=== PATIENT | female | born 1980 | race Hispanic/Latino ===

== ENCOUNTER 2018-02-26 20:28 | Emergency (ER) | payer OTHER ==
[2018-02-26 21:47] LABS: Urine Blood TRACE (NEG); Urine Glucose NEGATIVE (NEG); Urine Protein NEGATIVE (NEG)
--- NOTE | 2018-02-26 21:58 | RAD REPORT ---
EXAM DESCRIPTION: Key Yu (2 Views)02/26/2018 9:33 pm CLINICAL HISTORY: Chest pain COMPARISON: May 2017 FINDINGS: The lungs appear clear of acute infiltrate. The heart is normal size IMPRESSION: No acute abnormalities displayed
--- NOTE | 2018-02-26 23:31 | EDPHYS ---
Physician Documentation [facility] Name: Faiza Brown Age: 37 yrs Sex: Female : 1980 Arrival Date: 02/26/2018 Time: 20:45 Bed 25 Private MD: ED Physician Galen Rodriguez HPI: 02/26 23:20 This 37 yrs old Female presents to ER via EMS with complaints of High Blood snw Pressure. 23:20 The patient has elevated blood pressure and discovered this hx of htn, pt states her snw pressures have been high but when she took her antihypertensive, "I bottomed out". Onset: The symptoms/episode began/occurred acutely, 3 day(s) ago, and became worse today, and became persistent. Associated signs and symptoms: Pertinent positives: headache, upper extremity paresthesias. Severity of symptoms: At its worst the blood pressure was 220 mm Hg. The patient has experienced similar episodes in the past. The patient has been recently seen by a physician: the patient's primary care provider, to treat htn. 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 - Social history:: Smoking status: Patient/guardian denies using tobacco, Patient/guardian denies using alcohol, street drugs. - Ebola Screening: : Patient negative for fever greater than or equal to 101.5 degrees Fahrenheit, and additional compatible Ebola Virus Disease symptoms Patient denies exposure to infectious person Patient denies travel to an Ebola-affected area in the 21 days before illness onset. ROS: 23:23 Constitutional: Negative for fever, chills, and weight loss, Eyes: Negative for injury, snw pain, redness, and discharge, ENT: Negative for injury, pain, and discharge, Neck: Negative for injury, pain, and swelling, Cardiovascular: Negative for chest pain, palpitations, and edema, Respiratory: Negative for shortness of breath, cough, wheezing, and pleuritic chest pain, Abdomen/GI: Negative for abdominal pain, nausea, vomiting, diarrhea, and constipation, Back: Negative for injury and pain, : Negative for injury, bleeding, discharge, and swelling. 23:23 Skin: Negative for injury, rash, and discoloration, Neuro: Negative for headache, weakness, numbness, tingling, and seizure, Psych: Negative for depression, anxiety, suicide ideation, homicidal ideation, and hallucinations. 23:23 MS/extremity: Positive for paresthesias, of the right arm. Exam: 23:30 Constitutional: This is a well developed, well nourished patient who is awake, alert, snw and in no acute distress. Head/Face: Normocephalic, atraumatic. Eyes: Pupils equal round and reactive to light, extra-ocular motions intact. Lids and lashes normal. Conjunctiva and sclera are non-icteric and not injected. Cornea within normal limits. Periorbital areas with no swelling, redness, or edema. ENT: Nares patent. No nasal discharge, no septal abnormalities noted. Tympanic membranes are normal and external auditory canals are clear. Oropharynx with no redness, swelling, or masses, exudates, or evidence of obstruction, uvula midline. Mucous membranes moist. Neck: Trachea midline, no thyromegaly or masses palpated, and no cervical lymphadenopathy. Supple, full range of motion without nuchal rigidity, or vertebral point tenderness. No Meningismus. Chest/axilla: Normal chest wall appearance and motion. Nontender with no deformity. No lesions are appreciated. Cardiovascular: Regular rate and rhythm with a normal S1 and S2. No gallops, murmurs, or rubs. Normal PMI, no JVD. No pulse deficits. Respiratory: Lungs have equal breath sounds bilaterally, clear to auscultation and percussion. No rales, rhonchi or wheezes noted. No increased work of breathing, no retractions or nasal flaring. Abdomen/GI: Soft, non-tender, with normal bowel sounds. No distension or tympany. No guarding or rebound. No evidence of tenderness throughout. Back: No spinal tenderness. No costovertebral tenderness. Full range of motion. Skin: Warm, dry with normal turgor. Normal color with no rashes, no lesions, and no evidence of cellulitis. MS/ Extremity: Pulses equal, no cyanosis. Neurovascular intact. Full, normal range of motion. Neuro: Awake and alert, GCS 15, oriented to person, place, time, and situation. Cranial nerves II-XII grossly intact. Motor strength 5/5 in all extremities. Sensory grossly intact. Cerebellar exam normal. Normal gait. Psych: Awake, alert, with orientation to person, place and time. Behavior, mood, and affect are within normal limits. Vital Signs: 20:35 BP 158 / 96; Pulse 84; Resp 18; Temp 99.1(O); Pulse Ox 100% on R/A; Weight 92.99 kg fc (R); Height 5 ft. 4 in. (162.56 cm) (R); Pain 2/10; 22:54 BP 118 / 79 Supine; Pulse 81; wh 22:54 BP 141 / 87 Sitting; Pulse 83; wh 22:54 BP 126 / 89 Standing; Pulse 93; wh 02/27 00:00 BP 124 / 83; Pulse 85; Resp 18; Pulse Ox 98% on R/A; wh 02/26 20:35 Body Mass Index 35.19 (92.99 kg, 162.56 cm) fc MDM: 02/26 21:50 Patient medically screened. snw 23:31 Data reviewed: vital signs, nurses notes. Data interpreted: Pulse oximetry: is 100 %. snw Interpretation: normal. Counseling: I had a detailed discussion with the patient and/or guardian regarding: the historical points, exam findings, and any diagnostic results supporting the discharge/admit diagnosis, the presence of at least one elevated blood pressure reading (>120/80) during this emergency department visit, lab results, radiology results, the need for outpatient follow up, to return to the emergency department if symptoms worsen or persist or if there are any questions or concerns that arise at home. Special discussion: Based on the patient's history, exam, and Dx evaluation, there is no indication for emergent intervention or inpatient Tx. It is understood by the patient/guardian that if the Sx's persist or worsen they need to return immediately for re-evaluation. I have referred the patient to see his PCP for further evaluation of high blood pressure. Based on the history and exam findings, there is no indication for further emergent testing or inpatient evaluation. I discussed with the patient/guardian the need to see the superintendent tests for further evaluation of the symptoms. I discussed with the patient/guardian the need to see the primary care provider for further evaluation of the symptoms. 02/26 21:01 Order name: Urine Dipstick--Ancillary (enter results); Complete Time: 21:50 02/26 21:17 Order name: Troponin (emerg Dept Use Only); Complete Time: 22:37 snw 02/26 21:02 Order name: EKG; Complete Time: 21:02 02/26 21:02 Order name: EKG - Nurse/Tech; Complete Time: 21:02 02/26 21:17 Order name: Chest Pa And Lat (2 Views) XRAY; Complete Time: 22:07 snw 02/26 22:17 Order name: Urine --Ancillary (enter results); Complete Time: 22:23 mt 02/26 21:17 Order name: Urine Test (obtain specimen); Complete Time: 22:18 snw 02/26 22:48 Order name: Orthostatics; Complete Time: 22:54 snw Administered Medications: No medications were administered Disposition: 02/26/18 23:30 Discharged to Home. Impression: Essential (primary) hypertension. - Condition is Stable. - Discharge Instructions: Hypertension, Rehydration, Adult, Managing Your Hypertension. - Work release form, Medication Reconciliation Form, Thank You Letter, Antibiotic Education, Prescription Opioid Use form. - Follow up: Private Physician; When: 1 - 2 days; Reason: Recheck today's complaints, Continuance of care, Re-evaluation by your physician. Follow up: Emergency Department; When: As needed; Reason: Worsening of condition. Addendum: 03/01/2018 17:28 Co-signature as Attending Physician, Galen Rodriguez MD. g s Signatures: Dispatcher [employer] EDMS Britney Pan, GAS FLOW REGULATOR-C GAS FLOW REGULATOR-CsnPolina Lazaro RN RN Darcy Ngo Gregory, MD MD Corrections: (The following items were deleted from the chart) 02/27 00:01 02/26 23:30 02/26/2018 23:30 Discharged to Home. Impression: Essential (primary) hypertension. Condition is Stable. Forms are Medication Reconciliation Form, Thank You Letter, Antibiotic Education, Prescription Opioid Use. Follow up: Private Physician; When: 1 - 2 days; Reason: Recheck today's complaints, Continuance of care, Re-evaluation by your physician. Follow up: Emergency Department; When: As needed; Reason: Worsening of condition. snw
--- NOTE | 2018-02-26 23:31 | ER ---
Nurse's Notes [facility] Name: Faiza Brown Age: 37 yrs Sex: Female : 1980 Arrival Date: 02/26/2018 Time: 20:45 Bed 25 Private MD: Diagnosis: Essential (primary) hypertension Presentation: 02/26 20:35 Presenting complaint: Patient states: that at 1400 today she started to have right arm fc pain. She checked her bp and it was 188/129 so she took her bp medication early. The pain in the arm went away and she is now having on and off arm numbness. Pt has also had headache x 3 days and ringing in her ears. After taking her regular bp medication pt is complaining of dry mouth and nausea. Transition of care: patient was not received from another setting of care. Onset of symptoms was February 23, 2018. Risk Assessment: Do you want to hurt yourself or someone else? Patient reports no desire to harm self or others. Initial Sepsis Screen: Does the patient meet any 2 criteria? No. Patient's initial sepsis screen is negative. Does the patient have a suspected source of infection? No. Patient's initial sepsis screen is negative. Care prior to arrival: None. 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 - Social history:: Smoking status: Patient/guardian denies using tobacco, Patient/guardian denies using alcohol, street drugs. - Ebola Screening: : Patient negative for fever greater than or equal to 101.5 degrees Fahrenheit, and additional compatible Ebola Virus Disease symptoms Patient denies exposure to infectious person Patient denies travel to an Ebola-affected area in the 21 days before illness onset. Screenin:35 Abuse screen: Denies threats or abuse. Nutritional screening: No deficits noted. fc Tuberculosis screening: No symptoms or risk factors identified. Fall Risk None identified. Assessment: 21:45 General: Appears in no apparent distress. Behavior is calm, cooperative, appropriate wh for age. Pain: Complains of pain in right arm Pain began this afternoon. Neuro: Level of Consciousness is awake, alert, obeys commands, Oriented to person, place, time, situation, Heel Seam Rubber are equal bilaterally. Cardiovascular: Heart tones S1 S2. Respiratory: Airway is patent Respiratory effort is even, unlabored, Respiratory pattern is regular, symmetrical, Breath sounds are clear bilaterally. GI: Abdomen is round non-distended. : No signs and/or symptoms were reported regarding the genitourinary system. EENT: No signs and/or symptoms were reported regarding the EENT system. Derm: Skin is intact, is healthy with good turgor, Skin is pink, warm \T\ dry. normal. Musculoskeletal: Range of motion: intact in all extremities. 22:57 Reassessment: Patient appears in no apparent distress at this time. Patient and/or wh family updated on plan of care and expected duration. Pain level reassessed. Patient is alert, oriented x 3, equal unlabored respirations, skin warm/dry/pink. 23:59 Reassessment: Patient appears in no apparent distress at this time. Patient and/or wh family updated on plan of care and expected duration. Pain level reassessed. Patient is alert, oriented x 3, equal unlabored respirations, skin warm/dry/pink. Patient denies pain at this time. Vital Signs: 20:35 BP 158 / 96; Pulse 84; Resp 18; Temp 99.1(O); Pulse Ox 100% on R/A; Weight 92.99 kg fc (R); Height 5 ft. 4 in. (162.56 cm) (R); Pain 2/10; 22:54 BP 118 / 79 Supine; Pulse 81; wh 22:54 BP 141 / 87 Sitting; Pulse 83; wh 22:54 BP 126 / 89 Standing; Pulse 93; 02/27 00:00 BP 124 / 83; Pulse 85; Resp 18; Pulse Ox 98% on R/A; 02/26 20:35 Body Mass Index 35.19 (92.99 kg, 162.56 cm) ED Course: 02/26 20:35 Arm band placed on Patient placed in an exam room, on a stretcher. 20:35 Patient has correct armband on for positive identification. Placed in gown. Bed in low fc position. Call light in reach. Side rails up X 1. machinist mechanic on. Pulse ox on. NIBP on. 20:35 No provider procedures requiring assistance completed. fc 20:45 Patient arrived in ED. 20:53 Triage completed. 20:59 Galen Rodriguez MD is Attending Physician. 20:59 EKG done, by ED staff, reviewed by Britney LEBLANC. jp3 21:16 Britney Pan FNP-C is PHCP. snw 21:16 Galen Rodriguez MD is Attending Physician. snw 21:33 Chest Pa And Lat (2 Views) XRAY In Process Unspecified. EDMS 21:46 Darcy Foy is Primary Nurse. 22:05 Inserted saline lock: 22 gauge in left antecubital area, using aseptic technique. Blood wh collected. 22:43 Warm blanket given. Pillow given. jp3 02/27 00:01 IV discontinued, intact, bleeding controlled, No redness/swelling at site. wh Administered Medications: No medications were administered Outcome: 02/26 23:30 Discharge ordered by . snw 02/27 00:00 Discharged to home ambulatory, with family. Condition: good Discharge instructions given to patient, Instructed on discharge instructions, follow up and referral plans. POC Hypertension Demonstrated understanding of instructions, follow-up care, POC 00:01 Patient left the ED. Signatures: Dispatcher [employer] EDNM Britney Pan FNP-C LIDAR ANALYST-Csnw Polina Garvey, RN RN Darcy Foy Galen Rodriguez MD MD Earnest Steven jp3
--- NOTE | 2018-02-27 07:56 | EKG ---
Test Date: 2018-02-26 Test Time: 20:59:00 Computer Specialist: AMAN MEASUREMENT RESULTS: Intervals: Rate: 82 [place]: 150 QRSD: 100 QT: 392 QTc: 457 [place]: P: 39 [place]: 150 QRS: 39 T: 23 INTERPRETIVE STATEMENTS: Normal sinus rhythm Normal ECG Compared to ECG 05/15/2017 23:46:02 Myocardial infarct finding no longer present Electronically Signed On 02-27-18 07:56:13 CDT by Woodrow Logan
== END 2018-02-27 00:01 | disposition home or self-care (01) ==
LOC: ER 20:28
DX: I10 Essential (primary) hypertension (principal); I25.2 Old myocardial infarction
CPT/HCPCS: 36415; 71046; 81003; 81025; 84484; 93005; 99284

== ENCOUNTER 2019-03-07 08:03 | Emergency (ER) | payer OTHER ==
--- NOTE | 2019-03-07 08:53 | RAD REPORT ---
EXAM DESCRIPTION: CT - Head Brain Wo Cont - 03/07/2019 8:40 am CLINICAL HISTORY: Numbness COMPARISON: 2017 TECHNIQUE: Computed axial tomography of the head was obtained. IV contrast was not requested. All CT scans are performed using dose optimization technique as appropriate and may include automated exposure control or mA/KV adjustment according to patient size. FINDINGS: An intracranial bleed is not seen . The ventricles are normal in caliber. No extra-axial fluid collection is noted. Cerebellar tonsillar ectopia is present Fluid within the sinuses/ mastoids is not seen. IMPRESSION: No acute intracranial abnormality is seen. If patient's symptoms persist MRI of the bra in would be recommended. Cerebellar tonsillar ectopia
[2019-03-07 09:16] LABS: Absolute Lymphocytes (CBC) 2.3 K/uL (0.7-4.9); Basophils % 1.4 % (0-1.3); Hematocrit 33.6 % (36.0-45.0); MPV 7.7 fL (7.6-11.3); RBC Red Blood Cell Count 4.92 M/uL (3.86-4.86)
[2019-03-07 09:27] LABS: BUN Blood Urea Nitrogen 11 mg/dL (7-18); Bicarbonate 25 mmol/L (21-32); Glucose Level 107 mg/dL (74-106); Magnesium 2.3 mg/dL (1.8-2.4); NT PRO-BNP 6 pg/mL (<125); Potassium 3.3 mmol/L (3.5-5.1); Sodium Level 139 mmol/L (136-145); Troponin (Emerg Dept Use Only) < 0.02 ng/mL (0.0-0.045)
[2019-03-07] MEDS ORDERED: POTASSIUM CL SA 10 MEQ TAB PO ONE (09:32)
--- NOTE | 2019-03-07 10:00 | ER ---
Nurse's Notes [facility] Name: Faiza Brown Age: 38 yrs Sex: Female : 1980 Arrival Date: 03/07/2019 Time: 08:07 Bed 20 Private MD: Unknown, Unknown Diagnosis: Hypertension;Chest pain, unspecified Presentation: 03/07 08:15 Presenting complaint: Patient states: checked BP last night around 10 PM (169/112), em took olmesartan-hctz last night, also c/o of left arm and leg feeling "heavy" fell asleep last night, woke up this morning still feels left arm and leg is heavy, denies numbness or tingling, denies pain. 08:15 Transition of care: patient was not received from another setting of care. Onset of em symptoms was March 06, 2019 at 22:00. Risk Assessment: Do you want to hurt yourself or someone else? Patient reports no desire to harm self or others. Initial Sepsis Screen: Does the patient meet any 2 criteria? No. Patient's initial sepsis screen is negative. Does the patient have a suspected source of infection? No. Patient's initial sepsis screen is negative. Care prior to arrival: None. 08:15 Method Of Arrival: Ambulatory em 08:27 Acuity: SIL [address] SUPERVISOR: 08:15 LMP 02/28/2019 em Historical: - Allergies: 08:15 No Known Allergies; em - Home Meds: 08:15 olmesartan-hydrochlorothiazide oral 20-12.5 mg oral [Active]; em - PMHx: 08:15 Hypertension; Myocardial infarction; em - PSHx: 08:15 ; Tubal ligation; em - Immunization history:: Last tetanus immunization: up to date Flu vaccine is not up to date. - Social history:: Smoking status: Patient/guardian denies using tobacco. - Ebola Screening: : Patient negative for fever greater than or equal to 101.5 degrees Fahrenheit, and additional compatible Ebola Virus Disease symptoms Patient denies exposure to infectious person Patient denies travel to an Ebola-affected area in the 21 days before illness onset No symptoms or risks identified at this time. - Family history:: not pertinent. - Hospitalizations: : No recent hospitalization is reported. Screenin:15 Abuse screen: Denies threats or abuse. Nutritional screening: No deficits noted. em Tuberculosis screening: No symptoms or risk factors identified. Fall Risk None identified. Assessment: 08:15 General: Appears in no apparent distress. comfortable, Behavior is calm, cooperative. em Pain: Denies pain. Neuro: Level of Consciousness is awake, alert, obeys commands, Oriented to person, place, time, situation, Appropriate for age Apparatus Lineman are equal bilaterally Moves all extremities. Gait is steady, Speech is normal, Facial symmetry appears normal, Reports "heavy left arm and left leg". Denies blurred vision dizziness, numbness headache. Cardiovascular: Denies chest pain, Capillary refill < 3 seconds Patient's skin is warm and dry. Respiratory: Airway is patent Respiratory effort is even, unlabored, Respiratory pattern is regular, symmetrical. Derm: Skin is intact, is healthy with good turgor, Skin is pink, warm \\T\\ dry. Musculoskeletal: Capillary refill < 3 seconds, Range of motion: intact in all extremities. 08:15 Reassessment: I agree with assessment completed by Geraldo Bolden LVN . aa5 09:15 Reassessment: Patient appears in no apparent distress at this time. Patient and/or em family updated on plan of care and expected duration. Pain level reassessed. Patient is alert, oriented x 3, equal unlabored respirations, skin warm/dry/pink. Patient states symptoms have not improved. Vital Signs: 08:15 BP 140 / 86; Pulse 86; Resp 18; Pulse Ox 100% on R/A; Weight 99.79 kg; Height 5 ft. 4 em in. (162.56 cm); Pain 0/10; 09:07 BP 127 / 78; Pulse 78; Resp 16; Pulse Ox 99% on R/A; Pain 0/10; em 09:15 Temp 98.0(O); em 08:15 Body Mass Index 37.76 (99.79 kg, 162.56 cm) em ED Course: 08:07 Patient arrived in ED. ag5 08:08 Unknown, Unknown is Private Physician. ag5 08:13 Geraldo Bolden LVN is Primary Nurse. em 08:13 Cabrera Doty MD is Attending Physician. rn 08:15 Arm band placed on. em 08:15 Patient has correct armband on for positive identification. Bed in low position. Call em light in reach. Pulse ox on. NIBP on. 08:27 Triage completed. aa5 08:40 CT completed. Patient tolerated procedure well. Patient moved to radiology. mw3 08:40 CT Head Brain wo Cont In Process Unspecified. EDMS 08:46 XRAY Chest (1 view) In Process Unspecified. EDMS 09:00 Initial lab(s) drawn, by me, sent to lab. EKG done, by ED staff, reviewed by Cabrera Doty MD. Inserted saline lock: 20 gauge in right antecubital area, using aseptic technique. Blood collected. 10:08 No provider procedures requiring assistance completed. IV discontinued, intact, em bleeding controlled, No redness/swelling at site. Pressure dressing applied. Administered Medications: 09:36 Drug: Potassium Chloride 40 mEq Route: PO; em 10:07 Follow up: Response: No adverse reaction em Outcome: 09:59 Discharge ordered by MD. rn 10:08 Discharged to home ambulatory. em 10:08 Condition: good 10:08 Discharge instructions given to patient, Instructed on discharge instructions, follow up and referral plans. Demonstrated understanding of instructions, follow-up care. 10:08 Patient left the ED. em Signatures: Dispatcher [employer] EDMT Geraldo Bolden, PRINTED CIRCUIT BOARDS ROUTER PRINTED CIRCUIT BOARDS ROUTER Cabrera Shaikh MD MD rn Calderon, Audri, RN RN aa5 Vandana Maldonado mw3 Syeda Nuno ag5 Corrections: (The following items were deleted from the chart) 18:34 08:15 Neuro: Level of Consciousness is awake, alert, obeys commands, Oriented to aa5 person, place, time, situation, Appropriate for age Apparatus Lineman are equal bilaterally Moves all extremities. Gait is steady, Speech is normal, Facial symmetry appears normal, heavy in left arm and left leg. Reports "heavy left arm and left leg". Denies blurred vision dizziness, numbness headache em
--- NOTE | 2019-03-07 10:00 | EDPHYS ---
Physician Documentation [facility] Name: Faiza Brown Age: 38 yrs Sex: Female : 1980 Arrival Date: 03/07/2019 Time: 08:07 Bed 20 Private MD: Unknown, Unknown ED Physician Cabrera Doty HPI: 03/07 08:29 This 38 yrs old Female presents to ER via Ambulatory with complaints of Blood rn Pressure Problem, Arm Problem. 08:29 Reports BP was elevated last night, had some chest pain, states happens when BP goes rn up, took her meds and went to sleep. Woke up and BP improved but still having "heaviness" of left arm. States constant since last night. No focal weakness. No headache. No fever/cough/trauma. . Onset: The symptoms/episode began/occurred last night. Severity of symptoms: At their worst the symptoms were moderate in the emergency department the symptoms are unchanged. The patient has experienced similar episodes in the past. The patient has not recently seen a physician. 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 - Social history:: Smoking status: Patient/guardian denies using tobacco. - Ebola Screening: : Patient negative for fever greater than or equal to 101.5 degrees Fahrenheit, and additional compatible Ebola Virus Disease symptoms Patient denies exposure to infectious person Patient denies travel to an Ebola-affected area in the 21 days before illness onset No symptoms or risks identified at this time. - Family history:: not pertinent. - Hospitalizations: : No recent hospitalization is reported. ROS: 08:29 Constitutional: Negative for fever, chills, and weight loss, Eyes: Negative for injury, rn pain, redness, and discharge, Neck: Negative for injury, pain, and swelling, Cardiovascular: Negative for palpitations, and edema, Respiratory: Negative for shortness of breath, cough, wheezing, and pleuritic chest pain, Abdomen/GI: Negative for abdominal pain, nausea, vomiting, diarrhea, and constipation, Back: Negative for injury and pain, MS/Extremity: Negative for injury and deformity, Skin: Negative for injury, rash, and discoloration, Neuro: Negative for headache, weakness, and seizure. Exam: 08:29 Constitutional: This is a well developed, well nourished patient who is awake, alert, rn and in no acute distress. Head/Face: Normocephalic, atraumatic. Eyes: Pupils equal round and reactive to light, extra-ocular motions intact. Lids and lashes normal. Conjunctiva and sclera are non-icteric and not injected. Cornea within normal limits. Periorbital areas with no swelling, redness, or edema. Cardiovascular: Regular rate and rhythm. No pulse deficits. Respiratory: Lungs have equal breath sounds bilaterally, clear to auscultation. No increased work of breathing, no retractions or nasal flaring. Abdomen/GI: soft, non-tender MS/ Extremity: Pulses equal, no cyanosis. Neurovascular intact. Full, normal range of motion. Equal circumference. Neuro: Awake and alert, GCS 15, oriented to person, place, time, and situation. Cranial nerves II-XII grossly intact. Motor strength 5/5 in all extremities. Sensory grossly intact. Cerebellar exam normal. 09:32 ECG was reviewed by the Attending Physician. rn Vital Signs: 08:15 BP 140 / 86; Pulse 86; Resp 18; Pulse Ox 100% on R/A; Weight 99.79 kg; Height 5 ft. 4 em in. (162.56 cm); Pain 0/10; 09:07 BP 127 / 78; Pulse 78; Resp 16; Pulse Ox 99% on R/A; Pain 0/10; em 09:15 Temp 98.0(O); em 08:15 Body Mass Index 37.76 (99.79 kg, 162.56 cm) em MDM: 08:13 Patient medically screened. rn 09:57 Differential Diagnosis metabolic disorder, hypertensive changes, pericarditis, CVA, rn AMI. Data reviewed: vital signs, nurses notes. 09:57 Test interpretation: by ED physician or midlevel provider: ECG, plain radiologic rn studies, CXR negative for pneumothorax or acute infiltrate. Counseling: I had a detailed discussion with the patient and/or guardian regarding: the historical points, exam findings, and any diagnostic results supporting the discharge/admit diagnosis, lab results, radiology results, the need for outpatient follow up, to return to the emergency department if symptoms worsen or persist or if there are any questions or concerns that arise at home. Counseling: I had a detailed discussion with the patient and/or guardian regarding: the presence of at least one elevated blood pressure reading (>120/80) during this emergency department visit. Special discussion: Based on the patient's history, exam, and Dx evaluation, there is no indication for emergent intervention or inpatient Tx. It is understood by the patient/guardian that if the Sx's persist or worsen they need to return immediately for re-evaluation. I have referred the patient to see his PCP for further evaluation of high blood pressure. I discussed with the patient/guardian in detail that at this point there is no indication for admission to the hospital. It is understood, however, that if the symptoms persist or worsen the patient needs to return immediately for re-evaluation. ED course: Pt with negative workup in setting of constant symptoms since last night, will dc home. BP improved. Recommended BP journal and pcp and cardiology f/u. . 03/07 08:29 Order name: Basic Metabolic Panel; Complete Time: : rn 03/07 08:29 Order name: CBC with Diff rn 03/07 08:29 Order name: CT Head Brain wo Cont; Complete Time: rn 03/07 08:29 Order name: Magnesium; Complete Time: : rn 03/07 08:29 Order name: NT PRO-BNP; Complete Time: : rn 03/07 08:29 Order name: Troponin (emerg Dept Use Only); Complete Time: : rn 03/07 08:29 Order name: IV Start; Complete Time: : rn 03/07 08:29 Order name: XRAY Chest (1 view) rn 03/07 08:29 Order name: EKG; Complete Time: rn 03/07 08:29 Order name: Cardiac monitoring; Complete Time: : rn 03/07 08:29 Order name: EKG - Nurse/Tech; Complete Time: : rn 03/07 08:29 Order name: Labs collected and sent; Complete Time: rn 03/07 08:29 Order name: O2 Per Protocol; Complete Time: 08:30 rn 03/07 08:29 Order name: O2 Sat Monitoring; Complete Time: 08:30 rn EC:32 Rate is 72 beats/min. Rhythm is regular. QRS [place] is Normal. AR interval is normal. QRS rn interval is normal. QT interval is normal. No Q waves. T waves are Inverted in leads aVR, V2. No ST changes noted. Clinical impression: NSR w/ Non-specific ST/T Changes. Interpreted by me. Reviewed by me. Administered Medications: 09:36 Drug: Potassium Chloride 40 mEq Route: PO; em 10:07 Follow up: Response: No adverse reaction em Disposition: 03/07/19 09:59 Discharged to Home. Impression: Hypertension, Chest pain, unspecified. - Condition is Stable. - Discharge Instructions: Nonspecific Chest Pain, Hypertension. - Medication Reconciliation Form, Thank You Letter, Antibiotic Education, Prescription Opioid Use form. - Follow up: Private Physician; When: As needed; Reason: Recheck today's complaints, Re-evaluation by your physician. - Problem is new. - Symptoms have improved. Signatures: Dispatcher [employer] EDGeraldo Cameron, PATIENT SAFETY OFFICER PATIENT SAFETY OFFICER Cabrera Shaikh MD MD financial intern: (The following items were deleted from the chart) 10: 09:59 03/07/2019 09:59 Discharged to Home. Impression: Hypertension; Chest pain, em unspecified. Condition is Stable. Forms are Medication Reconciliation Form, Thank You Letter, Antibiotic Education, Prescription Opioid Use. Follow up: Private Physician; When: As needed; Reason: Recheck today's complaints, Re-evaluation by your physician. Problem is new. Symptoms have improved. rn
[2019-03-07 10:13] VITALS: BP 127/78; O2SAT 99
[2019-03-07 10:15] VITALS: TEMP 98
[2019-03-07 11:54] LABS: Anisocytosis 2+; Blood Morphology Comment NOTED (NOT SEEN); Platelet Estimate ADEQ; Polychromasia 1+; Urine White Blood Cell Casts OK
--- NOTE | 2019-03-07 12:10 | RAD REPORT ---
EXAM DESCRIPTION: Key Single View03/07/2019 8:47 am CLINICAL HISTORY: Chest pain COMPARISON: 2018 FINDINGS: The lungs appear clear of acute infiltrate. The heart is normal size IMPRESSION: No acute abnormalities displayed
--- NOTE | 2019-03-08 06:18 | EKG ---
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
== END 2019-03-07 10:08 | disposition home or self-care (01) ==
LOC: ER 08:03
DX: I10 Essential (primary) hypertension (principal); R07.9 Chest pain, unspecified; I25.2 Old myocardial infarction
CPT/HCPCS: 36415; 70450; 71045; 80048; 83735; 83880; 84484; 85025; 93005; 99284

== ENCOUNTER 2021-09-19 16:54 | Emergency (ER) | payer OTHER ==
--- OUTSIDE RECORDS SUMMARY | 2021-09-19 16:56 | XMS REPORT | Continuity of Care Document ---
:1980 Author Organization [facility] t Address Formerly [facility] [place] [address] Care Team Providers Name Role Phone Mishel MOORE, A Primary Care Physician Unavailable Tritaylor BROOM MAKER Attending Clinician TRITAYLOR Attending Clinician Unavailable Payers Payer Name Policy Type Policy Number Effective Date Expiration Date S ource Problems Condition Condition Condition Status Onset Resolution Last Treating Co mments Source Name Details Category Date Date Treatment Clinician Date Vulval Vulval Disease Active 2021- Univers cellulitis cellulitis 4-19 it y of 00:00: [address] BMI BMI Disease Active 2021- Univers 40.0-44.9, 40.0-44.9, 4-19 it y of adult adult 00:00: [address] Hypertensi Hypertensi Disease Active 2020-0 U nivers ve urgency ve urgency 4-22 it y of 00:00: [address] SOB SOB Disease Active 2020-0 Univers (shortness (shortness 4-22 it y of of breath[place] [address] [place] [address] Cough Cough Disease Active 2020-0 Univers 4-22 ity of 00:00: [address] Congestion Congestion Disease Active 2020-0 U nivers of nasal of nasal 4-22 ity of sinus sinus 00:00: [address] Diarrhea, Diarrhea, Disease Active 2020-0 Uni vers unspecifie unspecifie 4-22 it y of d type d type 00:00: [address] Herpes Herpes Disease Active 2020-0 Univers simplex simplex 2-07 ity of infection infection 00:00: [facility] 00 Medical Branch Hepatomega Hepatomega Disease Active 2018-06 U nivers ly ly 2-13 ity of 00:00: [place] [facility] Need for Need for Disease Active 2018-06 Unive rs hepatitis hepatitis 2-05 ity of B B 00:00: [place] vaccinatio vaccinatio 00 Me dical n n Branch Menorrhagi Menorrhagi Disease Active 2018-06 U nivers a with a with 1-25 ity of regular regular 00:00: [place] cycle cycle 00 Medical Branch Iron Iron Disease Active 2018-06 Univers deficiency deficiency 1-25 it y of anemia due anemia due 00:[place] chronic to chronic 00 Me dical blood loss blood loss Br anch Thrombocyt Thrombocyt Disease Active 2018-06 U nivers osis osis 1-25 ity of 00:00: [place] 00 Medical Branch Arthralgia Arthralgia Disease Active 2018-06 U nivalethea of of 1-25 ity of multiple multiple 00:00: [place] joints joints 00 Medical Branch Elevated Elevated Disease Active 2018-06 Unive rs ALT ALT 1-25 ity of measuremen measuremen 00:[place] 00 [facility] Mixed Mixed Disease Active 2018-06 Univers dyslipidem dyslipidem 1-25 it y of ia ia 00:00: [place] [facility] Prediabete Prediabete Disease Active 2018-06 U nivers s s 1-25 ity of 00:00: [place] [facility] Metabolic Metabolic Disease Active 2018-06 Uni vers syndrome syndrome 1-25 ity of 00:00: [place] [facility] Obesity Obesity Disease Active 2018-06 Univers (BMI (BMI 1-11 ity of 30-39.9) 30-39.9) 00:00: [place] [facility] Chronic Chronic Disease Active 2018-06 Univers depression depression 1-10 it y of 00:00: [place] [facility] Hair loss Hair loss Disease Active 2018-06 Uni vers 1-10 ity of 00:00: [place] [facility] Essential Essential Disease Active Uni vers hypertensi hypertensi 6-11 it y of on on 00:00: [place] [address] Medical Branch Fatty Fatty Disease Active Univers liver liver ity of [facility] [place] [facility] Branch Allergies, Adverse Reactions, Alerts Allergy Allergy Status Severity Reaction(s) Onset Inactive Treating Comm ents Source Name Type Date Date Clinician FISH OIL DRUG Active Hives 2019-0 Univers INGREDI 06-04 ity of 00:00: [place] 00 Medical Branch Fish Oil Propensi Active Hives 2020-0 Univer s ty to 06-04 ity of adverse 00:00: [place] reaction 00 Medical s Branch LOSARTAN DRUG Active Swelling 2018- Univer s INGREDI 06-27 ity of 00:00: [place] 00 Medical Branch Losartan Propensi Active Swelling 2018- Univ ers ty to 06-27 ity of adverse 00:00: [place] reaction 00 Medical s Branch LATEX DRUG Active Hives 2019- Univers INGREDI 06-13 ity of 00:00: [place] 00 Medical Branch Latex Propensi Active Hives 2018- Univers ty to 06-13 ity of adverse 00:00: [place] reaction 00 Medical s Branch FLUOXETI DRUG Active Rash 2018- Univers NE HCL INGREDI 816 ity of 00:00: [place] 00 Medical Branch Fluoxeti Propensi Active Rash 2017- Univer s ne Hcl ty to 8-16 ity of adverse 00:00: [place] reaction 00 [facility] s Branch Social History Social Habit Start Date Stop Date Quantity Comments Source History SDID University o f Alcohol Frequency [facility] edical Branch History [facility] University o f Alcohol Std [place] [facility] Drinks Branch History [facility] University o f Alcohol Binge [facility] [place] Alcohol intake 2021-09-19 2021-09-19 Ex-drinker University of 00:00:00 00:00:00 (finding) [facility] Alcohol Comment 2013-11-11 2013-11-11 occasionally Univers ity of 00:00:00 00:00:00 [facility] Tobacco use and 2013-11-11 2013-11-11 Never used Universit y of exposure 00:00:00 00:00:00 [facility] Sex [birth year] At [birth year] Universit y of 00:00:00 00:00:00 [facility] Smoking Status Start Date Stop Date Source Never smoker [facility] Medications Ordered Filled Start Stop Current Ordering Indication Dosage Frequency Signature Comments Components Source Medication Medication Date Date Medication? Clinician (SIG) Name Name clindamycin 202- Yes [id number] 300mg Take 1 Univers 300 mg 09-19 capsule by ity of capsule 00:00: 04:59 mouth 4 [place] 00 :00 (four) Medical times Branch daily for 10 days. clindamycin 2021- Yes [id number] 300mg Take 1 Univers 300 mg 09-19 capsule by ity of capsule 00:00: 04:59 mouth 4 [place] 00 :00 (four) Medical times Branch daily for 10 days. benzocaine- 2021- Yes [id number] Apply to Univers menthol, 09-19-25 area(s) as ity of DERMOPLAST, 00:00: 04:59 needed for [place] 20-0.5 % 00 :00 Pain for Medical topical up to 5 Branch spray days. ibuprofen-a 2021- Yes [id number] 2{tbl} Take 2 Univers cetaminophe 09-19-25 tablets by i ty of n 125-250 00:00: 04:59 mouth as [place] as mg Tab 00 :00 needed for Medical Pain Branch (scale 4-6) (every 8 hours as needed) for up to 5 days. benzocaine- 2021- Yes [id number] Apply to Univers menthol, 09-19- area(s) as ity of DERMOPLAST, 00:00: 04:59 needed for [place] 20-0.5 % 00 :00 Pain for Medical topical up to 5 Branch spray days. ibuprofen-a 2021- Yes [id number] 2{tbl} Take 2 Univers cetaminophe 09-19-25 tablets by i ty of n 125-250 00:00: 04:59 mouth as [place] as mg Tab 00 :00 needed for Medical Pain Branch (scale 4-6) (every 8 hours as needed) for up to 5 days. FLUTICASONE Yes [id number] SPRAY 2 Univers PROPIONATE 2-11 SPRAYS ity of 50 00:00: INTO EACH [place] mcg/actuati 00 NOSTRIL Medic al on nasal EVERY DAY Branch spray FLUTICASONE Yes [id number] SPRAY 2 Univers PROPIONATE 2-11 SPRAYS ity of 50 00:00: INTO EACH [place] mcg/actuati 00 NOSTRIL Medic al on nasal EVERY DAY Branch spray lisinopriL- Yes [id number] 1{tbl} Take 1 Univers hydrochloro 1-22 tablet by ity of thiazide 00:00: mouth [place] 10-12.5 mg 00 daily. Medical per tablet Branch felodipine Yes [id number] 10mg Take 1 U nivers 10 mg 24 hr 1-22 tablet by ity of tablet 00:00: mouth [place] 00 daily. Medical Branch lisinopriL- Yes [id number] 1{tbl} Take 1 Univers hydrochloro 1-22 tablet by ity of thiazide 00:00: mouth [place] 10-12.5 mg 00 daily. Medical per tablet Branch felodipine Yes [id number] 10mg Take 1 U nivers 10 mg 24 hr 1-22 tablet by ity of tablet 00:00: mouth [place] 00 daily. Medical Branch benzonatate 2021- No [id number] 100mg Take 1 Univers 100 mg 1-20 -19 capsule by ity of capsule 00:00: 00:00 mouth 3 [place] 00 :00 (three) Medical times Branch daily as needed for Cough. benzonatate 2021- No [id number] 100mg Take 1 Univers 100 mg -20 -19 capsule by ity of capsule 00:00: 00:00 mouth 3 [place] 00 :00 (three) Medical times Branch daily as needed for Cough. nystatin 2020-06 Yes [id number] Apply to Univers 100,000 1-11 area(s) 2 ity of unit/gram 00:00: (two) [place] powder 00 times Medical daily. Branch nystatin 2020-06 Yes [id number] Apply to Univers 100,000 1-11 area(s) 2 ity of unit/gram 00:00: (two) [place] powder 00 times Medical daily. Branch Butalbital- Yes [id number] 1{capsu Take 1 Univers Acetaminoph 5-12 le} capsule by it y of en-Caff 00:00: mouth [place] (FIORICET) 00 every 6 Medica l 50-300-40 (six) Branch mg per hours as capsule needed for Pain (scale 4-6). Butalbital- Yes [id number] 1{capsu Take 1 Univers Acetaminoph 5-12 le} capsule by it y of en-Caff 00:00: mouth [place] (FIORICET) 00 every 6 Medica l 50-300-40 (six) Branch mg per hours as capsule needed for Pain (scale 4-6). butalbital- Yes [id number] 1{tbl} Take 1 Univers acetaminoph 1-02 tablet by ity of en-caff 00:00: mouth [place] 50-325-40 00 every 4 Medical mg tablet (four) Branch hours as needed for Pain (scale 4-6). butalbital- Yes [id number] 1{tbl} Take 1 Univers acetaminoph 1-02 tablet by ity of en-caff 00:00: mouth [place] 50-325-40 00 every 4 Medical mg tablet (four) Branch hours as needed for Pain (scale 4-6). Immunizations Ordered Filled Immunization Date Status Comments [facility] e Immunization Name Name Influenza Virus 2021-04-13 Completed Universit y of Vaccine Quad IM, 00:00:00 [facility] dical Preserv and ABX Branch Free 6 MO-64 YRS Influenza Virus 2021-04-13 Completed Universit y of Vaccine Quad IM, 00:00:00 [facility] dical Preserv and ABX Branch Free 6 MO-64 YRS SARS-COV-2 COVID-19 2020-09-14 Completed Unive rsity of MODERNA VACCINE 00:00:00 [facility] SARS-COV-2 COVID-19 2020-09-14 Completed Unive rsity of MODERNA VACCINE 00:00:00 [facility] SARS-COV-2 COVID-19 2020-08-17 Completed Unive rsity of MODERNA VACCINE 00:00:00 [facility] SARS-COV-2 COVID-19 2020-08-17 Completed Unive rsity of MODERNA VACCINE 00:00:00 [facility] Influenza Virus 2020-04-13 Completed Universit y of Vaccine Quad .5 mL 00:00:00 [place] [facility] IM 6+ MO Branch Influenza Virus 2020-04-13 Completed Universit y of Vaccine Quad .5 mL 00:00:00 [place] [facility] IM 6+ [place] Branch HEP B, Adult Dosage 2019-12-07 Completed Unive rsity of 00:00:00 [facility] HEP B, Adult Dosage 2019-12-07 Completed Unive rsity of 00:00:00 [facility] HEP B, Adult Dosage 2019-07-06 Completed Unive rsity of 00:00:00 [facility] HEP B, Adult Dosage 2019-07-06 Completed Unive rsity of 00:00:00 [facility] HEP B, Adult Dosage 2019-06-04 Completed Unive rsity of 00:00:00 [facility] HEP B, Adult Dosage 2019-06-04 Completed Unive rsity of 00:00:00 [facility] Influenza Virus 2019-03-17 Completed Universit y of Vaccine Quad .5 mL 00:00:00 [place] [facility] IM 6+ MO Branch Influenza Virus 2019-03-17 Completed Universit y of Vaccine Quad .5 mL 00:00:00 [facility] [place] [facility] IM 6+ MO Branch TDAP 2013-11-11 Completed University of 00:00:00 [facility] TDAP 2013-11-11 Completed University of 00:00:00 [facility] Td 1993-06-03 Completed University of 00:00:00 [facility] Td 1993-06-03 Completed University of 00:00:00 [facility] Vital Signs Vital Name Observation Time Observation Value Comments Source Systolic blood 2021-09-19 16:01:00 135 mm[Hg] Univer sity of pressure [facility] Diastolic blood 2021-09-19 16:01:00 92 mm[Hg] Unive rsity of pressure [facility] Heart rate 2021-09-19 16:01:00 87 /min [facility] Body temperature 2021-09-19 16:01:00 36.78 [facility] Respiratory rate 2021-09-19 16:01:00 18 /[facility] Body weight 2021-09-19 16:01:00 99.292 kg [facility] BMI 2021-09-19 16:01:00 41.36 kg/m2 [facility] Procedures This patient has no known procedures. Plan of Care Planned Activity Planned Date Details Comments Source Encounters Start End Encounter Admission Attending Care Care Encounter Source Date/Time Date/Time Type Type Clinicians Facility Department ID 2021-09-19 2021-09-19 Office REENA Berg [id number] [facility] 11:00:00 11:50:07 Visit Mehran MAK [id number] it y of WOMEN'S [id number] [facility] [id number] [place] [id number] Branch 2021-09-19 2021-09-19 Outpatient R MEHRAN BERG [facility] B [id number] [facility] 11:00:00 11:50:07 MEHRAN BERG dheeraj [facility] Results This patient has no known results.
[2021-09-19] MEDS ORDERED: ONDANSETRON 4 MG/2 ML VIAL ONE (17:25)
[2021-09-19] MEDS ORDERED: CLINDAMYCIN 900MG/D5W 900 MG/50 ML IVPB IV ONE (17:25)
[2021-09-19] MEDS ORDERED: NA CHLORIDE 0.9% 1,000 ML ONE (17:25)
[2021-09-19] MEDS ORDERED: MORPHINE 4 MG/ML SYR ONE (17:25)
--- NOTE | 2021-09-19 18:50 | ER ---
Nurse's Notes [facility] Name: Faiza Brown Age: 41 yrs Sex: Female : 1980 Arrival Date: 09/19/2021 Time: 17:02 Bed 19 Private MD: Diagnosis: Vomiting-side effect to clindamycin;Cutaneous abscess of groin Presentation: 09/19 16:45 Chief complaint: EMS states: Pt was seen at [facility] office at 1100 and had a cyst vg1 removed from outter labia; at about 1300 pt began to 'feel bad' and c/o NV; Pt states had cyst lanced and removed and was left open with gauze. 16:45 Coronavirus screen: Vaccine status: Patient reports receiving the 2nd dose of the covid vg1 vaccine. Client denies travel out of the [place] in the last 14 days. Ebola Screen: Patient negative for fever greater than or equal to 101.5 degrees Fahrenheit, and additional compatible Ebola Virus Disease symptoms. Initial Sepsis Screen: Does the patient meet any 2 criteria? HR > 90 bpm. Does the patient have a suspected source of infection? No. Patient's initial sepsis screen is negative. Risk Assessment: Do you want to hurt yourself or someone else? Patient reports no desire to harm self or others. Onset of symptoms was September 19, 2021. 16:45 Method Of Arrival: EMS: [place] [id number] 16:45 Acuity: SIL 3 vg1 Triage Assessment: 16:50 General: Appears in no apparent distress. uncomfortable, Behavior is cooperative, vg1 anxious. Pain: Complains of pain in groin Pain currently is 7 out of 10 on a pain scale. Pain began 4 hours ago. EENT: No signs and/or symptoms were reported regarding the EENT system. Neuro: Level of Consciousness is awake, alert, obeys commands, Oriented to person, place, time, situation. Cardiovascular: Patient's skin is warm and dry. Respiratory: Airway is patent Respiratory effort is even, unlabored. GI: Reports nausea, vomiting. : No signs and/or symptoms were reported regarding the genitourinary system. Derm: Skin is intact, is healthy with good turgor. Musculoskeletal: Circulation, motion, and sensation intact. TILE GRINDER: 16:50 LMP 09/18/2021 vg1 Historical: - Allergies: 17:09 Latex, Natural Rubber; vg1 - Home Meds: 17:09 Lisinopril Oral [Active]; vg1 - PMHx: 17:09 Hypertension; Myocardial infarction; vg1 - Immunization history:: Client reports receiving the 2nd dose of the Covid vaccine. - Social history:: Smoking status: Patient denies any tobacco usage or history of. Screenin:13 Abuse screen: Denies threats or abuse. Nutritional screening: No deficits noted. vg1 Tuberculosis screening: No symptoms or risk factors identified. Fall Risk No fall in past 12 months (0 pts). No secondary diagnosis (0 pts). IV access (20 points). Ambulatory Aid- None/Bed Rest/Nurse Assist (0 pts). Gait- Normal/Bed Rest/Wheelchair (0 pts) Mental Status- Oriented to own ability (0 pts). Total Dunaway Fall Scale indicates No Risk (0-24 pts). Assessment: 17:13 Reassessment: SEE TRIAGE. vg1 18:15 Reassessment: Patient appears in no apparent distress at this time. Patient and/or vg1 family updated on plan of care and expected duration. Pain level reassessed. Patient is alert, oriented x 3, equal unlabored respirations, skin warm/dry/pink. rates vaginal pain 3/10 Patient states feeling better. Vital Signs: 16:45 BP 131 / 80; Pulse 130; Resp 16; Temp 100.8; Pulse Ox 99% on R/A; Weight 98.88 kg; vg1 Height 5 ft. 4 in. (162.56 cm); Pain 7/10; 17:30 BP 120 / 72; Pulse 120; Resp 20; Pulse Ox 97% on R/A; vg1 18:00 BP 112 / 68; Pulse 119; Resp 16; Pulse Ox 97% on R/A; vg1 18:30 BP 122 / 68; Pulse 105; Resp 15; Temp 99.5(O); Pulse Ox 99% on R/A; vg1 16:45 Body Mass Index 37.42 (98.88 kg, 162.56 cm) vg1 ED Course: 16:50 Arm band placed on. vg1 17:02 Patient arrived in ED. vg1 17:03 José Miguel Yanes NP is PHCP. pm1 17:03 Darrian Henson MD is Attending Physician. pm1 17:09 Triage completed. vg1 17:13 Patient has correct armband on for positive identification. Placed in gown. Bed in low vg1 position. Call light in reach. Side rails up X2. 17:15 Mary Hernandez, RN is Primary Nurse. vg1 19:13 No provider procedures requiring assistance completed. IV discontinued, intact, vg1 bleeding controlled, No redness/swelling at site. Pressure dressing applied. Administered Medications: 17:30 Drug: NS 0.9% 1000 ml Route: IV; Rate: 1000 ml; Site: right antecubital; vg1 19:14 Follow up: IV Status: Completed infusion; IV Intake: 1000ml vg1 17:35 Drug: Zofran (Ondansetron) 4 mg Route: IVP; Site: right antecubital; vg1 18:25 Follow up: Response: No adverse reaction; Marked relief of symptoms vg1 17:37 Drug: morphine 4 mg Route: IVP; Site: right antecubital; vg1 18:25 Follow up: Response: No adverse reaction; Marked relief of symptoms vg1 17:38 Drug: Clindamycin 900 mg Route: IVPB; Infused Over: 30 mins; Site: right antecubital; vg1 18:10 Follow up: IV Status: Completed infusion; IV Intake: 50ml vg1 Intake: 18:10 IV: 50ml; Total: 50ml. vg1 19:14 IV: 1000ml; Total: 1050ml. vg1 Outcome: 18:49 Discharge ordered by MD. pm1 19:14 Discharged to home ambulatory. vg1 19:14 Condition: good 19:14 Discharge instructions given to patient, Instructed on discharge instructions, follow up and referral plans. medication usage, Demonstrated understanding of instructions, follow-up care, medications, Prescriptions given X 2. 19:14 Patient left the ED. vg1 Signatures: José Miguel Yanes NP PRODUCTION ADMINISTRATOR pm1 Mary Hernandez, RN RN vg1 Corrections: (The following items were deleted from the chart) 18:46 18:00 BP 112 / 68; Pulse 119bpm; Resp 16bpm; Pulse Ox 97% RA; vg1 vg1 18:47 18:00 BP 112 / 68; Pulse 119bpm; Resp 16bpm; Pulse Ox 97% RA; Temp 99.5F Oral; vg1 vg1
--- NOTE | 2021-09-19 18:50 | EDPHYS ---
Physician Documentation [facility] Name: Faiza Brown Age: 41 yrs Sex: Female : 1980 Arrival Date: 09/19/2021 Time: 17:02 Bed 19 Private MD: ED Physician Darrian Henson HPI: 09/19 17:13 This 41 yrs old Female presents to ER via EMS with complaints of Vaginal Pain. pm1 17:13 The patient presents with Groin pain post incision and drainage of cutaneous abscess. pm1 Onset: The symptoms/episode began/occurred today. Modifying factors: The symptoms are alleviated by nothing, the symptoms are aggravated by Taking antibiotic by mouth without food in her stomach. Associated signs and symptoms: Pertinent positives: nausea, vomiting. Severity of symptoms: in the emergency department the symptoms are actually worse. The patient has not experienced similar symptoms in the past. The patient has been recently seen by a physician: Patient seen by wax bleacher prior to arrival for incision and drainage of a cutaneous abscess in the groin. Patient reports that she felt nauseous and had some vomiting with dizziness due to taking clindamycin by mouth. Patient also is complaining of pain to the area and does not have any pain medications at home. Pharmacy has been on backorder and will have them available tomorrow. TUBE MOUNTER: 16:50 LMP 09/18/2021 vg1 Historical: - Allergies: 17:09 Latex, Natural Rubber; vg1 - Home Meds: 17:09 Lisinopril Oral [Active]; vg1 - PMHx: 17:09 Hypertension; Myocardial infarction; vg1 - Immunization history:: Client reports receiving the 2nd dose of the Covid vaccine. - Social history:: Smoking status: Patient denies any tobacco usage or history of. ROS: 17:13 Positive for Pain to groin post incision drainage. pm1 17:13 Constitutional: Negative for fever, chills, and weight loss, Cardiovascular: Negative for chest pain, palpitations, and edema, Respiratory: Negative for shortness of breath, cough, wheezing, and pleuritic chest pain, Back: Negative for injury and pain. 17:13 MS/Extremity: Negative for injury and deformity, Skin: Negative for injury, rash, and discoloration, Neuro: Negative for headache, weakness, numbness, tingling, and seizure. 17:13 Abdomen/GI: Positive for nausea and vomiting, Negative for abdominal pain, diarrhea. 17:13 : Negative for urinary symptoms, pelvic pain, flank pain. 17:13 All other systems are negative. Exam: 17:13 Constitutional: This is a well developed, well nourished patient who is awake, alert, pm1 and in no acute distress. Head/Face: Normocephalic, atraumatic. 17:13 Back: No spinal tenderness. No costovertebral tenderness. Full range of motion. Skin: Warm, dry with normal turgor. Normal color with no rashes, no lesions, and no evidence of cellulitis. MS/ Extremity: Pulses equal, no cyanosis. Neurovascular intact. Full, normal range of motion. 17:13 Eyes: Exam is negative for acute changes, Periorbital structures: no acute changes, Extraocular movements: no acute changes. 17:13 ENT: Exam is negative for acute changes, Mouth: no acute changes, Lips: normal, moist, Oral mucosa: normal, pink and intact, moist. 17:13 Cardiovascular: Rate: tachycardic, Rhythm: regular, Pulses: no pulse deficits are appreciated, Heart sounds: normal, normal S1and S2. 17:13 Respiratory: Exam negative for acute changes, respiratory distress, shortness of breath, Breath sounds: are clear throughout. 17:13 Abdomen/GI: Inspection: abdomen appears normal, Palpation: abdomen is soft and non-tender, in all quadrants. 17:13 : Pelvic Exam: External exam: no appreciated Bartholin's cyst, no erythema, Incision and drainage to cutaneous abscess to the left lower groin present. No fluctuance, drainage, or surrounding cellulitis present.. 17:13 Neuro: Exam negative for acute changes, Orientation: is normal, Motor: is normal, moves all fours. Vital Signs: 16:45 BP 131 / 80; Pulse 130; Resp 16; Temp 100.8; Pulse Ox 99% on R/A; Weight 98.88 kg; vg1 Height 5 ft. 4 in. (162.56 cm); Pain 7/10; 17:30 BP 120 / 72; Pulse 120; Resp 20; Pulse Ox 97% on R/A; vg1 18:00 BP 112 / 68; Pulse 119; Resp 16; Pulse Ox 97% on R/A; vg1 18:30 BP 122 / 68; Pulse 105; Resp 15; Temp 99.5(O); Pulse Ox 99% on R/A; vg1 16:45 Body Mass Index 37.42 (98.88 kg, 162.56 cm) vg1 MDM: 17:03 Patient medically screened. pm1 18:45 Data reviewed: vital signs. Data interpreted: Pulse oximetry: on room air is 97 %. pm1 Interpretation: normal. Counseling: I had a detailed discussion with the patient and/or guardian regarding: the historical points, exam findings, and any diagnostic results supporting the discharge/admit diagnosis, the need for outpatient follow up, an OB/Gyne specialist, to return to the emergency department if symptoms worsen or persist or if there are any questions or concerns that arise at home. 09/19 17:13 Order name: IV Saline Lock; Complete Time: 17:39 pm1 Administered Medications: 17:30 Drug: NS 0.9% 1000 ml Route: IV; Rate: 1000 ml; Site: right antecubital; vg1 19:14 Follow up: IV Status: Completed infusion; IV Intake: 1000ml vg1 17:35 Drug: Zofran (Ondansetron) 4 mg Route: IVP; Site: right antecubital; vg1 18:25 Follow up: Response: No adverse reaction; Marked relief of symptoms vg1 17:37 Drug: morphine 4 mg Route: IVP; Site: right antecubital; vg1 18:25 Follow up: Response: No adverse reaction; Marked relief of symptoms vg1 17:38 Drug: Clindamycin 900 mg Route: IVPB; Infused Over: 30 mins; Site: right antecubital; vg1 18:10 Follow up: IV Status: Completed infusion; IV Intake: 50ml vg1 Disposition Summary: 09/19/21 18:49 Discharge Ordered Location: Home pm1 Problem: new pm1 Symptoms: have improved pm1 Condition: Stable pm1 Diagnosis - Vomiting - side effect to clindamycin pm1 - Cutaneous abscess of groin pm1 Followup: pm1 - With: Emergency Department - When: As needed - Reason: Worsening of condition Followup: pm1 - With: Private Physician - When: 2 - 3 days - Reason: Recheck today's complaints, Continuance of care, Re-evaluation by your physician Discharge Instructions: - Discharge Summary Sheet pm1 - Nausea and Vomiting, Adult pm1 - Incision and Drainage, Care After pm1 Forms: - Medication Reconciliation Form pm1 - Thank You Letter pm1 - Antibiotic Education pm1 - Prescription Opioid Use pm1 Prescriptions: - ondansetron 4 mg Oral tablet,disintegrating - place 1 tablet by TRANSLINGUAL route every 8 hours As needed; 12 tablet; pm1 Refills: 0, Product Selection Permitted - Tylenol-Codeine #3 300 mg-30 mg Oral - take 2 tablet by ORAL route every 6 hours As needed; 20 tablet; Refills: 0, pm1 Product Selection Permitted Addendum: 09/21/2021 18:39 Co-signature as Attending Physician, Darrian Henson MD I agree with the assessment m a2 and plan of care. Signatures: José Miguel Yanes, BED PLACEMENT COORDINATOR BED PLACEMENT COORDINATOR pm1 Darrian Henson MD MD ma2 Mary Hernandez, RN RN vg1
[2021-09-19 22:17] VITALS: BP 122/68; TEMP 99.5; O2SAT 99
== END 2021-09-19 19:14 | disposition home or self-care (01) ==
LOC: ER 16:54
DX: R11.10 Vomiting, unspecified (principal); T36.8X5A Adverse effect of other systemic antibiotics, initial encounter; L02.214 Cutaneous abscess of groin; I10 Essential (primary) hypertension; I25.2 Old myocardial infarction; Z91.040 Latex allergy status; Z91.048 Other nonmedicinal substance allergy status
CPT/HCPCS: 96365; 96361; 96375; 99283; J7030; J2405

== ENCOUNTER 2024-10-21 05:20 | Observation (INO) | payer OTHER ==
--- OUTSIDE RECORDS SUMMARY | 2024-10-21 05:31 | XMS REPORT | Continuity of Care Document ---
Author Name Unknown Address [address] [facility] [address] [place] [address] Organization [facility] [place] Address [address] [facility] [address] [place] [address] Care Team Providers Care Skip Hoist Operator Name Role Phone BUCK DUBOSE Primary Care Physician Unavailab Buck López Attending Clinician [phone] Lab, Ang - Db Attending Clinician Unavailable BUCK DUBOSE Attending Clinician Unavailable Doctor Unassigned, [place] Attending Clinician U keithailYaquelin Heath Attending Clinician Unavailable Yaquelin ELIAS Attending Clinician Unavailable Yaquelin Mathis Attending Clinician [phone] MANFRED NAVAS Attending Clinician Unavailable MANFRED NAVAS Attending Clinician Unavailable NATALY LAGUNA Attending Clinician Unavailable ZHANNA WALTERS Attending Clinician Unavailable ZHANNA WALTERS Attending Clinician Unavailable Doctor Unassigned, [place] Attending Clinician U navailPARK Quinones Attending Clinician Unavailable Park Clark PA-C Attending Clinician [phone] Sourav Ortiz MD Attending Clinician [phone] SOURAV ORTIZ Attending Clinician Unavail able SOURAV ORTIZ Attending Clinician Unavail able Buck Mortensen Attending Clinician [phone] AMIE BAUTISTA Attending Clinician Unavailable Amie Bautista MD Attending Clinician [phone] KHUSHBU ARAUZ Attending Clinician Unavailable Khushbu Pérez Attending Clinician [phone] Lab, Ang - Db Attending Clinician Unavailable MAMADOU JOAQUIN Attending Clinician Unavailable Ben MOORE, Kat Attending Clinician [phone] Alberto JEFFERSON, Vani Attending Clinician UnavailDAJA Dodge Attending Clinician Perla abhishek Shah MD, Daja Macedo Attending Clinician Rolly Perez MD Attending Clinician [phone] Vincstefani SUPERVISOR FRONT, Shinta Attending Clinician [phone] JORI, REAL Attending Clinician Unavailable Unknown, Attending Attending Clinician Unavailab MAUDE Schreiber Attending Clinician Unavailable Maude Staton Attending Clinician [phone] MEHRAN BERG Attending Clinician UnavailMEHRAN Flores Attending Clinician Unavailkim Masterson MD, Bandar Alvarez Attending Clinician + [phone] TOMÁS ISABEL Attending Clinician Unavailable Chalo SUPERVISOR FRONT, Tomás Attending Clinician [phone] LISSETTE NARAYANAN Attending Clinician Unavailable BANDAR MASTERSON Attending Clinician Unavaila Nick Toney MD Attending Clinician [phone] Ramin Terrazas DO Attending Clinician [phone] Alisa Ridley DO Attending Clinician [phone] EBPARISH PALACIOS Attending Clinician Unavailable Nurse, [facility] Attending Clinician Unava ilable Ebrahim Parish RUSSO Attending Clinician [phone] Camille Saucedo NP Attending Clinician [phone] Provider, [facility] Attending Clinician Un available Len Portillo Attending Clinician [phone] LEN UGARTE Attending Clinician Unavailable Kenzie MOORE, Zana Attending Clinician [phone] Nurse, Beverly Vigil Attending Clinician Unavailable DUNG BARBOSA Attending Clinician Unavailable [facility] Attending Clinician Unav ailable Kelly Gastelum Attending Clinician [phone] Nurse, Adc Fam Pob I Attending Clinician Unavail able Yaquelin ELIAS Admitting Clinician Unavailable PARK CLARK Admitting Clinician Unavailable BUCK DUBOSE Admitting Clinician Unavailable MANFRED NAVAS Admitting Clinician Unavailable Yaquelin ELIAS Admitting Clinician Unavailable TOMÁS ISABEL Admitting Clinician Unavailable BANDAR MSATERSON Admitting Clinician Unavaila ble Payers Payer Name Policy Type Policy Number Effective Date Expirati on Date Source [facility] [id number] 2016 00:00:00 [employer] [facility] [id number] 2024 00:00:00 Problems Condition Name Condition Details Condition Category Status Onset Date Resolution Date Last Treatment Date Treating Clinician Comments Source Acute viral conjunctiv itis of both eyes Acute viral conjunctiv itis of both eyes Disease Active 11-14 00:00: 00 [facility] Upper respirator y tract infection, unspecifie d type Upper respirator y tract infection, unspecifie d type Disease Active 11-14 00:00: 00 [facility] Vulval cellulitis Vulval cellulitis Disease Active 09-19 00:00: 00 [facility] BMI 40.0-44.9, adult BMI 40.0-44.9, adult Disease Active 09-19 00:00: 00 [facility] Hypertensi ve urgency Hypertensi ve urgency Disease Active 09-22 00:00: 00 [facility] SOB (shortness of breath) SOB (shortness of breath) Disease Active 09-22 00:00: 00 [facility] Cough Cough Disease Active 09-22 00:00: 00 [facility] Congestion of nasal sinus Congestion of nasal sinus Disease Active 22 00:00: 00 [facility] Diarrhea, unspecifie d type Diarrhea, unspecifie d type Disease Active 22 00:00: 00 [facility] Herpes simplex infection Herpes simplex infection Disease Active 0 2-07 00:00: 00 [facility] Hepatomega ly Hepatomega ly Disease Active 2018-06 2-13 00:00: 00 [facility] Need for hepatitis B vaccinatio n Need for hepatitis B vaccinatio n Disease Active 2018-06 00:00: 00 [facility] Menorrhagi a with regular cycle Menorrhagi a with regular cycle Disease Active 2018-06 00:00: 00 [facility] Iron deficiency anemia due to chronic blood loss Iron deficiency anemia due to chronic blood loss Disease Active 2018-06 00:00: 00 [facility] Thrombocyt osis Thrombocyt osis Disease Active 2018-06 00:00: 00 [facility] Arthralgia of multiple joints Arthralgia of multiple joints Disease Active 2018-06 00:00: 00 [facility] Elevated ALT measuremen t Elevated ALT measuremen t Disease Active 2018-06 00:00: 00 [facility] Mixed dyslipidem ia Mixed dyslipidem ia Disease Active 2018-06 00:00: 00 [facility] Prediabete s Prediabete s Disease Active 2018-06 00:00: 00 [facility] Metabolic syndrome Metabolic syndrome Disease Active 2018-06 00:00: 00 [facility] Obesity (BMI 30-39.9) Obesity (BMI 30-39.9) Disease Active 2018-06 00:00: 00 [facility] Chronic depression Chronic depression Disease Active 2018-06 00:00: 00 [facility] Hair loss Hair loss Disease Active 2018-06 00:00: 00 [facility] Essential hypertensi on Essential hypertensi on Disease Active 11-11 00:00: 00 [facility] Fatty liver Fatty liver Disease Active [facility] Irregular menstrual cycle Irregular menstrual cycle Disease Resolve d 11-11 00:00: 00 2019-04-27 00:00:00 2019-04-27 15:02:04 [facility] Situationa l depression Situationa l depression Disease Resolve d 09-24 00:00: 00 2019-04-12 00:00:00 2019-04-12 19:19:50 [facility] Allergies, Adverse Reactions, Alerts Allergy Name Allergy Type Status Severity Reaction(s) Onset Date Inactive Date Treating Clinician Comments Source Fish Oil Propensi ty to adverse reaction s Active Hives 06-04 00:00: 00 [facility] FISH OIL DRUG INGREDI Active Hives 06-04 00:00: 00 [facility] LOSARTAN DRUG INGREDI Active Swelling 2018-06 00:00: 00 [facility] Losartan Propensi ty to adverse reaction s Active Swelling 2018-06 00:00: 00 [facility] Latex Propensi ty to adverse reaction s Active Hives 2018-06 00:00: 00 [facility] LATEX DRUG INGREDI Active Hives 2018-06 00:00: 00 [facility] FLUOXETI NE HCL DRUG INGREDI Active Rash 01-16 00:00: 00 [facility] Fluoxeti ne Hcl Propensi ty to adverse reaction s Active Rash 01-16 00:00: 00 [facility] Social History Social Habit Start Date Stop Date Quantity Comments Source Gender identity [facility] History SDOH Alcohol Frequency [facility] [place] [place] History SDOH Alcohol Std Drinks [facility] History SDOH Alcohol Binge [facility] [place] [place] Alcoholic beverage intake 2024-09-17 00:00:00 2024-09-17 00:00:00 Ex-drinker (finding) [facility] [place] [place] History of Social function 2024-01-30 00:00:00 2024-01-30 00:00:[address] [facility] [place] [place] Alcohol intake 2023-03-11 00:00:00 2023-03-11 00:00:00 Ex-drinker (finding) [facility] [place] [place] Exposure to SARS-CoV-2 (event) 2022-08-11 00:00:00 2022-08-21 10:36:[address] [facility] [place] [place] Tobacco use and exposure 2022-05-03 00:00:00 2022-05-03 00:00:00 Smokeless tobacco non-user [facility] [place] [place] Alcohol Comment 2013-11-11 00:00:00 2013-11-11 00:00:[address] [facility] [place] [place] Sex assigned at 1980 00:00:00 1980 00:00:[address] [facility] [place] [place] Smoking Status Start Date Stop Date Source Never smoked tobacco [facility] Medications Ordered Medication Name Filled Medication Name Start Date Stop Date Current Medication? Ordering Clinician Indication Dosage Frequency Signature (SIG) Comments Components Source promethazin e-dextromet horphan 6.25-15 mg/5 mL syrup 09-17 00:00: 00 Yes [id number] 5mL Take 5 mL by mouth 4 (four) times daily as needed for Cough. [facility] amoxicillin -pot clavulanate 500-125 mg tablet 09-17 00:00: 00 09-25 04:59 :00 Yes [id number] 500mg Take 1 tablet by mouth in the morning and 1 tablet at noon and 1 tablet in the evening. Do all this for [address] [facility] ketorolac (TORADOL) injection 15 mg 02-21 04:45: 00 02-21 04:05 :00 No 15mg 15 mg, Slow IV Push, ONCE, 1 dose, On Sat02/21/24 at 2345, ROBI [facility] NaCl 0.9% (NS) bolus infusion 1,000 mL 02-21 04:45: 00 02-21 04:11 :01 No 1000mL at 999 mL/hr, 1,000 mL, IV Infusion, ONCE, 1 dose, On Sat02/21/24 at 2345, STAT [facility] diphenhydrA MINE (BENADRYL) injection 25 mg 02-21 04:45: 00 02-21 04:04 :00 No 25mg 25 mg, Slow IV Push, ONCE, 1 dose, On Sat02/21/24 at 2345, STAT [facility] metoclopram beth HCl (REGLAN) injection 10 mg 02-21 04:45: 00 02-21 04:04 :00 No 10mg 10 mg, Slow IV Push, ONCE, 1 dose, On Sat02/21/24 at 2345, ROBI [facility] hydralAZINE (APRESOLINE ) injection 10 mg 02-21 03:15: 00 02-21 03:15 :00 No 10mg 10 mg, Slow IV Push, ONCE, 1 dose, On Sat02/21/24 at 2215, ROBI [facility] aspirin chewable tablet 324 mg 02-21 02:45: 00 02-21 02:23 :00 No 324mg 324 mg, Oral, ONCE, 1 dose, On Sat02/21/24 at 2145, Routine [facility] lisinopriL- hydrochloro thiazide 10-12.5 mg per tablet 01-29 00:00: 00 Yes [id number] 1{tbl} Take 1 tablet by mouth in the morning. [facility] promethazin e-dextromet horphan 6.25-15 mg/5 mL syrup 01-29 00:00: 00 09-17 00:00 :00 No [id number] 5mL Take 5 mL by mouth 4 (four) times daily as needed for Cough. [facility] azithromyci n 250 mg tablet 01-29 00:00: 00 02-05 04:59 :00 No [id number] 250mg Take 1 tablet by mouth in the morning for 6 days. Take 500 mg day 1, then 250 mg days [address] [facility] iopamidol (ISOVUE 370-500 mL) injection 80 mL 01-31 13:58: 00 01-31 14:03 :00 No [id number] 80mL 80 mL, Intravenou s, ONCE, 1 dose, On [place] 01/31/23 at 0915, Routine [facility] lidocaine 1% (PF) (XYLOCAINE) injection 01-18 14:47: 00 Yes PRN, Starting on Sat01/18/23 at 0947, Until Discontinu ed, Routine, Intra-op [facility] ezetimibe (ZETIA) 10 mg tablet 12-21 00:00: 00 Yes 10mg Take 1 tablet by mouth in the morning. [facility] semaglutide , weight loss, (WEGOVY) 0.25 mg/0.5 mL PnIj SC injection 12-13 00:00: 00 Yes [id number] .25mg inject 0.25 mg under the skin weekly. Prediabete s and obesity [facility] neomycin-po lymyxin-dex amethasone 3.5mg/mL-10 ,000 unit/mL-0.1 % ophthalmic suspension drops 11-14 00:00: 00 01-29 00:00 :00 No [id number] 1[drp] Place 1 Drop in both eyes 4 (four) times daily. [facility] felodipine 10 mg 24 hr tablet 11-05 00:00: 00 Yes [id number] 10mg Take 1 tablet by mouth in the morning. [facility] buPROPion SR (WELLBUTRIN SR) 150 mg SR tablet 11-05 00:00: 00 Yes [id number] 150mg Take 1 tablet by mouth in the morning and 1 tablet in the evening. [facility] propranoloL 20 mg tablet 11-05 00:00: 00 Yes [id number] 20mg Take 1 tablet by mouth every morning and evening. [facility] topiramate (TOPAMAX) 50 mg tablet 11-05 00:00: 00 Yes [id number] 50mg Take 1 tablet by mouth in the morning. [facility] lisinopriL- hydrochloro thiazide 10-12.5 mg per tablet 11-05 00:00: 00 01-29 00:00 :00 No [id number] 1{tbl} Take 1 tablet by mouth in the morning. [facility] aluminum chloride (DRYSOL) 20 % external solution 11-05 00:00: 00 01-29 00:00 :00 No [id number] Apply to area(s) at bedtime. [facility] semaglutide , weight loss, (WEGOVY) 0.25 mg/0.5 mL PnIj SC injection 11-05 00:00: 00 12-13 00:00 :00 No [id number] .25mg inject 0.25 mg under the skin weekly. Prediabete s and obesity [facility] felodipine 10 mg 24 hr tablet 10-26 00:00: 00 11-05 00:00 :00 No [id number] 10mg Take 1 tablet by mouth in the morning. [facility] buPROPion SR (WELLBUTRIN SR) 150 mg SR tablet 10-26 00:00: 00 11-05 00:00 :00 No [id number] 150mg Take 1 tablet by mouth in the morning and 1 tablet in the evening. [facility] lisinopriL- hydrochloro thiazide 10-12.5 mg per tablet 10-26 00:00: 00 11-05 00:00 :00 No [id number] 1{tbl} Take 1 tablet by mouth in the morning. [facility] ergocalcife rol, vitamin d2, 1,250 mcg (50,000 unit) capsule 10-21 00:00: 00 Yes [id number] 17258N Take 1 capsule by mouth weekly. [facility] propranoloL 20 mg tablet 10-15 00:00: 00 11-05 00:00 :00 No [id number] 20mg Take 1 tablet by mouth every morning and evening. [facility] PROPRANOLOL 20 mg tablet 09-13 00:00: 00 Yes [id number] 20mg TAKE 1 TABLET BY MOUTH EVERY MORNING AND EVENING. [facility] fluticasone propionate 50 mcg/actuati on nasal spray 08-21 00:00: 00 Yes [id number] 2{spray } Use 2 Sprays in each nostril in the morning. [facility] acetaminoph en-caff-but albital per capsule 08-21 00:00: 00 01-29 00:00 :00 No [id number] 1{capsu le} Take 1 capsule by mouth every 4 (four) hours as needed for Pain. [facility] amoxicillin -clavulanat e (AUGMENTIN) 875-125 mg per tablet 08-21 00:00: 00 09-01 04:59 :00 No [id number] 1{tbl} Take 1 tablet by mouth in the morning and 1 tablet in the evening. Do all this for [address] [facility] propranoloL 20 mg tablet 08-14 00:00: 00 09-13 00:00 :00 No [id number] 20mg Take 1 tablet by mouth every morning and evening. [facility] PROPRANOLOL 20 mg tablet 07-20 00:00: 00 08-14 00:00 :00 No [id number] TAKE 1 TABLET BY MOUTH IN THE MORNING AND IN THE EVENING [facility] propranoloL 20 mg tablet 06-25 00:00: 00 Yes [id number] 20mg Take 1 tablet by mouth in the morning and 1 tablet in the evening. [facility] ZETIA 10 mg tablet 06-20 00:00: 00 12-21 00:00 :00 No 10mg Take 1 tablet by mouth in the morning. [facility] propranoloL 20 mg tablet 2021-06 00:00: 00 06-25 00:00 :00 No [id number] 20mg Take 1 tablet by mouth in the morning and 1 tablet in the evening. [facility] ergocalcife rol, vitamin d2, 1,250 mcg (50,000 unit) capsule 2021-06 00:00: 00 10-20 00:00 :00 No [id number] Take 1 capsule by mouth weekly. [facility] ezetimibe 10 mg tablet 2021-06 00:00: 00 06-20 00:00 :00 No [id number] 10mg Take 1 tablet by mouth in the morning. [facility] benazepril- hydrochlort hiazide 10-12.5 mg per tablet 2021-06 13:38: 13 05-03 00:00 :00 No 1{tbl} Take 1 tablet by mouth in the morning. [facility] benzonatate 200 mg capsule 2021-06 00:00: 00 01-29 00:00 :00 No [id number] 200mg Take 1 capsule by mouth 3 (three) times daily as needed for Cough. [facility] lisinopriL- hydrochloro thiazide 10-12.5 mg per tablet 2021-06 00:00: 00 10-26 00:00 :00 No [id number] 1{tbl} Take 1 tablet by mouth in the morning. [facility] buPROPion SR (WELLBUTRIN SR) 150 mg SR tablet 2021-06 00:00: 00 10-26 00:00 :00 No [id number] 150mg Take 1 tablet by mouth in the morning and 1 tablet in the evening. [facility] felodipine 10 mg 24 hr tablet 2021-06 00:00: 00 10-26 00:00 :00 No [id number] 10mg Take 1 tablet by mouth in the morning. [facility] bacitracin- polymyxin B 500-10,000 unit/gram topical ointment 2021-06 00:00: 00 08-21 00:00 :00 No [id number] Apply to area(s) 2 (two) times daily. [facility] albuterol 90 mcg/actuati on inhaler 2021-06 00:00: 00 06-01 00:00 :00 No [id number] 2{puff} Inhale 2 Puffs every 4 (four) hours as needed for Wheezing or Shortness of Breath. [facility] amoxicillin -clavulanat e (AUGMENTIN) 875-125 mg per tablet 2021-06 00:00: 00 05-12 05:59 :00 No 1{tbl} Take 1 tablet by mouth in the morning and 1 tablet in the evening. Do all this for [address] [facility] predniSONE 10 mg tablet 2021-06 00:00: 05-07 05:59 :00 No [id number] 30mg Take 3 tablets by mouth in the morning for [address] [facility] azithromyci n (ZITHROMAX Z-AMANDA) 250 mg tablet 2021-06 00:00: 00 05-07 05:59 :00 No [id number] 250mg Take 1 tablet by mouth in the morning for [address] [facility] dextrometho rphan-guaif enesin (ROBITUSSIN DM) 10-100 mg/5 mL solution 10 mL 2021-06 09:30: 00 04-29 08:20 :00 No 10mL 10 mL, Oral, ONCE, 1 dose, On 04/29/22 at 0330, Routine [facility] acetaminoph en-caff-but albital per capsule 2021-06 00:00: 00 08-21 00:00 :00 No [id number] 1{capsu le} Take 1 capsule by mouth every 4 (four) hours as needed for Pain. [facility] sulfamethox azole-trime thoprim (BACTRIM DS) 800-160 mg per tablet 02-01 00:00: 00 05-03 00:00 :00 No [id number] 1{tbl} Take 1 tablet by mouth in the morning and 1 tablet in the evening. [facility] mupirocin 2 % ointment 02-01 00:00: 00 05-03 00:00 :00 No [id number] Apply to area(s) 3 (three) times daily. [facility] ibuprofen 600 mg tablet 8-07 00:00: 00 01-29 00:00 :00 No [id number] 600mg Take 1 tablet by mouth every 6 (six) hours as needed for Pain (scale 4-6). [facility] ondansetron 4 mg disintegrat ing tablet 4-19 00:00: 00 08-21 00:00 :[address] [facility] acetaminoph en-codeine 300-30 mg tablet 4-19 00:00: 00 04-29 00:00 :00 No [facility] FLUTICASONE PROPIONATE 50 mcg/actuati on nasal spray 07-14 00:00: 00 08-21 00:00 :00 No [id number] SPRAY 2 SPRAYS INTO EACH NOSTRIL EVERY DAY [facility] lisinopriL- hydrochloro thiazide 10-12.5 mg per tablet 06-24 00:00: 00 05-03 00:00 :00 No [id number] 1{tbl} Take 1 tablet by mouth daily. [facility] felodipine 10 mg 24 hr tablet 06-24 00:00: 00 05-03 00:00 :00 No [id number] 10mg Take 1 tablet by mouth daily. [facility] nystatin 100,000 unit/gram powder 2020-06 00:00: 00 08-21 00:00 :00 No [id number] Apply to area(s) 2 (two) times daily. [facility] Butalbital- Acetaminoph en-Caff (FIORICET) 50-300-40 mg per capsule 10-12 00:00: 00 04-29 00:00 :00 No [id number] 1{capsu le} Take 1 capsule by mouth every 6 (six) hours as needed for Pain (scale 4-6). [facility] butalbital- acetaminoph en-caff 50-325-40 mg tablet 06-04 00:00: 00 04-29 00:00 :00 No [id number] 1{tbl} Take 1 tablet by mouth every 4 (four) hours as needed for Pain (scale 4-6). [facility] cyanocobala min 1,000 mcg/mL injection 2019-06 00:00: 00 04-13 00:00 :[address] [facility] BENAZEPRIL- HYDROCHLORT HIAZIDE 10-12.5 mg per tablet 2019-06 0-16 00:00: 06-22 00:00 :00 No [id number] TAKE 1 TABLET BY MOUTH EVERY DAY [facility] AMLODIPINE 10 mg tablet 9-29 00:00: 00 06-22 00:00 :00 No [id number] TAKE 1 TABLET BY MOUTH EVERY DAY [facility] LABETALOL 100 mg tablet 8-28 00:00: 04-13 00:00 :00 No [id number] TAKE 1 TABLET BY MOUTH TWICE A DAY [facility] penicillin v potassium 500 mg tablet 6-01 00:00: 04-13 00:00 :00 No [id number] 1000mg Take 2 tablets by mouth 2 (two) times daily. [facility] VENLAFAXINE XR 37.5 mg 24 hr capsule 5-26 00:00: 04-13 00:00 :00 No [id number] 37.5mg TAKE 1 CAPSULE BY MOUTH DAILY WITH BREAKFAST. [facility] fluticasone propionate 50 mcg/actuati on nasal spray 4-22 00:00: 04-13 00:00 :00 No [id number] 1{spray } Use 1 Loda in each nostril daily. [facility] mupirocin 2 % ointment 2-03 00:00: 00 04-13 00:00 :00 No [id number] Apply to area(s) 3 (three) times daily. [facility] ferrous fumarate-ir on polysacchar beth complex 162-115.2 (106) mg capsule 1-08 00:00: 00 04-13 00:00 :00 No [id number] 1{capsu le} Take 1 capsule by mouth daily with breakfast. [facility] Immunizations Ordered Immunization Name Filled Immunization Name Date Status Comments Source Influenza Virus Vaccine Quad IM, Preserv and ABX Free 6 MO-64 YRS 2021-04-13 00:00:[address] [facility] [place] [place] Influenza Virus Vaccine Quad IM, Preserv and ABX Free 6 MO-64 YRS 2021-04-13 00:00:[address] [facility] [place] [place] Influenza Virus Vaccine Quad IM, Preserv and ABX Free 6 MO-64 YRS 2021-04-13 00:00:[address] [facility] [place] [place] Influenza Virus Vaccine Quad IM, Preserv and ABX Free 6 MO-64 YRS 2021-04-13 00:00:[address] [facility] [place] [place] Influenza Virus Vaccine Quad IM, Preserv and ABX Free 6 MO-64 YRS 2021-04-13 00:00:[address] [facility] [place] [place] Influenza Virus Vaccine Quad IM, Preserv and ABX Free 6 MO-64 YRS 2021-04-13 00:00:[address] [facility] [place] [place] Influenza Virus Vaccine Quad IM, Preserv and ABX Free 6 MO-64 YRS 2021-04-13 00:00:[address] [facility] [place] [place] Influenza Virus Vaccine Quad IM, Preserv and ABX Free 6 MO-64 YRS 2021-04-13 00:00:[address] [facility] [place] [place] Influenza Virus Vaccine Quad IM, Preserv and ABX Free 6 MO-64 YRS 2021-04-13 00:00:[address] [facility] [place] Influenza Virus Vaccine Quad IM, Preserv and ABX Free 6 MO-64 YRS 2021-04-13 00:00:00 Completed [facility] [place], [place] Influenza Virus Vaccine Quad IM, Preserv and ABX Free 6 MO-64 YRS 2021-04-13 00:00:[address] [facility] [place] Influenza Virus Vaccine Quad IM, Preserv and ABX Free 6 MO-64 YRS (FLUCELVAX) 2021-04-13 00:00:[address] [facility] [place] Influenza Virus Vaccine Quad IM, Preserv and ABX Free 6 MO-64 YRS (FLUCELVAX) 2021-04-13 00:00:[address] [facility] [place] Influenza Virus Vaccine Quad IM, Preserv and ABX Free 6 MO-64 YRS (FLUCELVAX) 2021-04-13 00:00:[address] [facility] [place] Influenza Virus Vaccine Quad IM, Preserv and ABX Free 6 MO-64 YRS (FLUCELVAX) 2021-04-13 00:00:00 Completed Influenza Virus Vaccine Quad IM, Preserv and ABX Free 6 MO-64 YRS 2021-04-13 00:00:[address] [facility] [place] Influenza Virus Vaccine Quad IM, Preserv and ABX Free 6 MO-64 YRS 2021-04-13 00:00:[address] [facility] [place] Influenza Virus Vaccine Quad IM, Preserv and ABX Free 6 MO-64 YRS 2021-04-13 00:00:[address] [facility] [place] Influenza Virus Vaccine Quad IM, Preserv and ABX Free 6 MO-64 YRS 2021-04-13 00:00:[address] [facility] [place] Influenza Virus Vaccine Quad IM, Preserv and ABX Free 6 MO-64 YRS 2021-04-13 00:00:[address] [facility] [place] Influenza Virus Vaccine Quad IM, Preserv and ABX Free 6 MO-64 YRS 2021-04-13 00:00:[address] [facility] [place] Influenza Virus Vaccine Quad IM, Preserv and ABX Free 6 MO-64 YRS 2021-04-13 00:00:[address] [facility] [place] Influenza Virus Vaccine Quad IM, Preserv and ABX Free 6 MO-64 YRS 2021-04-13 00:00:[address] [facility] [place] Influenza Virus Vaccine Quad IM, Preserv and ABX Free 6 MO-64 YRS 2021-04-13 00:00:[address] [facility] [place] Influenza Virus Vaccine Quad IM, Preserv and ABX Free 6 MO-64 YRS 2021-04-13 00:00:[address] [facility] [place] Influenza Virus Vaccine Quad IM, Preserv and ABX Free 6 MO-64 YRS 2021-04-13 00:00:[address] [facility] [place] Influenza Virus Vaccine Quad IM, Preserv and ABX Free 6 MO-64 YRS 2021-04-13 00:00:[address] [facility] [place] Influenza Virus Vaccine Quad IM, Preserv and ABX Free 6 MO-64 YRS 2021-04-13 00:00:[address] [facility] [place] Influenza Virus Vaccine Quad IM, Preserv and ABX Free 6 MO-64 YRS 2021-04-13 00:00:[address] [facility] [place] Influenza Virus Vaccine Quad IM, Preserv and ABX Free 6 MO-64 YRS 2021-04-13 00:00:[address] [facility] [place] Influenza Virus Vaccine Quad IM, Preserv and ABX Free 6 MO-64 YRS 2021-04-13 00:00:[address] [facility] [place] Influenza Virus Vaccine Quad IM, Preserv and ABX Free 6 MO-64 YRS 2021-04-13 00:00:[address] [facility] [place] Influenza Virus Vaccine Quad IM, Preserv and ABX Free 6 MO-64 YRS 2021-04-13 00:00:[address] [facility] [place] Influenza Virus Vaccine Quad IM, Preserv and ABX Free 6 MO-64 YRS 2021-04-13 00:00:[address] [facility] [place] Influenza Virus Vaccine Quad IM, Preserv and ABX Free 6 MO-64 YRS 2021-04-13 00:00:[address] [facility] [place] Influenza Virus Vaccine Quad IM, Preserv and ABX Free 6 MO-64 YRS 2021-04-13 00:00:[address] [facility] [place] Influenza Virus Vaccine Quad IM, Preserv and ABX Free 6 MO-64 YRS 2021-04-13 00:00:[address] [facility] [place] Influenza Virus Vaccine Quad IM, Preserv and ABX Free 6 MO-64 YRS 2021-04-13 00:00:[address] [facility] [place] Influenza Virus Vaccine Quad IM, Preserv and ABX Free 6 MO-64 YRS 2021-04-13 00:00:[address] [facility] [place] Influenza Virus Vaccine Quad IM, Preserv and ABX Free 6 MO-64 YRS 2021-04-13 00:00:[address] [facility] [place] Influenza Virus Vaccine Quad IM, Preserv and ABX Free 6 MO-64 YRS 2021-04-13 00:00:[address] [facility] [place] Influenza Virus Vaccine Quad IM, Preserv and ABX Free 6 MO-64 YRS 2021-04-13 00:00:[address] [facility] [place] Influenza Virus Vaccine Quad IM, Preserv and ABX Free 6 MO-64 YRS 2021-04-13 00:00:[address] [facility] [place] Influenza Virus Vaccine Quad IM, Preserv and ABX Free 6 MO-64 YRS 2021-04-13 00:00:[address] [facility] [place] Influenza Virus Vaccine Quad IM, Preserv and ABX Free 6 MO-64 YRS 2021-04-13 00:00:[address] [facility] [place] Influenza Virus Vaccine Quad IM, Preserv and ABX Free 6 MO-64 YRS 2021-04-13 00:00:[address] [facility] [place] Influenza Virus Vaccine Quad IM, Preserv and ABX Free 6 MO-64 YRS 2021-04-13 00:00:[address] [facility] [place] Influenza Virus Vaccine Quad IM, Preserv and ABX Free 6 MO-64 YRS 2021-04-13 00:00:[address] [facility] [place] Influenza Virus Vaccine Quad IM, Preserv and ABX Free 6 MO-64 YRS 2021-04-13 00:00:[address] [facility] [place] Influenza Virus Vaccine Quad IM, Preserv and ABX Free 6 MO-64 YRS 2021-04-13 00:00:[address] [facility] [place] Influenza Virus Vaccine Quad IM, Preserv and ABX Free 6 MO-64 YRS 2021-04-13 00:00:[address] [facility] [place] Influenza Virus Vaccine Quad IM, Preserv and ABX Free 6 MO-64 YRS 2021-04-13 00:00:[address] [facility] [place] Influenza Virus Vaccine Quad IM, Preserv and ABX Free 6 MO-64 YRS 2021-04-13 00:00:[address] [facility] [place] Influenza Virus Vaccine Quad IM, Preserv and ABX Free 6 MO-64 YRS 2021-04-13 00:00:[address] [facility] [place] Influenza Virus Vaccine Quad IM, Preserv and ABX Free 6 MO-64 YRS 2021-04-13 00:00:[address] [facility] [place] Influenza Virus Vaccine Quad IM, Preserv and ABX Free 6 MO-64 YRS 2021-04-13 00:00:[address] [facility] [place] Influenza Virus Vaccine Quad IM, Preserv and ABX Free 6 MO-64 YRS 2021-04-13 00:00:[address] [facility] [place] Influenza Virus Vaccine Quad IM, Preserv and ABX Free 6 MO-64 YRS 2021-04-13 00:00:[address] [facility] [place] Influenza Virus Vaccine Quad IM, Preserv and ABX Free 6 MO-64 YRS 2021-04-13 00:00:[address] [facility] [place] Influenza Virus Vaccine Quad IM, Preserv and ABX Free 6 MO-64 YRS 2021-04-13 00:00:[address] [facility] [place] Influenza Virus Vaccine Quad IM, Preserv and ABX Free 6 MO-64 YRS 2021-04-13 00:00:[address] [facility] [place] SARS-COV-2 COVID-19 MODERNA VACCINE 2020-09-14 00:00:[address] [facility] [place] SARS-COV-2 COVID-19 MODERNA 12+ YRS VACCINE 2020-09-14 00:00:[address] [facility] [place] SARS-COV-2 COVID-19 MODERNA 12+ YRS VACCINE 2020-09-14 00:00:[address] [facility] [place] SARS-COV-2 COVID-19 MODERNA 12+ YRS VACCINE 2020-09-14 00:00:[address] [facility] [place] SARS-COV-2 COVID-19 MODERNA 12+ YRS VACCINE 2020-09-14 00:00:[address] [facility] [place] SARS-COV-2 COVID-19 MODERNA 12+ YRS VACCINE 2020-09-14 00:00:[address] [facility] [place] SARS-COV-2 COVID-19 MODERNA 12+ YRS VACCINE 2020-09-14 00:00:[address] [facility] [place] SARS-COV-2 COVID-19 MODERNA 12+ YRS VACCINE 2020-09-14 00:00:[address] [facility] [place] SARS-COV-2 COVID-19 MODERNA 12+ YRS VACCINE 2020-09-14 00:00:[address] [facility] [place] SARS-COV-2 COVID-19 MODERNA 12+ YRS VACCINE 2020-09-14 00:00:[address] [facility] [place] SARS-COV-2 COVID-19 MODERNA 12+ YRS VACCINE 2020-09-14 00:00:[address] [facility] [place] SARS-COV-2 COVID-19 MODERNA 12+ YRS VACCINE 2020-09-14 00:00:[address] [facility] [place] SARS-COV-2 COVID-19 MODERNA 12+ YRS VACCINE 2020-09-14 00:00:[address] [facility] [place] SARS-COV-2 COVID-19 MODERNA 12+ YRS VACCINE 2020-09-14 00:00:[address] [facility] [place] SARS-COV-2 COVID-19 MODERNA 12+ YRS VACCINE 2020-09-14 00:00:[address] [facility] [place] SARS-COV-2 COVID-19 MODERNA 12+ YRS VACCINE 2020-09-14 00:00:[address] [facility] [place] SARS-COV-2 COVID-19 MODERNA 12+ YRS VACCINE 2020-09-14 00:00:[address] [facility] [place] SARS-COV-2 COVID-19 MODERNA 12+ YRS VACCINE 2020-09-14 00:00:[address] [facility] [place] SARS-COV-2 COVID-19 MODERNA 12+ YRS VACCINE 2020-09-14 00:00:[address] [facility] [place] SARS-COV-2 COVID-19 MODERNA 12+ YRS VACCINE 2020-09-14 00:00:[address] [facility] [place] SARS-COV-2 COVID-19 MODERNA 12+ YRS VACCINE 2020-09-14 00:00:[address] [facility] [place] SARS-COV-2 COVID-19 MODERNA 12+ YRS VACCINE 2020-09-14 00:00:[address] [facility] [place] SARS-COV-2 COVID-19 MODERNA 12+ YRS VACCINE 2020-09-14 00:00:[address] [facility] [place] SARS-COV-2 COVID-19 MODERNA 12+ YRS VACCINE 2020-09-14 00:00:[address] [facility] [place] SARS-COV-2 COVID-19 MODERNA 12+ YRS VACCINE 2020-09-14 00:00:[address] [facility] [place] SARS-COV-2 COVID-19 MODERNA 12+ YRS VACCINE 2020-09-14 00:00:[address] [facility] [place] SARS-COV-2 COVID-19 MODERNA 12+ YRS VACCINE 2020-09-14 00:00:[address] [facility] [place] SARS-COV-2 COVID-19 MODERNA 12+ YRS VACCINE 2020-09-14 00:00:[address] [facility] [place] SARS-COV-2 COVID-19 MODERNA 12+ YRS VACCINE 2020-09-14 00:00:[address] [facility] [place] SARS-COV-2 COVID-19 MODERNA 12+ YRS VACCINE 2020-09-14 00:00:[address] [facility] [place] SARS-COV-2 COVID-19 MODERNA 12+ YRS VACCINE 2020-09-14 00:00:[address] [facility] [place] SARS-COV-2 COVID-19 MODERNA 12+ YRS VACCINE 2020-09-14 00:00:[address] [facility] [place] SARS-COV-2 COVID-19 MODERNA 12+ YRS VACCINE 2020-09-14 00:00:[address] [facility] [place] SARS-COV-2 COVID-19 MODERNA 12+ YRS VACCINE 2020-09-14 00:00:[address] [facility] [place] SARS-COV-2 COVID-19 MODERNA 12+ YRS VACCINE 2020-09-14 00:00:[address] [facility] [place] SARS-COV-2 COVID-19 MODERNA 12+ YRS VACCINE 2020-09-14 00:00:[address] [facility] [place] SARS-COV-2 COVID-19 MODERNA 12+ YRS VACCINE 2020-09-14 00:00:[address] [facility] [place] SARS-COV-2 COVID-19 MODERNA 12+ YRS VACCINE 2020-09-14 00:00:[address] [facility] [place] SARS-COV-2 COVID-19 MODERNA 12+ YRS VACCINE 2020-09-14 00:00:[address] [facility] [place] SARS-COV-2 COVID-19 MODERNA 12+ YRS VACCINE 2020-09-14 00:00:[address] [facility] [place] SARS-COV-2 COVID-19 MODERNA 12+ YRS VACCINE 2020-09-14 00:00:[address] [facility] [place] SARS-COV-2 COVID-19 MODERNA 12+ YRS VACCINE 2020-09-14 00:00:[address] [facility] [place] SARS-COV-2 COVID-19 MODERNA 12+ YRS VACCINE 2020-09-14 00:00:[address] [facility] [place] SARS-COV-2 COVID-19 MODERNA 12+ YRS VACCINE 2020-09-14 00:00:[address] [facility] [place] SARS-COV-2 COVID-19 MODERNA 12+ YRS VACCINE 2020-09-14 00:00:[address] [facility] [place] SARS-COV-2 COVID-19 MODERNA 12+ YRS VACCINE 2020-09-14 00:00:[address] [facility] [place] SARS-COV-2 COVID-19 MODERNA 12+ YRS VACCINE 2020-09-14 00:00:[address] [facility] [place] SARS-COV-2 COVID-19 MODERNA 12+ YRS VACCINE 2020-09-14 00:00:[address] [facility] [place] SARS-COV-2 COVID-19 MODERNA 12+ YRS VACCINE 2020-09-14 00:00:[address] [facility] [place] SARS-COV-2 COVID-19 MODERNA 12+ YRS VACCINE 2020-09-14 00:00:[address] [facility] [place] SARS-COV-2 COVID-19 MODERNA 12+ YRS VACCINE 2020-09-14 00:00:[address] [facility] [place] SARS-COV-2 COVID-19 MODERNA 12+ YRS VACCINE 2020-09-14 00:00:[address] [facility] [place] SARS-COV-2 COVID-19 MODERNA 12+ YRS VACCINE 2020-09-14 00:00:[address] [facility] [place] SARS-COV-2 COVID-19 MODERNA 12+ YRS VACCINE 2020-09-14 00:00:[address] [facility] [place] SARS-COV-2 COVID-19 MODERNA 12+ YRS VACCINE 2020-09-14 00:00:[address] [facility] [place] SARS-COV-2 COVID-19 MODERNA 12+ YRS VACCINE 2020-09-14 00:00:[address] [facility] [place] SARS-COV-2 COVID-19 MODERNA 12+ YRS VACCINE 2020-09-14 00:00:[address] [facility] [place] SARS-COV-2 COVID-19 MODERNA 12+ YRS VACCINE 2020-09-14 00:00:[address] [facility] [place] SARS-COV-2 COVID-19 MODERNA 12+ YRS VACCINE 2020-09-14 00:00:[address] [facility] [place] SARS-COV-2 COVID-19 MODERNA 12+ YRS VACCINE 2020-09-14 00:00:[address] [facility] [place] SARS-COV-2 COVID-19 MODERNA 12+ YRS VACCINE 2020-09-14 00:00:00 Completed SARS-COV-2 COVID-19 VACCINE - (MODERNA) 2020-09-09 00:00:[address] [facility] [place] SARS-COV-2 COVID-19 VACCINE - (MODERNA) 2020-09-09 00:00:[address] [facility] [place] SARS-COV-2 COVID-19 VACCINE - (MODERNA) 2020-09-09 00:00:[address] [facility] [place] SARS-COV-2 COVID-19 VACCINE - (MODERNA) 2020-09-09 00:00:[address] [facility] [place] SARS-COV-2 COVID-19 VACCINE - (MODERNA) 2020-09-09 00:00:[address] [facility] [place] SARS-COV-2 COVID-19 VACCINE - (MODERNA) 2020-09-09 00:00:[address] [facility] [place] SARS-COV-2 COVID-19 VACCINE - (MODERNA) 2020-09-09 00:00:[address] [facility] [place] SARS-COV-2 COVID-19 VACCINE - (MODERNA) 2020-09-09 00:00:[address] [facility] [place] SARS-COV-2 COVID-19 VACCINE - (MODERNA) 2020-09-09 00:00:[address] [facility] [place] SARS-COV-2 COVID-19 VACCINE - (MODERNA) 2020-09-09 00:00:[address] [facility] [place] SARS-COV-2 COVID-19 VACCINE - (MODERNA) 2020-09-09 00:00:[address] [facility] [place] SARS-COV-2 COVID-19 VACCINE - (MODERNA) 2020-09-09 00:00:[address] [facility] [place] SARS-COV-2 COVID-19 VACCINE - (MODERNA) 2020-09-09 00:00:[address] [facility] [place] SARS-COV-2 COVID-19 VACCINE - (MODERNA) 2020-09-09 00:00:[address] [facility] [place] SARS-COV-2 COVID-19 VACCINE - (MODERNA) 2020-09-09 00:00:[address] [facility] [place] SARS-COV-2 COVID-19 VACCINE - (MODERNA) 2020-09-09 00:00:[address] [facility] [place] SARS-COV-2 COVID-19 VACCINE - (MODERNA) 2020-09-09 00:00:[address] [facility] [place] SARS-COV-2 COVID-19 VACCINE - (MODERNA) 2020-09-09 00:00:[address] [facility] [place] SARS-COV-2 COVID-19 VACCINE - (MODERNA) 2020-09-09 00:00:[address] [facility] [place] SARS-COV-2 COVID-19 VACCINE - (MODERNA) 2020-09-09 00:00:[address] [facility] [place] SARS-COV-2 COVID-19 VACCINE - (MODERNA) 2020-09-09 00:00:[address] [facility] [place] SARS-COV-2 COVID-19 VACCINE - (MODERNA) 2020-09-09 00:00:[address] [facility] [place] SARS-COV-2 COVID-19 VACCINE - (MODERNA) 2020-09-09 00:00:[address] [facility] [place] SARS-COV-2 COVID-19 VACCINE - (MODERNA) 2020-09-09 00:00:[address] [facility] [place] SARS-COV-2 COVID-19 VACCINE - (MODERNA) 2020-09-09 00:00:[address] [facility] [place] SARS-COV-2 COVID-19 VACCINE - (MODERNA) 2020-09-09 00:00:[address] [facility] [place] SARS-COV-2 COVID-19 VACCINE - (MODERNA) 2020-09-09 00:00:[address] [facility] [place] SARS-COV-2 COVID-19 VACCINE - (MODERNA) 2020-09-09 00:00:[address] [facility] [place] SARS-COV-2 COVID-19 VACCINE - (MODERNA) 2020-09-09 00:00:[address] [facility] [place] SARS-COV-2 COVID-19 VACCINE - (MODERNA) 2020-09-09 00:00:[address] [facility] [place] SARS-COV-2 COVID-19 VACCINE - (MODERNA) 2020-09-09 00:00:[address] [facility] [place] SARS-COV-2 COVID-19 VACCINE - (MODERNA) 2020-09-09 00:00:[address] [facility] [place] SARS-COV-2 COVID-19 VACCINE - (MODERNA) 2020-09-09 00:00:[address] [facility] [place] SARS-COV-2 COVID-19 VACCINE - (MODERNA) 2020-09-09 00:00:[address] [facility] [place] SARS-COV-2 COVID-19 VACCINE - (MODERNA) 2020-09-09 00:00:[address] [facility] [place] SARS-COV-2 COVID-19 VACCINE - (MODERNA) 2020-09-09 00:00:[address] [facility] [place] SARS-COV-2 COVID-19 VACCINE - (MODERNA) 2020-09-09 00:00:[address] [facility] [place] SARS-COV-2 COVID-19 VACCINE - (MODERNA) 2020-09-09 00:00:[address] [facility] [place] SARS-COV-2 COVID-19 VACCINE - (MODERNA) 2020-09-09 00:00:[address] [facility] [place] SARS-COV-2 COVID-19 VACCINE - (MODERNA) 2020-09-09 00:00:[address] [facility] [place] SARS-COV-2 COVID-19 VACCINE - (MODERNA) 2020-09-09 00:00:[address] [facility] [place] SARS-COV-2 COVID-19 VACCINE - (MODERNA) 2020-09-09 00:00:[address] [facility] [place] SARS-COV-2 COVID-19 VACCINE - (MODERNA) 2020-09-09 00:00:[address] [facility] [place] SARS-COV-2 COVID-19 VACCINE - (MODERNA) 2020-09-09 00:00:[address] [facility] [place] SARS-COV-2 COVID-19 VACCINE - (MODERNA) 2020-09-09 00:00:[address] [facility] [place] SARS-COV-2 COVID-19 VACCINE - (MODERNA) 2020-09-09 00:00:[address] [facility] [place] SARS-COV-2 COVID-19 VACCINE - (MODERNA) 2020-09-09 00:00:[address] [facility] [place] SARS-COV-2 COVID-19 VACCINE - (MODERNA) 2020-09-09 00:00:[address] [facility] [place] SARS-COV-2 COVID-19 VACCINE - (MODERNA) 2020-09-09 00:00:[address] [facility] [place] SARS-COV-2 COVID-19 VACCINE - (MODERNA) 2020-09-09 00:00:[address] [facility] [place] SARS-COV-2 COVID-19 VACCINE - (MODERNA) 2020-09-09 00:00:[address] [facility] [place] SARS-COV-2 COVID-19 VACCINE - (MODERNA) 2020-09-09 00:00:[address] [facility] [place] SARS-COV-2 COVID-19 VACCINE - (MODERNA) 2020-09-09 00:00:[address] [facility] [place] SARS-COV-2 COVID-19 VACCINE - (MODERNA) 2020-09-09 00:00:[address] [facility] [place] SARS-COV-2 COVID-19 VACCINE - (MODERNA) 2020-09-09 00:00:[address] [facility] [place] SARS-COV-2 COVID-19 VACCINE - (MODERNA) 2020-09-09 00:00:00 Completed SARS-COV-2 COVID-19 MODERNA VACCINE 2020-08-17 00:00:[address] [facility] [place] SARS-COV-2 COVID-19 MODERNA 12+ YRS VACCINE 2020-08-17 00:00:[address] [facility] [place] SARS-COV-2 COVID-19 MODERNA 12+ YRS VACCINE 2020-08-17 00:00:[address] [facility] [place] SARS-COV-2 COVID-19 MODERNA 12+ YRS VACCINE 2020-08-17 00:00:[address] [facility] [place] SARS-COV-2 COVID-19 MODERNA 12+ YRS VACCINE 2020-08-17 00:00:[address] [facility] [place] SARS-COV-2 COVID-19 MODERNA 12+ YRS VACCINE 2020-08-17 00:00:[address] [facility] [place] SARS-COV-2 COVID-19 MODERNA 12+ YRS VACCINE 2020-08-17 00:00:[address] [facility] [place] SARS-COV-2 COVID-19 MODERNA 12+ YRS VACCINE 2020-08-17 00:00:[address] [facility] [place] SARS-COV-2 COVID-19 MODERNA 12+ YRS VACCINE 2020-08-17 00:00:[address] [facility] [place] SARS-COV-2 COVID-19 MODERNA 12+ YRS VACCINE 2020-08-17 00:00:[address] [facility] [place] SARS-COV-2 COVID-19 MODERNA 12+ YRS VACCINE 2020-08-17 00:00:[address] [facility] [place] SARS-COV-2 COVID-19 MODERNA 12+ YRS VACCINE 2020-08-17 00:00:[address] [facility] [place] SARS-COV-2 COVID-19 MODERNA 12+ YRS VACCINE 2020-08-17 00:00:[address] [facility] [place] SARS-COV-2 COVID-19 MODERNA 12+ YRS VACCINE 2020-08-17 00:00:[address] [facility] [place] SARS-COV-2 COVID-19 MODERNA 12+ YRS VACCINE 2020-08-17 00:00:[address] [facility] [place] SARS-COV-2 COVID-19 MODERNA 12+ YRS VACCINE 2020-08-17 00:00:[address] [facility] [facility] [place] [place] SARS-COV-2 COVID-19 MODERNA 12+ YRS VACCINE 2020-08-17 00:00:[address] [facility] [place] SARS-COV-2 COVID-19 MODERNA 12+ YRS VACCINE 2020-08-17 00:00:[address] [facility] [place] SARS-COV-2 COVID-19 MODERNA 12+ YRS VACCINE 2020-08-17 00:00:[address] [facility] [place] SARS-COV-2 COVID-19 MODERNA 12+ YRS VACCINE 2020-08-17 00:00:[address] [facility] [place] SARS-COV-2 COVID-19 MODERNA 12+ YRS VACCINE 2020-08-17 00:00:[address] [facility] [place] SARS-COV-2 COVID-19 MODERNA 12+ YRS VACCINE 2020-08-17 00:00:[address] [facility] [place] SARS-COV-2 COVID-19 MODERNA 12+ YRS VACCINE 2020-08-17 00:00:[address] [facility] [place] SARS-COV-2 COVID-19 MODERNA 12+ YRS VACCINE 2020-08-17 00:00:[address] [facility] [place] SARS-COV-2 COVID-19 MODERNA 12+ YRS VACCINE 2020-08-17 00:00:[address] [facility] [place] SARS-COV-2 COVID-19 MODERNA 12+ YRS VACCINE 2020-08-17 00:00:[address] [facility] [place] SARS-COV-2 COVID-19 MODERNA 12+ YRS VACCINE 2020-08-17 00:00:[address] [facility] [place] SARS-COV-2 COVID-19 MODERNA 12+ YRS VACCINE 2020-08-17 00:00:[address] [facility] [place] SARS-COV-2 COVID-19 MODERNA 12+ YRS VACCINE 2020-08-17 00:00:[address] [facility] [place] SARS-COV-2 COVID-19 MODERNA 12+ YRS VACCINE 2020-08-17 00:00:[address] [facility] [place] SARS-COV-2 COVID-19 MODERNA 12+ YRS VACCINE 2020-08-17 00:00:[address] [facility] [place] SARS-COV-2 COVID-19 MODERNA 12+ YRS VACCINE 2020-08-17 00:00:[address] [facility] [place] SARS-COV-2 COVID-19 MODERNA 12+ YRS VACCINE 2020-08-17 00:00:[address] [facility] [place] SARS-COV-2 COVID-19 MODERNA 12+ YRS VACCINE 2020-08-17 00:00:[address] [facility] [place] SARS-COV-2 COVID-19 MODERNA 12+ YRS VACCINE 2020-08-17 00:00:[address] [facility] [place] SARS-COV-2 COVID-19 MODERNA 12+ YRS VACCINE 2020-08-17 00:00:[address] [facility] [place] SARS-COV-2 COVID-19 MODERNA 12+ YRS VACCINE 2020-08-17 00:00:[address] [facility] [place] SARS-COV-2 COVID-19 MODERNA 12+ YRS VACCINE 2020-08-17 00:00:[address] [facility] [place] SARS-COV-2 COVID-19 MODERNA 12+ YRS VACCINE 2020-08-17 00:00:[address] [facility] [place] SARS-COV-2 COVID-19 MODERNA 12+ YRS VACCINE 2020-08-17 00:00:[address] [facility] [place] SARS-COV-2 COVID-19 MODERNA 12+ YRS VACCINE 2020-08-17 00:00:[address] [facility] [place] SARS-COV-2 COVID-19 MODERNA 12+ YRS VACCINE 2020-08-17 00:00:[address] [facility] [place] SARS-COV-2 COVID-19 MODERNA 12+ YRS VACCINE 2020-08-17 00:00:[address] [facility] [place] SARS-COV-2 COVID-19 MODERNA 12+ YRS VACCINE 2020-08-17 00:00:[address] [facility] [place] SARS-COV-2 COVID-19 MODERNA 12+ YRS VACCINE 2020-08-17 00:00:[address] [facility] [place] SARS-COV-2 COVID-19 MODERNA 12+ YRS VACCINE 2020-08-17 00:00:[address] [facility] [place] SARS-COV-2 COVID-19 MODERNA 12+ YRS VACCINE 2020-08-17 00:00:[address] [facility] [place] SARS-COV-2 COVID-19 MODERNA 12+ YRS VACCINE 2020-08-17 00:00:[address] [facility] [place] SARS-COV-2 COVID-19 MODERNA 12+ YRS VACCINE 2020-08-17 00:00:[address] [facility] [place] SARS-COV-2 COVID-19 MODERNA 12+ YRS VACCINE 2020-08-17 00:00:[address] [facility] [place] SARS-COV-2 COVID-19 MODERNA 12+ YRS VACCINE 2020-08-17 00:00:[address] [facility] [place] SARS-COV-2 COVID-19 MODERNA 12+ YRS VACCINE 2020-08-17 00:00:[address] [facility] [place] SARS-COV-2 COVID-19 MODERNA 12+ YRS VACCINE 2020-08-17 00:00:[address] [facility] [place] SARS-COV-2 COVID-19 MODERNA 12+ YRS VACCINE 2020-08-17 00:00:[address] [facility] [place] SARS-COV-2 COVID-19 MODERNA 12+ YRS VACCINE 2020-08-17 00:00:[address] [facility] [place] SARS-COV-2 COVID-19 MODERNA 12+ YRS VACCINE 2020-08-17 00:00:[address] [facility] [place] SARS-COV-2 COVID-19 MODERNA 12+ YRS VACCINE 2020-08-17 00:00:[address] [facility] [place] SARS-COV-2 COVID-19 MODERNA 12+ YRS VACCINE 2020-08-17 00:00:[address] [facility] [place] SARS-COV-2 COVID-19 MODERNA 12+ YRS VACCINE 2020-08-17 00:00:[address] [facility] [place] SARS-COV-2 COVID-19 MODERNA 12+ YRS VACCINE 2020-08-17 00:00:[address] [facility] [place] SARS-COV-2 COVID-19 MODERNA 12+ YRS VACCINE 2020-08-17 00:00:[address] [facility] [place] Influenza Virus Vaccine Quad .5 mL IM 6+ MO 2020-04-13 00:00:[address] [facility] [place] Influenza Virus Vaccine Quad .5 mL IM 6+ MO 2020-04-13 00:00:[address] [facility] [place] Influenza Virus Vaccine Quad .5 mL IM 6+ MO 2020-04-13 00:00:[address] [facility] [place] Influenza Virus Vaccine Quad .5 mL IM 6+ MO 2020-04-13 00:00:[address] [facility] [place] Influenza Virus Vaccine Quad .5 mL IM 6+ MO 2020-04-13 00:00:[address] [facility] [place] Influenza Virus Vaccine Quad .5 mL IM 6+ MO 2020-04-13 00:00:[address] [facility] [place] Influenza Virus Vaccine Quad .5 mL IM 6+ MO 2020-04-13 00:00:[address] [facility] [place] Influenza Virus Vaccine Quad .5 mL IM 6+ MO 2020-04-13 00:00:[address] [facility] [place] Influenza Virus Vaccine Quad .5 mL IM 6+ MO 2020-04-13 00:00:[address] [facility] [place] Influenza Virus Vaccine Quad .5 mL IM 6+ MO 2020-04-13 00:00:[address] [facility] [place] Influenza Virus Vaccine Quad .5 mL IM 6+ MO 2020-04-13 00:00:[address] [facility] [place] Influenza Virus Vaccine Quad .5 mL IM 6+ MO 2020-04-13 00:00:[address] [facility] [place] Influenza Virus Vaccine Quad .5 mL IM 6+ MO 2020-04-13 00:00:[address] [facility] [place] Influenza Virus Vaccine Quad .5 mL IM 6+ MO 2020-04-13 00:00:[address] [facility] [place] Influenza Virus Vaccine Quad .5 mL IM 6+ MO 2020-04-13 00:00:[address] [facility] [place] Influenza Virus Vaccine Quad .5 mL IM 6+ MO 2020-04-13 00:00:[address] [facility] [place] Influenza Virus Vaccine Quad .5 mL IM 6+ MO 2020-04-13 00:00:[address] [facility] [place] Influenza Virus Vaccine Quad .5 mL IM 6+ MO 2020-04-13 00:00:[address] [facility] [place] Influenza Virus Vaccine Quad .5 mL IM 6+ MO 2020-04-13 00:00:[address] [facility] [place] Influenza Virus Vaccine Quad .5 mL IM 6+ MO 2020-04-13 00:00:[address] [facility] [place] Influenza Virus Vaccine Quad .5 mL IM 6+ MO 2020-04-13 00:00:[address] [facility] [place] Influenza Virus Vaccine Quad .5 mL IM 6+ MO 2020-04-13 00:00:[address] [facility] [place] Influenza Virus Vaccine Quad .5 mL IM 6+ MO 2020-04-13 00:00:[address] [facility] [place] Influenza Virus Vaccine Quad .5 mL IM 6+ MO 2020-04-13 00:00:[address] [facility] [place] Influenza Virus Vaccine Quad .5 mL IM 6+ MO 2020-04-13 00:00:[address] [facility] [place] Influenza Virus Vaccine Quad .5 mL IM 6+ MO 2020-04-13 00:00:[address] [facility] [place] Influenza Virus Vaccine Quad .5 mL IM 6+ MO 2020-04-13 00:00:[address] [facility] [place] Influenza Virus Vaccine Quad .5 mL IM 6+ MO 2020-04-13 00:00:[address] [facility] [place] Influenza Virus Vaccine Quad .5 mL IM 6+ MO 2020-04-13 00:00:[address] [facility] [place] Influenza Virus Vaccine Quad .5 mL IM 6+ MO 2020-04-13 00:00:[address] [facility] [place] Influenza Virus Vaccine Quad .5 mL IM 6+ MO 2020-04-13 00:00:[address] [facility] [place] Influenza Virus Vaccine Quad .5 mL IM 6+ MO 2020-04-13 00:00:[address] [facility] [place] Influenza Virus Vaccine Quad .5 mL IM 6+ MO 2020-04-13 00:00:[address] [facility] [place] Influenza Virus Vaccine Quad .5 mL IM 6+ MO 2020-04-13 00:00:[address] [facility] [place] Influenza Virus Vaccine Quad .5 mL IM 6+ MO 2020-04-13 00:00:[address] [facility] [place] Influenza Virus Vaccine Quad .5 mL IM 6+ MO 2020-04-13 00:00:[address] [facility] [place] Influenza Virus Vaccine Quad .5 mL IM 6+ MO 2020-04-13 00:00:[address] [facility] [place] Influenza Virus Vaccine Quad .5 mL IM 6+ MO 2020-04-13 00:00:[address] [facility] [place] Influenza Virus Vaccine Quad .5 mL IM 6+ MO 2020-04-13 00:00:[address] [facility] [place] Influenza Virus Vaccine Quad .5 mL IM 6+ MO 2020-04-13 00:00:[address] [facility] [place] Influenza Virus Vaccine Quad .5 mL IM 6+ MO 2020-04-13 00:00:[address] [facility] [place] Influenza Virus Vaccine Quad .5 mL IM 6+ MO 2020-04-13 00:00:[address] [facility] [place] Influenza Virus Vaccine Quad .5 mL IM 6+ MO 2020-04-13 00:00:[address] [facility] [place] Influenza Virus Vaccine Quad .5 mL IM 6+ MO 2020-04-13 00:00:[address] [facility] [place] Influenza Virus Vaccine Quad .5 mL IM 6+ MO 2020-04-13 00:00:[address] [facility] [place] Influenza Virus Vaccine Quad .5 mL IM 6+ MO 2020-04-13 00:00:[address] [facility] [place] Influenza Virus Vaccine Quad .5 mL IM 6+ MO 2020-04-13 00:00:[address] [facility] [place] Influenza Virus Vaccine Quad .5 mL IM 6+ MO 2020-04-13 00:00:[address] [facility] [place] Influenza Virus Vaccine Quad .5 mL IM 6+ MO 2020-04-13 00:00:[address] [facility] [place] Influenza Virus Vaccine Quad .5 mL IM 6+ MO 2020-04-13 00:00:[address] [facility] [place] Influenza Virus Vaccine Quad .5 mL IM 6+ MO 2020-04-13 00:00:[address] [facility] [place] Influenza Virus Vaccine Quad .5 mL IM 6+ MO 2020-04-13 00:00:[address] [facility] [place] Influenza Virus Vaccine Quad .5 mL IM 6+ MO 2020-04-13 00:00:[address] [facility] [place] Influenza Virus Vaccine Quad .5 mL IM 6+ MO 2020-04-13 00:00:[address] [facility] [place] Influenza Virus Vaccine Quad .5 mL IM 6+ MO 2020-04-13 00:00:[address] [facility] [place] Influenza Virus Vaccine Quad .5 mL IM 6+ MO 2020-04-13 00:00:[address] [facility] [place] Influenza Virus Vaccine Quad .5 mL IM 6+ MO 2020-04-13 00:00:[address] [facility] [place] Influenza Virus Vaccine Quad .5 mL IM 6+ MO (FLUZONE/FLULAVAL/F LUARIX) 2020-04-13 00:00:[address] [facility] [place] Influenza Virus Vaccine Quad .5 mL IM 6+ MO (FLUZONE/FLULAVAL/F LUARIX) 2020-04-13 00:00:[address] [facility] [place] Influenza Virus Vaccine Quad .5 mL IM 6+ MO (FLUZONE/FLULAVAL/F LUARIX) 2020-04-13 00:00:[address] [facility] [place] Influenza Virus Vaccine Quad .5 mL IM 6+ MO (FLUZONE/FLULAVAL/F LUARIX) 2020-04-13 00:00:[address] [facility] [place] HEP B, Adult Dosage 2019-12-07 00:00:[address] [facility] [place] HEP B, Adult Dosage 2019-12-07 00:00:[address] [facility] [place] HEP B, Adult Dosage 2019-12-07 00:00:[address] [facility] [place] HEP B, Adult Dosage 2019-12-07 00:00:[address] [facility] [place] HEP B, Adult Dosage 2019-12-07 00:00:[address] [facility] [place] HEP B, Adult Dosage 2019-12-07 00:00:[address] [facility] [place] HEP B, Adult Dosage 2019-12-07 00:00:[address] [facility] [place] HEP B, Adult Dosage 2019-12-07 00:00:[address] [facility] [place] HEP B, Adult Dosage 2019-12-07 00:00:[address] [facility] [place] HEP B, Adult Dosage 2019-12-07 00:00:[address] [facility] [place] HEP B, Adult Dosage 2019-12-07 00:00:[address] [facility] [place] HEP B, Adult Dosage 2019-12-07 00:00:[address] [facility] [place] HEP B, Adult Dosage 2019-12-07 00:00:[address] [facility] [place] HEP B, Adult Dosage 2019-12-07 00:00:[address] [facility] [place] HEP B, Adult Dosage 2019-12-07 00:00:[address] [facility] [place] HEP B, Adult Dosage 2019-12-07 00:00:[address] [facility] [place] HEP B, Adult Dosage 2019-12-07 00:00:[address] [facility] [place] HEP B, Adult Dosage 2019-12-07 00:00:[address] [facility] [place] HEP B, Adult Dosage 2019-12-07 00:00:[address] [facility] [place] HEP B, Adult Dosage 2019-12-07 00:00:[address] [facility] [place] HEP B, Adult Dosage 2019-12-07 00:00:[address] [facility] [place] HEP B, Adult Dosage 2019-12-07 00:00:[address] [facility] [place] HEP B, Adult Dosage 2019-12-07 00:00:[address] [facility] [place] HEP B, Adult Dosage 2019-12-07 00:00:[address] [facility] [place] HEP B, Adult Dosage 2019-12-07 00:00:[address] [facility] [place] HEP B, Adult Dosage 2019-12-07 00:00:[address] [facility] [place] HEP B, Adult Dosage 2019-12-07 00:00:[address] [facility] [place] HEP B, Adult Dosage 2019-12-07 00:00:[address] [facility] [place] HEP B, Adult Dosage 2019-12-07 00:00:[address] [facility] [place] HEP B, Adult Dosage 2019-12-07 00:00:[address] [facility] [place] HEP B, Adult Dosage 2019-12-07 00:00:[address] [facility] [place] HEP B, Adult Dosage 2019-12-07 00:00:[address] [facility] [place] HEP B, Adult Dosage 2019-12-07 00:00:[address] [facility] [place] HEP B, Adult Dosage 2019-12-07 00:00:[address] [facility] [place] HEP B, Adult Dosage 2019-12-07 00:00:[address] [facility] [place] HEP B, Adult Dosage 2019-12-07 00:00:[address] [facility] [place] HEP B, Adult Dosage 2019-12-07 00:00:[address] [facility] [place] HEP B, Adult Dosage 2019-12-07 00:00:[address] [facility] [place] HEP B, Adult Dosage 2019-12-07 00:00:[address] [facility] [place] HEP B, Adult Dosage 2019-12-07 00:00:[address] [facility] [place] HEP B, Adult Dosage 2019-12-07 00:00:[address] [facility] [place] HEP B, Adult Dosage 2019-12-07 00:00:[address] [facility] [place] HEP B, Adult Dosage 2019-12-07 00:00:[address] [facility] [place] HEP B, Adult Dosage 2019-12-07 00:00:[address] [facility] [place] HEP B, Adult Dosage 2019-12-07 00:00:[address] [facility] [place] HEP B, Adult Dosage 2019-12-07 00:00:[address] [facility] [place] HEP B, Adult Dosage 2019-12-07 00:00:[address] [facility] [place] HEP B, Adult Dosage 2019-12-07 00:00:[address] [facility] [place] HEP B, Adult Dosage 2019-12-07 00:00:[address] [facility] [place] HEP B, Adult Dosage 2019-12-07 00:00:[address] [facility] [place] HEP B, Adult Dosage 2019-12-07 00:00:[address] [facility] [place] HEP B, Adult Dosage 2019-12-07 00:00:[address] [facility] [place] HEP B, Adult Dosage 2019-12-07 00:00:[address] [facility] [place] HEP B, Adult Dosage 2019-12-07 00:00:[address] [facility] [place] HEP B, Adult Dosage 2019-12-07 00:00:[address] [facility] [place] HEP B, Adult Dosage 2019-12-07 00:00:[address] [facility] [place] HEP B, Adult Dosage 2019-12-07 00:00:[address] [facility] [place] HEP B, Adult Dosage 2019-12-07 00:00:[address] [facility] [place] HEP B, Adult Dosage 2019-12-07 00:00:[address] [facility] [place] HEP B, Adult Dosage 2019-12-07 00:00:[address] [facility] [place] HEP B, Adult Dosage 2019-12-07 00:00:00 Completed HEP B, Adult Dosage 2019-07-06 00:00:[address] [facility] [place] HEP B, Adult Dosage 2019-07-06 00:00:[address] [facility] [place] HEP B, Adult Dosage 2019-07-06 00:00:[address] [facility] [place] HEP B, Adult Dosage 2019-07-06 00:00:[address] [facility] [place] HEP B, Adult Dosage 2019-07-06 00:00:[address] [facility] [place] HEP B, Adult Dosage 2019-07-06 00:00:[address] [facility] [place] HEP B, Adult Dosage 2019-07-06 00:00:[address] [facility] [place] HEP B, Adult Dosage 2019-07-06 00:00:[address] [facility] [place] HEP B, Adult Dosage 2019-07-06 00:00:[address] [facility] [place] HEP B, Adult Dosage 2019-07-06 00:00:[address] [facility] [place] HEP B, Adult Dosage 2019-07-06 00:00:[address] [facility] [place] HEP B, Adult Dosage 2019-07-06 00:00:[address] [facility] [place] HEP B, Adult Dosage 2019-07-06 00:00:[address] [facility] [place] HEP B, Adult Dosage 2019-07-06 00:00:[address] [facility] [place] HEP B, Adult Dosage 2019-07-06 00:00:[address] [facility] [place] HEP B, Adult Dosage 2019-07-06 00:00:[address] [facility] [place] HEP B, Adult Dosage 2019-07-06 00:00:[address] [facility] [place] HEP B, Adult Dosage 2019-07-06 00:00:[address] [facility] [place] HEP B, Adult Dosage 2019-07-06 00:00:[address] [facility] [place] HEP B, Adult Dosage 2019-07-06 00:00:[address] [facility] [place] HEP B, Adult Dosage 2019-07-06 00:00:[address] [facility] [place] HEP B, Adult Dosage 2019-07-06 00:00:[address] [facility] [place] HEP B, Adult Dosage 2019-07-06 00:00:[address] [facility] [place] HEP B, Adult Dosage 2019-07-06 00:00:[address] [facility] [place] HEP B, Adult Dosage 2019-07-06 00:00:[address] [facility] [place] HEP B, Adult Dosage 2019-07-06 00:00:[address] [facility] [place] HEP B, Adult Dosage 2019-07-06 00:00:[address] [facility] [place] HEP B, Adult Dosage 2019-07-06 00:00:[address] [facility] [place] HEP B, Adult Dosage 2019-07-06 00:00:[address] [facility] [place] HEP B, Adult Dosage 2019-07-06 00:00:[address] [facility] [place] HEP B, Adult Dosage 2019-07-06 00:00:[address] [facility] [place] HEP B, Adult Dosage 2019-07-06 00:00:[address] [facility] [place] HEP B, Adult Dosage 2019-07-06 00:00:[address] [facility] [place] HEP B, Adult Dosage 2019-07-06 00:00:[address] [facility] [place] HEP B, Adult Dosage 2019-07-06 00:00:[address] [facility] [place] HEP B, Adult Dosage 2019-07-06 00:00:[address] [facility] [place] HEP B, Adult Dosage 2019-07-06 00:00:[address] [facility] [place] HEP B, Adult Dosage 2019-07-06 00:00:[address] [facility] [place] HEP B, Adult Dosage 2019-07-06 00:00:[address] [facility] [place] HEP B, Adult Dosage 2019-07-06 00:00:[address] [facility] [place] HEP B, Adult Dosage 2019-07-06 00:00:[address] [facility] [place] HEP B, Adult Dosage 2019-07-06 00:00:[address] [facility] [place] HEP B, Adult Dosage 2019-07-06 00:00:00 [facility] [facility] [place], [place] HEP B, Adult Dosage 2019-07-06 00:00:[address] [facility] [place] HEP B, [place] Dosage 2019-07-06 00:00:[address] [facility] [place] HEP B, [place] Dosage 2019-07-06 00:00:[address] [facility] [place] HEP B, [place] Dosage 2019-07-06 00:00:[address] [facility] [place] HEP B, [place] Dosage 2019-07-06 00:00:[address] [facility] [place] HEP B, [place] Dosage 2019-07-06 00:00:[address] [facility] [place] HEP B, [place] Dosage 2019-07-06 00:00:[address] [facility] [place] HEP B, [place] Dosage 2019-07-06 00:00:[address] [facility] [place] HEP B, [place] Dosage 2019-07-06 00:00:[address] [facility] [place] HEP B, [place] Dosage 2019-07-06 00:00:[address] [facility] [place] HEP B, [place] Dosage 2019-07-06 00:00:[address] [facility] [place] HEP B, [place] Dosage 2019-07-06 00:00:00 Completed [facility] HEP B, Adult Dosage 2019-07-06 00:00:[address] [facility] [place] HEP B, [place] Dosage 2019-07-06 00:00:[address] [facility] [place] HEP B, [place] Dosage 2019-07-06 00:00:[address] [facility] [place] HEP B, [place] Dosage 2019-07-06 00:00:[address] [facility] [place] HEP B, [place] Dosage 2019-07-06 00:00:[address] [facility] [place] HEP B, [place] Dosage 2019-07-06 00:00:[address] [facility] [place] HEP B, [place] Dosage 2019-06-04 00:00:[address] [facility] [place] HEP B, [place] Dosage 2019-06-04 00:00:[address] [facility] [place] HEP B, [place] Dosage 2019-06-04 00:00:[address] [facility] [place] HEP B, [place] Dosage 2019-06-04 00:00:[address] [facility] [place] HEP B, [place] Dosage 2019-06-04 00:00:[address] [facility] [place] HEP B, [place] Dosage 2019-06-04 00:00:[address] [facility] [place] HEP B, [place] Dosage 2019-06-04 00:00:[address] [facility] [place] HEP B, [place] Dosage 2019-06-04 00:00:[address] [facility] [place] HEP B, [place] Dosage 2019-06-04 00:00:[address] [facility] [place] HEP B, [place] Dosage 2019-06-04 00:00:[address] [facility] [place] HEP B, [place] Dosage 2019-06-04 00:00:[address] [facility] [place] HEP B, [place] Dosage 2019-06-04 00:00:[address] [facility] [place] HEP B, [place] Dosage 2019-06-04 00:00:[address] [facility] [place] HEP B, [place] Dosage 2019-06-04 00:00:[address] [facility] [place] HEP B, [place] Dosage 2019-06-04 00:00:[address] [facility] [place] HEP B, [place] Dosage 2019-06-04 00:00:[address] [facility] [place] HEP B, [place] Dosage 2019-06-04 00:00:[address] [facility] [place] HEP B, [place] Dosage 2019-06-04 00:00:[address] [facility] [place] HEP B, [place] Dosage 2019-06-04 00:00:[address] [facility] [place] HEP B, [place] Dosage 2019-06-04 00:00:[address] [facility] [place] HEP B, [place] Dosage 2019-06-04 00:00:[address] [facility] [place] HEP B, [place] Dosage 2019-06-04 00:00:[address] [facility] [place] HEP B, [place] Dosage 2019-06-04 00:00:[address] [facility] [place] HEP B, [place] Dosage 2019-06-04 00:00:[address] [facility] [place] HEP B, [place] Dosage 2019-06-04 00:00:[address] [facility] [place] HEP B, [place] Dosage 2019-06-04 00:00:[address] [facility] [place] HEP B, [place] Dosage 2019-06-04 00:00:[address] [facility] [place] HEP B, [place] Dosage 2019-06-04 00:00:[address] [facility] [place] HEP B, [place] Dosage 2019-06-04 00:00:[address] [facility] [place] HEP B, [place] Dosage 2019-06-04 00:00:[address] [facility] [place] HEP B, [place] Dosage 2019-06-04 00:00:[address] [facility] [place] HEP B, [place] Dosage 2019-06-04 00:00:[address] [facility] [place] HEP B, [place] Dosage 2019-06-04 00:00:[address] [facility] [place] HEP B, [place] Dosage 2019-06-04 00:00:[address] [facility] [place] HEP B, [place] Dosage 2019-06-04 00:00:[address] [facility] [place] HEP B, [place] Dosage 2019-06-04 00:00:[address] [facility] [place] HEP B, [place] Dosage 2019-06-04 00:00:[address] [facility] [place] HEP B, [place] Dosage 2019-06-04 00:00:[address] [facility] [place] HEP B, [place] Dosage 2019-06-04 00:00:[address] [facility] [place] HEP B, [place] Dosage 2019-06-04 00:00:[address] [facility] [place] HEP B, [place] Dosage 2019-06-04 00:00:[address] [facility] [place] HEP B, [place] Dosage 2019-06-04 00:00:[address] [facility] [place] HEP B, [place] Dosage 2019-06-04 00:00:[address] [facility] [place] HEP B, [place] Dosage 2019-06-04 00:00:[address] [facility] [place] HEP B, [place] Dosage 2019-06-04 00:00:[address] [facility] [place] HEP B, [place] Dosage 2019-06-04 00:00:[address] [facility] [place] HEP B, [place] Dosage 2019-06-04 00:00:[address] [facility] [place] HEP B, [place] Dosage 2019-06-04 00:00:[address] [facility] [place] HEP B, [place] Dosage 2019-06-04 00:00:[address] [facility] [place] HEP B, [place] Dosage 2019-06-04 00:00:[address] [facility] [place] HEP B, [place] Dosage 2019-06-04 00:00:[address] [facility] [place] HEP B, [place] Dosage 2019-06-04 00:00:[address] [facility] [place] HEP B, [place] Dosage 2019-06-04 00:00:[address] [facility] [place] HEP B, [place] Dosage 2019-06-04 00:00:[address] [facility] [place] HEP B, [place] Dosage 2019-06-04 00:00:[address] [facility] [place] HEP B, [place] Dosage 2019-06-04 00:00:[address] [facility] [place] HEP B, [place] Dosage 2019-06-04 00:00:[address] [facility] [place] HEP B, Adult Dosage 2019-06-04 00:00:[address] [facility] [place] HEP B, [place] Dosage 2019-06-04 00:00:[address] [facility] [place] HEP B, [place] Dosage 2019-06-04 00:00:[address] [facility] [place] HEP B, [place] Dosage 2019-06-04 00:00:00 Completed Influenza Virus Vaccine Quad .5 mL IM 6+ MO 2019-03-17 00:00:[address] [facility] [place] Influenza Virus Vaccine Quad .5 mL IM 6+ MO 2019-03-17 00:00:[address] [facility] [place] Influenza Virus Vaccine Quad .5 mL IM 6+ MO 2019-03-17 00:00:[address] [facility] [place] Influenza Virus Vaccine Quad .5 mL IM 6+ MO 2019-03-17 00:00:[address] [facility] [place] Influenza Virus Vaccine Quad .5 mL IM 6+ MO 2019-03-17 00:00:[address] [facility] [place] Influenza Virus Vaccine Quad .5 mL IM 6+ MO 2019-03-17 00:00:[address] [facility] [place] Influenza Virus Vaccine Quad .5 mL IM 6+ MO 2019-03-17 00:00:[address] [facility] [place] Influenza Virus Vaccine Quad .5 mL IM 6+ MO 2019-03-17 00:00:[address] [facility] [place] Influenza Virus Vaccine Quad .5 mL IM 6+ MO 2019-03-17 00:00:[address] [facility] [place] Influenza Virus Vaccine Quad .5 mL IM 6+ MO 2019-03-17 00:00:[address] [facility] [place] Influenza Virus Vaccine Quad .5 mL IM 6+ MO 2019-03-17 00:00:[address] [facility] [place] Influenza Virus Vaccine Quad .5 mL IM 6+ MO 2019-03-17 00:00:[address] [facility] [place] Influenza Virus Vaccine Quad .5 mL IM 6+ MO 2019-03-17 00:00:[address] [facility] [place] Influenza Virus Vaccine Quad .5 mL IM 6+ MO 2019-03-17 00:00:[address] [facility] [place] Influenza Virus Vaccine Quad .5 mL IM 6+ MO 2019-03-17 00:00:[address] [facility] [place] Influenza Virus Vaccine Quad .5 mL IM 6+ MO 2019-03-17 00:00:[address] [facility] [place] Influenza Virus Vaccine Quad .5 mL IM 6+ MO 2019-03-17 00:00:[address] [facility] [place] Influenza Virus Vaccine Quad .5 mL IM 6+ MO 2019-03-17 00:00:[address] [facility] [place] Influenza Virus Vaccine Quad .5 mL IM 6+ MO 2019-03-17 00:00:[address] [facility] [place] Influenza Virus Vaccine Quad .5 mL IM 6+ MO 2019-03-17 00:00:[address] [facility] [place] Influenza Virus Vaccine Quad .5 mL IM 6+ MO 2019-03-17 00:00:[address] [facility] [place] Influenza Virus Vaccine Quad .5 mL IM 6+ MO 2019-03-17 00:00:[address] [facility] [place] Influenza Virus Vaccine Quad .5 mL IM 6+ MO 2019-03-17 00:00:[address] [facility] [place] Influenza Virus Vaccine Quad .5 mL IM 6+ MO 2019-03-17 00:00:[address] [facility] [place] Influenza Virus Vaccine Quad .5 mL IM 6+ MO 2019-03-17 00:00:[address] [facility] [place] Influenza Virus Vaccine Quad .5 mL IM 6+ MO 2019-03-17 00:00:[address] [facility] [place] Influenza Virus Vaccine Quad .5 mL IM 6+ MO 2019-03-17 00:00:[address] [facility] [place] Influenza Virus Vaccine Quad .5 mL IM 6+ MO 2019-03-17 00:00:[address] [facility] [place] Influenza Virus Vaccine Quad .5 mL IM 6+ MO 2019-03-17 00:00:[address] [facility] [place] Influenza Virus Vaccine Quad .5 mL IM 6+ MO 2019-03-17 00:00:[address] [facility] [place] Influenza Virus Vaccine Quad .5 mL IM 6+ MO 2019-03-17 00:00:[address] [facility] [place] Influenza Virus Vaccine Quad .5 mL IM 6+ MO 2019-03-17 00:00:[address] [facility] [place] Influenza Virus Vaccine Quad .5 mL IM 6+ MO 2019-03-17 00:00:[address] [facility] [place] Influenza Virus Vaccine Quad .5 mL IM 6+ MO 2019-03-17 00:00:[address] [facility] [place] Influenza Virus Vaccine Quad .5 mL IM 6+ MO 2019-03-17 00:00:[address] [facility] [place] Influenza Virus Vaccine Quad .5 mL IM 6+ MO 2019-03-17 00:00:[address] [facility] [place] Influenza Virus Vaccine Quad .5 mL IM 6+ MO 2019-03-17 00:00:[address] [facility] [place] Influenza Virus Vaccine Quad .5 mL IM 6+ MO 2019-03-17 00:00:[address] [facility] [place] Influenza Virus Vaccine Quad .5 mL IM 6+ MO 2019-03-17 00:00:[address] [facility] [place] Influenza Virus Vaccine Quad .5 mL IM 6+ MO 2019-03-17 00:00:[address] [facility] [place] Influenza Virus Vaccine Quad .5 mL IM 6+ MO 2019-03-17 00:00:[address] [facility] [place] Influenza Virus Vaccine Quad .5 mL IM 6+ MO 2019-03-17 00:00:[address] [facility] [place] Influenza Virus Vaccine Quad .5 mL IM 6+ MO 2019-03-17 00:00:[address] [facility] [place] Influenza Virus Vaccine Quad .5 mL IM 6+ MO 2019-03-17 00:00:[address] [facility] [place] Influenza Virus Vaccine Quad .5 mL IM 6+ MO 2019-03-17 00:00:[address] [facility] [place] Influenza Virus Vaccine Quad .5 mL IM 6+ MO 2019-03-17 00:00:[address] [facility] [place] Influenza Virus Vaccine Quad .5 mL IM 6+ MO 2019-03-17 00:00:[address] [facility] [place] Influenza Virus Vaccine Quad .5 mL IM 6+ MO 2019-03-17 00:00:[address] [facility] [place] Influenza Virus Vaccine Quad .5 mL IM 6+ MO 2019-03-17 00:00:[address] [facility] [place] Influenza Virus Vaccine Quad .5 mL IM 6+ MO 2019-03-17 00:00:[address] [facility] [place] Influenza Virus Vaccine Quad .5 mL IM 6+ MO 2019-03-17 00:00:[address] [facility] [place] Influenza Virus Vaccine Quad .5 mL IM 6+ MO 2019-03-17 00:00:[address] [facility] [place] Influenza Virus Vaccine Quad .5 mL IM 6+ MO 2019-03-17 00:00:[address] [facility] [place] Influenza Virus Vaccine Quad .5 mL IM 6+ MO 2019-03-17 00:00:[address] [facility] [place] Influenza Virus Vaccine Quad .5 mL IM 6+ MO 2019-03-17 00:00:[address] [facility] [place] Influenza Virus Vaccine Quad .5 mL IM 6+ MO 2019-03-17 00:00:[address] [facility] [place] Influenza Virus Vaccine Quad .5 mL IM 6+ MO 2019-03-17 00:00:[address] [facility] [place] Influenza Virus Vaccine Quad .5 mL IM 6+ MO (FLUZONE/FLULAVAL/F LUARIX) 2019-03-17 00:00:[address] [facility] [place] Influenza Virus Vaccine Quad .5 mL IM 6+ MO (FLUZONE/FLULAVAL/F LUARIX) 2019-03-17 00:00:[address] [facility] [place] Influenza Virus Vaccine Quad .5 mL IM 6+ MO (FLUZONE/FLULAVAL/F LUARIX) 2019-03-17 00:00:[address] [facility] [place] Influenza Virus Vaccine Quad .5 mL IM 6+ MO (FLUZONE/FLULAVAL/F LUARIX) 2019-03-17 00:00:00 Completed TDAP 2013-11-11 00:00:[address] [facility] [place] TDAP 2013-11-11 00:00:[address] [facility] [place] TDAP 2013-11-11 00:00:[address] [facility] [place] TDAP 2013-11-11 00:00:00 Completed [facility] TDAP 2013-11-11 00:00:[address] [facility] [place] TDAP 2013-11-11 00:00:[address] [facility] [place] TDAP 2013-11-11 00:00:[address] [facility] [place] TDAP 2013-11-11 00:00:[address] [facility] [place] TDAP 2013-11-11 00:00:[address] [facility] [place] TDAP 2013-11-11 00:00:[address] [facility] [place] TDAP 2013-11-11 00:00:[address] [facility] [place] TDAP 2013-11-11 00:00:[address] [facility] [place] TDAP 2013-11-11 00:00:[address] [facility] [place] TDAP 2013-11-11 00:00:[address] [facility] [place] TDAP 2013-11-11 00:00:[address] [facility] [place] TDAP 2013-11-11 00:00:[address] [facility] [place] TDAP 2013-11-11 00:00:00 Completed [facility] TDAP 2013-11-11 00:00:[address] [facility] [place] TDAP 2013-11-11 00:00:[address] [facility] [place] TDAP 2013-11-11 00:00:[address] [facility] [place] TDAP 2013-11-11 00:00:[address] [facility] [place] TDAP 2013-11-11 00:00:[address] [facility] [place] TDAP 2013-11-11 00:00:00 Completed [facility] TDAP 2013-11-11 00:00:00 Completed [facility] TDAP 2013-11-11 00:00:00 Completed [facility] TDAP 2013-11-11 00:00:00 Completed [facility] TDAP 2013-11-11 00:00:00 Completed [facility] TDAP 2013-11-11 00:00:00 Completed [facility] TDAP 2013-11-11 00:00:00 Completed [facility] TDAP 2013-11-11 00:00:00 Completed [facility] TDAP 2013-11-11 00:00:00 Completed [facility] TDAP 2013-11-11 00:00:00 Completed [facility] TDAP 2013-11-11 00:00:[address] [facility] [place] TDAP 2013-11-11 00:00:00 Completed [facility] TDAP 2013-11-11 00:00:[address] [facility] [place] TDAP 2013-11-11 00:00:[address] [facility] [place] TDAP 2013-11-11 00:00:[address] [facility] [place] TDAP 2013-11-11 00:00:00 Completed [facility] TDAP 2013-11-11 00:00:[address] [facility] [place] TDAP 2013-11-11 00:00:[address] [facility] [place] TDAP 2013-11-11 00:00:[address] [facility] [place] TDAP 2013-11-11 00:00:[address] [facility] [place] TDAP 2013-11-11 00:00:[address] [facility] [place] TDAP 2013-11-11 00:00:[address] [facility] [place] TDAP 2013-11-11 00:00:[address] [facility] [place] TDAP 2013-11-11 00:00:[address] [facility] [place] TDAP 2013-11-11 00:00:[address] [facility] [place] TDAP 2013-11-11 00:00:[address] [facility] [place] TDAP 2013-11-11 00:00:[address] [facility] [place] TDAP 2013-11-11 00:00:[address] [facility] [place] TDAP 2013-11-11 00:00:00 Completed [facility] TDAP 2013-11-11 00:00:00 Completed [facility] TDAP 2013-11-11 00:00:00 Completed [facility] TDAP 2013-11-11 00:00:00 Completed [facility] TDAP 2013-11-11 00:00:00 Completed [facility] TDAP 2013-11-11 00:00:00 Completed [facility] TDAP 2013-11-11 00:00:00 Completed [facility] TDAP 2013-11-11 00:00:00 Completed [facility] TDAP 2013-11-11 00:00:[address] [facility] [place] TDAP 2013-11-11 00:00:[address] [facility] [place] TDAP 2013-11-11 00:00:[address] [facility] [place] Td 1993-06-03 00:00:[address] [facility] [place] Td 1993-06-03 00:00:[address] [facility] [place] Td 1993-06-03 00:00:[address] [facility] [place] Td 1993-06-03 00:00:[address] [facility] [place] Td 1993-06-03 00:00:[address] [facility] [place] Td 1993-06-03 00:00:[address] [facility] [place] Td 1993-06-03 00:00:[address] [facility] [place] Td 1993-06-03 00:00:[address] [facility] [place] Td 1993-06-03 00:00:[address] [facility] [place] Td 1993-06-03 00:00:[address] [facility] [place] TD, NOS 1993-06-03 00:00:[address] [facility] [place] TD, NOS 1993-06-03 00:00:[address] [facility] [place] TD, NOS 1993-06-03 00:00:00 Completed [facility] TD, NOS 1993-06-03 00:00:00 Completed [facility] TD, NOS 1993-06-03 00:00:00 Completed [facility] TD, NOS 1993-06-03 00:00:00 Completed [facility] TD, NOS 1993-06-03 00:00:00 Completed [facility] TD, NOS 1993-06-03 00:00:00 Completed [facility] TD, NOS 1993-06-03 00:00:00 Completed [facility] TD, NOS 1993-06-03 00:00:00 Completed [facility] TD, NOS 1993-06-03 00:00:00 Completed [facility] TD, NOS 1993-06-03 00:00:00 Completed [facility] TD, NOS 1993-06-03 00:00:00 Completed [facility] TD, NOS 1993-06-03 00:00:00 Completed [facility] TD, NOS 1993-06-03 00:00:[address] [facility] [place] TD, NOS 1993-06-03 00:00:00 Completed [facility] TD, NOS 1993-06-03 00:00:00 Completed [facility] TD, NOS 1993-06-03 00:00:[address] [facility] [place] TD, NOS 1993-06-03 00:00:00 Completed [facility] TD, NOS 1993-06-03 00:00:00 Completed [facility] TD, NOS 1993-06-03 00:00:00 Completed [facility] TD, NOS 1993-06-03 00:00:00 Completed [facility] TD, NOS 1993-06-03 00:00:00 Completed [facility] TD, NOS 1993-06-03 00:00:00 Completed [facility] TD, NOS 1993-06-03 00:00:[address] [facility] [place] TD, NOS 1993-06-03 00:00:[address] [facility] [place] TD, NOS 1993-06-03 00:00:[address] [facility] [place] TD, NOS 1993-06-03 00:00:00 Completed [facility] TD, NOS 1993-06-03 00:00:00 Completed [facility] TD, NOS 1993-06-03 00:00:[address] [facility] [place] TD, NOS 1993-06-03 00:00:[address] [facility] [place] TD, NOS 1993-06-03 00:00:00 Completed [facility] TD, NOS 1993-06-03 00:00:00 Completed [facility] TD, NOS 1993-06-03 00:00:00 [facility] [facility], NOS 1993-06-03 00:00:00 Completed [facility] TD, NOS 1993-06-03 00:00:00 Completed [facility] TD, NOS 1993-06-03 00:00:00 Completed [facility] TD, NOS 1993-06-03 00:00:[address] [facility] [place] TD, NOS 1993-06-03 00:00:00 Completed [facility] TD, NOS 1993-06-03 00:00:00 Completed [facility] TD, NOS 1993-06-03 00:00:00 Completed [facility] TD, NOS 1993-06-03 00:00:[address] [facility] [place] TD, NOS 1993-06-03 00:00:[address] [facility] [place] TD, NOS 1993-06-03 00:00:[address] [facility] [place] TD, NOS 1993-06-03 00:00:[address] [facility] [place] TD, NOS 1993-06-03 00:00:[address] [facility] [place] TD, NOS 1993-06-03 00:00:[address] [facility] [place] TD, NOS 1993-06-03 00:00:[address] [facility] [place] TD, NOS 1993-06-03 00:00:[address] [facility] [place] TD, NOS 1993-06-03 00:00:[address] [facility] [place] TD, NOS 1993-06-03 00:00:[address] [facility] [place] TD, NOS Unknown Completed [facility] [place] TDAP Unknown Completed [facility] [place] Influenza Virus Vaccine Quad .5 mL IM 6+ MO (FLUZONE/FLULAVAL/F LUARIX) Unknown Completed [facility] [place] HEP B, Adult Dosage Unknown Completed [facility] [place] HEP B, Adult Dosage Unknown Completed [facility] [place] Influenza Virus Vaccine Quad .5 mL IM 6+ MO (FLUZONE/FLULAVAL/F LUARIX) Unknown Completed [facility] [place] SARS-COV-2 COVID-19 MODERNA 12+ YRS VACCINE Unknown Completed [facility] [place] Influenza Virus Vaccine Quad IM, Preserv and ABX Free 6 MO-64 YRS (FLUCELVAX) Unknown Completed [facility] [place] TD, NOS Unknown Completed [facility] [place] TDAP Unknown Completed [facility] [place] Influenza Virus Vaccine Quad .5 mL IM 6+ MO (FLUZONE/FLULAVAL/F LUARIX) Unknown Completed [facility] [place] HEP B, Adult Dosage Unknown Completed [facility] [place] HEP B, Adult Dosage Unknown Completed [facility] [place] Influenza Virus Vaccine Quad .5 mL IM 6+ MO (FLUZONE/FLULAVAL/F LUARIX) Unknown Completed [facility] [place] SARS-COV-2 COVID-19 MODERNA 12+ YRS VACCINE Unknown Completed [facility] [place] Influenza Virus Vaccine Quad IM, Preserv and ABX Free 6 MO-64 YRS (FLUCELVAX) Unknown Completed [facility] [place] TD, NOS Unknown Completed [facility] [place] TDAP Unknown Completed [facility] [place] Influenza Virus Vaccine Quad .5 mL IM 6+ MO (FLUZONE/FLULAVAL/F LUARIX) Unknown Completed [facility] [place] HEP B, Adult Dosage Unknown Completed [facility] [place] HEP B, Adult Dosage Unknown Completed [facility] [place] Influenza Virus Vaccine Quad .5 mL IM 6+ MO (FLUZONE/FLULAVAL/F LUARIX) Unknown Completed [facility] [place] SARS-COV-2 COVID-19 MODERNA 12+ YRS VACCINE Unknown Completed [facility] [place] Influenza Virus Vaccine Quad IM, Preserv and ABX Free 6 MO-64 YRS (FLUCELVAX) Unknown Completed [facility] [place] TD, NOS Unknown Completed [facility] [place] TDAP Unknown Completed [facility] [place] Influenza Virus Vaccine Quad .5 mL IM 6+ MO (FLUZONE/FLULAVAL/F LUARIX) Unknown Completed [facility] [place] HEP B, Adult Dosage Unknown Completed [facility] [place] HEP B, Adult Dosage Unknown Completed [facility] [place] Influenza Virus Vaccine Quad .5 mL IM 6+ MO (FLUZONE/FLULAVAL/F LUARIX) Unknown Completed [facility] [place] SARS-COV-2 COVID-19 MODERNA 12+ YRS VACCINE Unknown Completed [facility] [place] Influenza Virus Vaccine Quad IM, Preserv and ABX Free 6 MO-64 YRS (FLUCELVAX) Unknown Completed [facility] [place] TD, NOS Unknown Completed [facility] [place] TDAP Unknown Completed [facility] [place] Influenza Virus Vaccine Quad .5 mL IM 6+ MO (FLUZONE/FLULAVAL/F LUARIX) Unknown Completed [facility] [place] HEP B, Adult Dosage Unknown Completed [facility] [place] HEP B, Adult Dosage Unknown Completed [facility] [place] Influenza Virus Vaccine Quad .5 mL IM 6+ MO (FLUZONE/FLULAVAL/F LUARIX) Unknown Completed [facility] [place] SARS-COV-2 COVID-19 MODERNA 12+ YRS VACCINE Unknown Completed [facility] [place] Influenza Virus Vaccine Quad IM, Preserv and ABX Free 6 MO-64 YRS (FLUCELVAX) Unknown Completed [facility] [place] TD, NOS Unknown Completed [facility] [place] TDAP Unknown Completed [facility] [place] Influenza Virus Vaccine Quad .5 mL IM 6+ MO (FLUZONE/FLULAVAL/F LUARIX) Unknown Completed [facility] [place] HEP B, Adult Dosage Unknown Completed [facility] [place] HEP B, Adult Dosage Unknown Completed [facility] [place] Influenza Virus Vaccine Quad .5 mL IM 6+ MO (FLUZONE/FLULAVAL/F LUARIX) Unknown Completed [facility] [place] TD, NOS Unknown Completed [facility] [place] TDAP Unknown Completed [facility] [place] Influenza Virus Vaccine Quad .5 mL IM 6+ MO (FLUZONE/FLULAVAL/F LUARIX) Unknown Completed [facility] [place] HEP B, Adult Dosage Unknown Completed [facility] [place] HEP B, Adult Dosage Unknown Completed [facility] [place] Influenza Virus Vaccine Quad .5 mL IM 6+ MO (FLUZONE/FLULAVAL/F LUARIX) Unknown Completed [facility] [place] TD, NOS Unknown Completed [facility] [place] TDAP Unknown Completed [facility] [place] Influenza Virus Vaccine Quad .5 mL IM 6+ MO (FLUZONE/FLULAVAL/F LUARIX) Unknown Completed [facility] [place] HEP B, Adult Dosage Unknown Completed [facility] [place] HEP B, Adult Dosage Unknown Completed [facility] [place] Influenza Virus Vaccine Quad .5 mL IM 6+ MO (FLUZONE/FLULAVAL/F LUARIX) Unknown Completed [facility] [place] SARS-COV-2 COVID-19 MODERNA 12+ YRS VACCINE Unknown Completed [facility] [place] Influenza Virus Vaccine Quad IM, Preserv and ABX Free 6 MO-64 YRS (FLUCELVAX) Unknown Completed [facility] [place] TD, NOS Unknown Completed [facility] [place] TDAP Unknown Completed [facility] [place] Influenza Virus Vaccine Quad .5 mL IM 6+ MO (FLUZONE/FLULAVAL/F LUARIX) Unknown Completed [facility] [place] HEP B, Adult Dosage Unknown Completed [facility] [place] HEP B, Adult Dosage Unknown Completed [facility] [place] Influenza Virus Vaccine Quad .5 mL IM 6+ MO (FLUZONE/FLULAVAL/F LUARIX) Unknown Completed [facility] [place] SARS-COV-2 COVID-19 MODERNA 12+ YRS VACCINE Unknown Completed [facility] [place] Influenza Virus Vaccine Quad IM, Preserv and ABX Free 6 MO-64 YRS (FLUCELVAX) Unknown Completed [facility] [place] TD, NOS Unknown Completed [facility] [place] TDAP Unknown Completed [facility] [place] Influenza Virus Vaccine Quad .5 mL IM 6+ MO (FLUZONE/FLULAVAL/F LUARIX) Unknown Completed [facility] [place] HEP B, Adult Dosage Unknown Completed [facility] [place] HEP B, Adult Dosage Unknown Completed [facility] [place] Influenza Virus Vaccine Quad .5 mL IM 6+ MO (FLUZONE/FLULAVAL/F LUARIX) Unknown Completed [facility] [place] SARS-COV-2 COVID-19 MODERNA 12+ YRS VACCINE Unknown Completed [facility] [place] Influenza Virus Vaccine Quad IM, Preserv and ABX Free 6 MO-64 YRS (FLUCELVAX) Unknown Completed [facility] [place] TD, NOS Unknown Completed [facility] [place] TDAP Unknown Completed [facility] [place] Influenza Virus Vaccine Quad .5 mL IM 6+ MO (FLUZONE/FLULAVAL/F LUARIX) Unknown Completed [facility] [place] HEP B, Adult Dosage Unknown Completed [facility] [place] HEP B, Adult Dosage Unknown Completed [facility] [place] Influenza Virus Vaccine Quad .5 mL IM 6+ MO (FLUZONE/FLULAVAL/F LUARIX) Unknown Completed [facility] [place] SARS-COV-2 COVID-19 VACCINE - (MODERNA) Unknown Completed [facility] Influenza Virus Vaccine Quad IM, Preserv and ABX Free 6 MO-64 YRS (FLUCELVAX) Unknown Completed [facility] [place] [place] Vital Signs Vital Name Observation Time Observation Value Comments S ource Systolic blood pressure 2024-09-17 14:59:00 132 mm[Hg] [facility] Diastolic blood pressure 2024-09-17 14:59:00 84 mm[Hg] [facility] Heart rate 2024-09-17 14:58:00 84 /min [facility] Body height 2024-09-17 14:58:00 162.6 cm [facility] Body weight 2024-09-17 14:58:00 105.461 kg [facility] BMI 2024-09-17 14:58:00 39.91 kg/m2 [facility] Oxygen saturation in Arterial blood by Pulse oximetry 2024-09-17 14:58:00 99 /min [facility] Heart rate 2024-02-22 05:30:00 84 /min [facility] Body temperature 2024-02-22 05:30:[address] [facility] [place] [place] Oxygen saturation in Arterial blood by Pulse oximetry 2024-02-22 05:30:00 100 /min [facility] Systolic blood pressure 2024-02-22 05:00:00 128 mm[Hg] [facility] Diastolic blood pressure 2024-02-22 05:00:00 67 mm[Hg] [facility] Respiratory rate 2024-02-22 05:00:00 19 /min [facility] [place] [place] Body height 2024-02-22 01:34:00 162.6 cm [facility] Body weight 2024-02-22 01:34:00 95.255 kg [facility] BMI 2024-02-22 01:34:00 36.05 kg/m2 [facility] Systolic blood pressure 2024-01-30 18:15:00 154 mm[Hg] [facility] Diastolic blood pressure 2024-01-30 18:15:00 105 mm[Hg] [facility] Heart rate 2024-01-30 18:07:00 82 /min [facility] Body temperature 2024-01-30 18:07:[address] [facility] [place] [place] Respiratory rate 2024-01-30 18:07:00 18 /min [facility] [place] [place] Body height 2024-01-30 18:07:00 162.6 cm [facility] Body weight 2024-01-30 18:07:00 103.42 kg [facility] BMI 2024-01-30 18:07:00 39.14 kg/m2 [facility] Oxygen saturation in Arterial blood by Pulse oximetry 2024-01-30 18:07:00 100 /min [facility] Body weight 2023-03-11 13:33:00 102.513 kg [facility] BMI 2023-03-11 13:33:00 38.79 kg/m2 [facility] Systolic blood pressure 2023-01-18 14:50:00 128 mm[Hg] [facility] Diastolic blood pressure 2023-01-18 14:50:00 75 mm[Hg] [facility] Heart rate 2023-01-18 14:50:00 65 /min [facility] Respiratory rate 2023-01-18 14:50:00 18 /min [facility] [place] [place] Oxygen saturation in Arterial blood by Pulse oximetry 2023-01-18 14:50:00 100 /min [facility] Body temperature 2023-01-18 13:48:[address] [facility] [place] [place] Systolic blood pressure 2022-11-23 13:25:00 137 mm[Hg] [facility] Diastolic blood pressure 2022-11-23 13:25:00 83 mm[Hg] [facility] Heart rate 2022-11-23 13:25:00 66 /min [facility] Body height 2022-11-23 13:25:00 162.6 cm [facility] Body weight 2022-11-23 13:25:00 102.513 kg [facility] BMI 2022-11-23 13:25:00 38.79 kg/m2 [facility] Oxygen saturation in Arterial blood by Pulse oximetry 2022-11-23 13:25:00 98 /min [facility] Systolic blood pressure 2022-11-14 14:35:00 114 mm[Hg] [facility] Diastolic blood pressure 2022-11-14 14:35:00 76 mm[Hg] [facility] Heart rate 2022-11-14 14:35:00 83 /min [facility] Body temperature 2022-11-14 14:35:[address] [facility] [place] [place] Body height 2022-11-14 14:35:00 154.9 cm [facility] Body weight 2022-11-14 14:35:00 101.515 kg [facility] BMI 2022-11-14 14:35:00 42.29 kg/m2 [facility] Oxygen saturation in Arterial blood by Pulse oximetry 2022-11-14 14:35:00 98 /min [facility] Systolic blood pressure 2022-11-07 16:11:00 124 mm[Hg] [facility] Diastolic blood pressure 2022-11-07 16:11:00 79 mm[Hg] [facility] Heart rate 2022-11-07 16:11:00 77 /min [facility] Body height 2022-11-07 16:11:00 162.6 cm [facility] Body weight 2022-11-07 16:11:00 103.329 kg [facility] BMI 2022-11-07 16:11:00 39.10 kg/m2 [facility] Oxygen saturation in Arterial blood by Pulse oximetry 2022-11-07 16:11:00 100 /min [facility] Systolic blood pressure 2022-11-05 18:15:00 110 mm[Hg] [facility] Diastolic blood pressure 2022-11-05 18:15:00 72 mm[Hg] [facility] Heart rate 2022-11-05 18:15:00 71 /min [facility] Body height 2022-11-05 18:15:00 162.6 cm [facility] Body weight 2022-11-05 18:15:00 104.055 kg [facility] BMI 2022-11-05 18:15:00 39.38 kg/m2 [facility] Oxygen saturation in Arterial blood by Pulse oximetry 2022-11-05 18:15:00 100 /min [facility] Systolic blood pressure 2022-08-21 15:47:00 133 mm[Hg] [facility] Diastolic blood pressure 2022-08-21 15:47:00 85 mm[Hg] [facility] Heart rate 2022-08-21 15:46:00 70 /min [facility] Body temperature 2022-08-21 15:46:[address] [facility] [place] [place] Respiratory rate 2022-08-21 15:46:00 18 /min [facility] [place] [place] Body height 2022-08-21 15:46:00 162.6 cm [facility] Body weight 2022-08-21 15:46:00 101.833 kg [facility] BMI 2022-08-21 15:46:00 38.54 kg/m2 [facility] Oxygen saturation in Arterial blood by Pulse oximetry 2022-08-21 15:46:00 100 /min [facility] Systolic blood pressure 2022-06-01 19:43:00 134 mm[Hg] [facility] Diastolic blood pressure 2022-06-01 19:43:00 76 mm[Hg] [facility] Heart rate 2022-06-01 19:35:00 110 /min [facility] Body height 2022-06-01 19:35:00 162.6 cm [facility] Body weight 2022-06-01 19:35:00 100.653 kg [facility] BMI 2022-06-01 19:35:00 38.09 kg/m2 [facility] Oxygen saturation in Arterial blood by Pulse oximetry 2022-06-01 19:35:00 100 /min [facility] Systolic blood pressure 2022-05-03 19:11:00 152 mm[Hg] [facility] Diastolic blood pressure 2022-05-03 19:11:00 94 mm[Hg] [facility] Heart rate 2022-05-03 19:03:00 82 /min [facility] Body temperature 2022-05-03 19:03:[address] [facility] [place] [place] Body height 2022-05-03 19:03:00 162.6 cm [facility] Body weight 2022-05-03 19:03:00 101.334 kg [facility] BMI 2022-05-03 19:03:00 38.35 kg/m2 [facility] Oxygen saturation in Arterial blood by Pulse oximetry 2022-05-03 19:03:00 98 /min [facility] Systolic blood pressure 2022-05-01 15:15:00 148 mm[Hg] [facility] Diastolic blood pressure 2022-05-01 15:15:00 98 mm[Hg] [facility] Heart rate 2022-05-01 15:14:00 97 /min [facility] Body temperature 2022-05-01 15:14:[address] [facility] [place] [place] Respiratory rate 2022-05-01 15:14:00 18 /min [facility] [place] [place] Body height 2022-05-01 15:14:00 162.6 cm [facility] Body weight 2022-05-01 15:14:00 100.925 kg [facility] BMI 2022-05-01 15:14:00 38.19 kg/m2 [facility] Oxygen saturation in Arterial blood by Pulse oximetry 2022-05-01 15:14:00 98 /min [facility] Systolic blood pressure 2022-04-29 07:52:00 169 mm[Hg] [facility] Diastolic blood pressure 2022-04-29 07:52:00 96 mm[Hg] [facility] Heart rate 2022-04-29 07:52:00 103 /min [facility] Body temperature 2022-04-29 07:52:[address] [facility] [place] [place] Respiratory rate 2022-04-29 07:52:00 22 /min [facility] [place] [place] Body height 2022-04-29 07:52:00 162.6 cm [facility] Body weight 2022-04-29 07:52:00 95.255 kg [facility] BMI 2022-04-29 07:52:00 36.05 kg/m2 [facility] Oxygen saturation in Arterial blood by Pulse oximetry 2022-04-29 07:52:00 98 /min [facility] Systolic blood pressure 2022-01-31 16:33:00 144 mm[Hg] [facility] Diastolic blood pressure 2022-01-31 16:33:00 92 mm[Hg] [facility] Heart rate 2022-01-31 16:15:00 80 /min [facility] Body temperature 2022-01-31 16:15:[address] [facility] [place] [place] Respiratory rate 2022-01-31 16:15:00 18 /min [facility] [place] [place] Body height 2022-01-31 16:15:00 162.6 cm [facility] Body weight 2022-01-31 16:15:00 101.606 kg [facility] BMI 2022-01-31 16:15:00 38.45 kg/m2 [facility] Procedures Procedure Date / Time Performed Performing Clinician Source XR CHEST 2 VW 2024-09-17 15:36:15 [facility]ose [facility] RAPID STREP SCREEN FOR GROUP A 2024-02-22 04:14:[address] [facility] [place] INFLUENZA A/B RSV COVID NAAT 2024-02-22 04:14:[address] [facility] [place] XR CHEST 1 VW 2024-02-22 02:38:16 Yaquelin Elias [facility] MAGNESIUM 2024-02-22 02:12:00 Yaquelin Elias [facility] TROPONIN I 2024-02-22 02:12:00 Yaquelin Elias [facility] COMP. METABOLIC PANEL ([id number]) 2024-02-22 02:12:[address] [facility] [place] [place] CBC WITH DIFF 2024-02-22 02:12:00 Yaquelin Elias Sowmya [facility] URINALYSIS 2024-02-22 02:12:00 Yaquelin Elias [facility] N-TERMINAL PRO-BNP 2024-02-22 02:12:[address] [facility] [place] OCT, OPTIC NERVE - OU - BOTH EYES 2023-03-12 04:23:[address] [facility] [place] PATIENT QUESTIONNAIRE 2023-03-11 05:01:00 Doctor Unassigned, [place] [facility] [place] BI SELF-REQUESTED SCREENING TOMOSYNTHESIS BILATERAL 2023-02-25 16:55:[address] [facility] [place] [place] CT HEAD W CONTRAST 2023-01-31 14:02:[address] [facility] [place] [place] CT HEAD WO CONTRAST 2023-01-31 13:57:[address] [facility] [place] EMG/NCV 2023-01-25 05:01:00 Buck Dubose [facility] IR BIOPSY THYROID PERCUTANEOUS WITH ULTRASOUND 2023-01-18 14:52:[address] [facility] [place] [place] US HEAD NECK 2022-11-12 13:45:00 Manfred Navas [facility] FREE T4 2022-11-06 14:12:00 Buck Dubose [facility] THYROID STIMULATING HORMONE 2022-11-06 14:12:[address] [facility] [place] LIPID PANEL ([id number])(TOTAL CHOLESTEROL, TRIGLYCERIDES, HDL) 2022-11-06 14:12:[facility] (A1C) 2022-11-06 14:12:[address] [facility] [place] VITAMIN D, 25-OH 2022-11-06 14:12:00 Buck Dubose [facility] MEDICATION CORRESPONDENCE 2022-11-06 05:01:00 Do ctor Unassigned, [place] [facility] [place] AUTHORIZATION FOR RELEASE OF PHI 2022-08-21 05:01:00 Doctor Unassigned, [place] [facility] [place] [place] AUTHORIZATION FOR RELEASE OF PHI 2022-07-23 06:01:00 Doctor Unassigned, [place] [facility] [place] [place] FREE T4 2022-06-01 20:31:00 Buck Dubose [facility] THYROID STIMULATING HORMONE 2022-06-01 20:31:[address] [facility] [place] INSURANCE CORRESPONDENCE 2022-05-10 06:01:00 Doc tor Unassigned, [place] [facility] [place] [place] CBC WITH DIFF 2022-05-03 19:55:00 Buck Dubose [facility] COMP. METABOLIC PANEL ([id number]) 2022-05-03 19:55:[address] [facility] [place] [place] XR CHEST 2 VW 2022-05-01 15:40:00 Real Hsieh [facility] POCT MOLECULAR STREP 2022-05-01 15:18:00 Unknown, Atte gagan [facility] [place] [place] CONSENT/REFUSAL FOR DIAGNOSIS AND TREATMENT 2022-04-29 07:46:51 Doctor Unassigned, [place] [facility] [place] [place] Encounters Start Date/Time End Date/Time Encounter Type Admission Type Attending Clinicians Care Facility Care Department Encounter ID Source 2021-04-02 18:33:52 Emergency [facility] [id number] [facility] 2021-04-01 17:50:44 Emergency [facility] [id number] [facility] 2021-04-01 14:33:08 Emergency [facility] [id number] [facility] 2021-03-30 23:03:24 Emergency [facility] [id number] [facility] 2024-09-17 10:26:54 2024-09-17 23:59:00 Hospital Encounter Buck [facility] 1.2.840.114 350.1.13.10 4.2.7.2.[id number] [facility] 2024-09-17 10:45:00 2024-09-17 11:00:00 Animal Services Officer Visit Lab, Ang - Buck Rowley Lab, Ang - Ceasar [facility] OFF[facility] 1.2.840.114 350.1.13.10 4.2.7.2.[id number] [facility] 2024-09-17 10:30:00 2024-09-17 10:30:00 Office Visit Marysol Dubosea [facility] YULI?[facility] MED[facility] OFF[facility] BU[facility] 1.2.840.114 350.1.13.10 4.2.7.2.[id number] [facility] 2024-09-17 10:30:00 2024-09-17 10:28:26 Outpatient R BUCK DUBOSE [facility] [id number] [facility] 2024-02-18 00:00:00 2024-03-21 18:23:15 Patient Secure Msg Doctor Unassigned, [place] Doctor Unassigned, [place] [email or web address] [place] [facility] 1.2.840.114 350.1.13.10 4.2.7.2.[id number] [facility] 2024-02-21 20:38:00 2024-02-22 00:33:00 Emergency X Yaquelin ELIAS K [facility] [[email or web address]] ERT [id number] [facility] 2024-02-21 20:38:00 2024-02-22 00:33:00 Emergency CurtYaquelin philippe [facility] [[email or web address] AT [facility] 1.2.840.114 350.1.13.10 4.2.7.2.[id number] [facility] 2024-01-30 14:00:00 2024-01-30 14:00:00 Outpatient R BUCK DUBOSE [facility] [id number] [facility] 2024-01-30 13:30:00 2024-01-30 14:00:00 Office Visit Buck Dubose [facility] MED[facility] OFF[facility] BU[facility] 1..840.114 350.1.13.10 4.2.7.2.[id number] [facility] 2023-05-08 11:00:00 2023-05-08 11:00:00 Outpatient R MANFRED NAVAS YU [facility] [id number] [facility] 2023-05-03 10:15:00 2023-05-03 10:15:00 Outpatient R NATALY LAGUNA [facility] [id number] [facility] 2023-03-11 08:30:00 2023-03-11 09:56:04 Outpatient R ZHANNA WALTERS RENUKA [facility] [id number] [facility] 2023-03-11 08:30:00 2023-03-11 09:56:04 Office Visit Mariuszjose martin Zhanna [facility] 1.2840.114 350.1.13.10 4.2.7.2.[id number] [facility] 2023-03-11 00:00:00 2023-03-11 00:00:00 Orders Only Doctor Unassigned, [place] [facility] 1.2840.114 350.1.13.10 4.2.7.2.[id number] [facility] 2023-03-08 11:45:00 2023-03-08 11:45:00 Outpatient R NATALY LAGUNA [facility] [id number] [facility] 2023-02-25 10:47:45 2023-02-25 23:59:00 Outpatient R EDUARDO PARK [facility] [id number] [facility] 2023-02-25 10:47:45 2023-02-25 23:59:00 Hospital Encounter Eduardo Park [facility] 1.2.840.114 350.1.13.10 4.2.7.2.[id number] [facility] 2023-01-31 08:09:02 2023-01-31 23:59:00 Hospital Encounter Sourav Ortiz [facility] 1.2.840.114 350.1.13.10 4.2.7.2.[id number] [facility] 2023-01-31 08:08:46 2023-01-31 08:08:46 Outpatient SOURAV PERALES HOWARD [facility] [id number] [facility] 2023-01-31 08:08:46 2023-01-31 08:08:46 Hospital Encounter Sourav Ortiz [facility] 1.840.114 350.1.13.10 4.2.7.2.[id number] [facility] 2023-01-31 00:00:00 2023-01-31 00:00:00 Buck Lay [facility] 1.840.114 350.1.13.10 4.2.7.2.[id number] [facility] 2023-01-29 00:00:00 2023-01-29 00:00:00 Patient Secure Msg Doctor Unassigned, [place] [facility] 1.840.114 350.1.13.10 4.2.7.2.[id number] [facility] 2023-01-28 00:00:00 2023-01-28 00:00:00 Telephone Manfred Navas [facility] [[email or web address] 1.0.114 350.1.13.10 4.2.7.2.[id number] [facility] 2023-01-25 07:20:28 2023-01-25 23:59:00 [facility] [id number] [facility] 2023-01-25 07:20:28 2023-01-25 23:59:00 Hospital Encounter Daxreji Amie [facility] MED[facility] OFF[facility] BUILD[facility] 1.0.114 350.1.13.10 4.2.7.2.[id number] [facility] 2023-01-24 00:00:00 2023-01-24 00:00:00 Patient Secure Msg Manfred Navas [facility] 1.840.114 350.1.13.10 4.2.7.2.[id number] [facility] 2023-01-18 08:30:44 2023-01-18 23:59:00 Outpatient R MANFRED NAVAS YU [facility] [id number] [facility] 2023-01-18 08:30:44 2023-01-18 23:59:00 Hospital Encounter Manfred Navas [facility] 1.114 350.1.13.10 4.2.7.2.[id number] [facility] 2023-01-17 08:28:40 2023-01-17 23:59:00 Hospital Encounter Sourav Ortiz [facility] 1.114 350.1.13.10 4.2.7.2.[id number] [facility] 2023-01-17 00:00:00 2023-01-17 23:59:00 Outpatient SOURAV PERALES HOWARD [facility] [id number] [facility] 2023-01-17 00:00:00 2023-01-17 00:00:00 Telephone Sourav Ortiz Gareth [facility] 1.114 350.1.13.10 4.2.7.2.[id number] [facility] 2022-12-21 00:00:00 2022-12-21 00:00:00 Refvioleta Sedrick [facility] 1.114 350.1.13.10 4.2.7.2.[id number] [facility] 2022-12-12 00:00:00 2022-12-12 00:00:00 Refill Sedrick [facility] YULI?[facility] MED[facility] OFF[facility] BUILD[facility] 1.114 350.1.13.10 4.2.7.2.[id number] [facility] 2022-11-23 08:40:00 2022-11-23 10:09:36 Outpatient R SOURAV ORTIZ HOWARD [facility] [id number] [facility] 2022-11-23 08:40:00 2022-11-23 10:09:36 Office Visit Sourav Ortiz [facility] BU[facility] 1.2.840.114 350.1.13.10 4.2.7.2.[id number] [facility] 2022-11-19 00:00:00 2022-11-19 00:00:00 Telephone [facility] 1.2.840.114 350.1.13.10 4.2.7.2.[id number] [facility] 2022-11-19 00:00:00 2022-11-19 00:00:00 Refill Sedrick [facility] YULI?[facility] MED[facility] OFF[facility] BUILDING 1.2.840.114 350.1.13.10 4.2.7.2.[id number] [facility] 2022-11-17 00:00:00 2022-11-17 00:00:00 Telephone Manfred Navas [email or web address] 1.2.840.114 350.1.13.10 4.2.7.2.[id number] [facility] 2022-11-14 09:30:00 2022-11-14 09:56:49 Outpatient R KHUSHBU ARAUZ [facility] [id number] [facility] 2022-11-14 09:30:00 2022-11-14 09:56:49 Office Visit Khushbu Arauz [facility] OFF[facility] BUILD[facility] 1.2.840.114 350.1.13.10 4.2.7.2.[id number] [facility] 2022-11-14 00:00:00 2022-11-14 00:00:00 Telephone Khushbu Arauz [facility] YULI?[facility] 1.2.840.114 350.1.13.10 4.2.7.2.[id number] [facility] 2022-11-14 00:00:00 2022-11-14 00:00:00 Refill Armida Dubosethia [facility] Y[facility]I?[facility] MED[facility] OFF[facility] BU[facility] 1.2.840.114 350.1.13.10 4.2.7.2.[id number] [facility] 2022-11-14 00:00:00 2022-11-14 00:00:00 Patient Secure Msg [facility] 1..840.114 350.1.13.10 4.2.7.2.[id number] [facility] 2022-11-12 07:27:30 2022-11-12 23:59:00 Outpatient R MANFRED NAVAS YU [facility] [id number] [facility] 2022-11-12 07:27:30 2022-11-12 23:59:00 Hospital Encounter Manfred Navas [facility] 1.840.114 350.1.13.10 4.2.7.2.[id number] [facility] 2022-11-07 11:30:00 2022-11-07 12:01:03 Outpatient R MANFRED NAVAS YU [facility] [id number] [facility] 2022-11-07 11:30:00 2022-11-07 12:01:03 Office Visit Manfred Navas [facility] MED[facility] OFF[facility] BUILD[facility] 1.840.114 350.1.13.10 4.2.7.2.[id number] [facility] 2022-11-07 00:00:00 2022-11-07 00:00:00 Telephone [facility] MED[facility] OFF[facility] BUILD[facility] 1.840.114 350.1.13.10 4.2.7.2.[id number] [facility] 2022-11-07 00:00:00 2022-11-07 00:00:00 Patient Outreach [facility] MED[facility] OFF[facility] BUILD[facility] 1.84.114 350.1.13.10 4.2.7.2.[id number] [facility] 2022-11-06 09:00:00 2022-11-06 09:15:21 Animal Services Officer Visit Lab, Yosef Mcdonough Sedrick [facility] YULI?[facility] MED[facility] OFF[facility] BUILDING 1.84.114 350.1.13.10 4.2.7.2.[id number] [facility] 2022-11-06 09:00:00 2022-11-06 09:00:00 Outpatient R ARMIDA DUBOSETHIA [facility] [id number] [facility] 2022-11-06 00:00:00 2022-11-06 00:00:00 Telephone Sedrick [facility] YULI?[facility] MED[facility] OFFICE BUILDING 1.84.114 350.1.13.10 4.2.7.2.[id number] [facility] 2022-11-06 00:00:00 2022-11-06 00:00:00 Orders Only Doctor Unassigned, [place] [facility] 1.0.114 350.1.13.10 4.2.7.2.[id number] [facility] 2022-11-05 13:30:00 2022-11-05 14:38:53 Outpatient R BUCK DUBOSE [facility] [id number] [facility] 2022-11-05 13:30:00 2022-11-05 14:38:53 [facility] MEDICAL OFFICE BUILDING 1.84114 350.1.13.10 4.2.7.2.[id number] [facility] 2022-11-05 00:00:00 2022-11-05 00:00:00 Patient Secure Msg [facility] MED[facility] OFF[facility] BUILD[facility] 1.84.114 350.1.13.10 4.2.7.2.[id number] [facility] 2022-10-31 09:45:00 2022-10-31 09:45:00 Outpatient R MAMADOU JOAQUIN [facility] [id number] [facility] 2022-10-30 00:00:00 2022-10-30 00:00:00 Refill Armida [facility] MED[facility] OFF[facility] BUILD[facility] 1.84.114 350.1.13.10 4.2.7.2.[id number] [facility] 2022-10-25 00:00:00 2022-10-25 00:00:00 Refill Armida [facility]Former[facility] MED[facility] OFF[facility] BUILD[facility] 1.84.114 350.1.13.10 4.2.7.2.[id number] [facility] 2022-10-25 00:00:00 2022-10-25 00:00:00 Refill [facility]sol [facility]FirstHealthLACEY [facility] MED[facility] OFF[facility] BUILD[facility] 1.840.114 350.1.13.10 4.2.7.2.[id number] [facility] 2022-10-20 00:00:00 2022-10-20 00:00:00 [facility] 1.2840.114 350.1.13.10 4.2.7.2.[id number] [facility] 2022-10-15 00:00:00 2022-10-15 00:00:00 Jose Dubose [facility] OFF[facility] BUILD[facility] 1.2840.114 350.1.13.10 4.2.7.2.[id number] [facility] 2022-09-08 00:00:00 2022-09-08 00:00:00 Jose Kat Contreras [facility] OFF[facility] BUILDING 1.2840.114 350.1.13.10 4.2.7.2.[id number] [facility] 2022-09-05 00:00:00 2022-09-05 00:00:00 Patient Secure Msg Doctor Unassigned, [place] [facility] 1.2840.114 350.1.13.10 4.2.7.2.[id number] [facility] 2022-09-04 00:00:00 2022-09-04 00:00:00 Patient Secure Msg Vani Dominguez [facility] 1.0.114 350.1.13.10 4.2.7.2.[id number] [facility] 2022-08-21 13:30:00 2022-08-21 13:30:00 Outpatient R BUCK DUBOSE [facility] [id number] [facility] 2022-08-21 10:30:00 2022-08-21 11:31:07 Outpatient R DAJA SHAH [facility] [id number] [facility] 2022-08-21 10:30:00 2022-08-21 11:31:07 Office Visit Daja Shah Hellen [facility] Y[facility] MED[facility] OFF[facility] BUILDING 1.840.114 350.1.13.10 4.2.7.2.[id number] [facility] 2022-08-21 00:00:00 2022-08-21 00:00:00 Telephone Armida Dubosethia [facility] Y[facility]I?[facility] MED[facility] OFF[facility] BUILDING 1.84.114 350.1.13.10 4.2.7.2.[id number] [facility] 2022-08-21 00:00:00 2022-08-21 00:00:00 Orders Only Doctor Unassigned, [place] [facility] 1.840.114 350.1.13.10 4.2.7.2.[id number] [facility] 2022-08-21 00:00:00 2022-08-21 00:00:00 Telephone [facility] MED[facility] OFF[facility] BUILDING 1.840.114 350.1.13.10 4.2.7.2.[id number] [facility] 2022-08-14 00:00:00 2022-08-14 00:00:00 Refill [facility] MED[facility] OFF[facility] BUILDING 1.84.114 350.1.13.10 4.2.7.2.[id number] [facility] 2022-07-23 00:00:00 2022-07-23 00:00:00 Orders Only Doctor Unassigned, [place] [facility] 1.2840.114 350.1.13.10 4.2.7.2.[id number] [facility] 2022-07-20 00:00:00 2022-07-20 00:00:00 Refill Doctor Unassigned, [place] [facility] Y[facility] MED[facility] OFF[facility] BUILDING 1.2840.114 350.1.13.10 4.2.7.2.[id number] [facility] 2022-07-20 00:00:00 2022-07-20 00:00:00 Refill SedrickBuck [facility] Y[facility]I?[facility] MED[facility] OFF[facility] BUILDING 1.2840.114 350.1.13.10 4.2.7.2.[id number] [facility] 2022-07-17 00:00:00 2022-07-17 00:00:00 Refill Rolly Perez [facility] OFF[facility]ILD[facility] 1.2840.114 350.1.13.10 4.2.7.2.[id number] [facility] 2022-06-25 00:00:00 2022-06-25 00:00:00 Refill SedrickArmidaBuckFormerly [facility] OFF[facility] BUILD[facility] 1.2840.114 350.1.13.10 4.2.7.2.[id number] [facility] 2022-06-06 00:00:00 2022-06-06 00:00:00 Telephone Sedrick BuckFormer[facility] OFF[facility] BUILD[facility] 1.2840.114 350.1.13.10 4.2.7.2.[id number] [facility] 2022-06-01 14:30:00 2022-06-01 14:44:18 Animal Services Officer Visit Lab, Ang - Db Anene, [facility] 1.2840.114 350.1.13.10 4.2.7.2.[id number] [facility] 2022-06-01 13:30:00 2022-06-01 14:25:12 Outpatient R BUCK DUBOSE [facility] [id number] [facility] 2022-06-01 13:30:00 2022-06-01 14:25:12 Office Visit Armida [facility] 1.20.114 350.1.13.10 4.2.7.2.[id number] [facility] 2022-05-31 00:00:00 2022-05-31 00:00:00 Telephone Marysol DuboseFirstHealthLACEY [facility]AN?[facility] 1.20.114 350.1.13.10 4.2.7.2.[id number] [facility] 2022-05-11 00:00:00 2022-05-11 00:00:00 Telephone Buck Dubose [facility] 1.20.114 350.1.13.10 4.2.7.2.[id number] [facility] 2022-05-10 00:00:00 2022-05-10 00:00:00 Telephone [facility]ILD[facility] 1.20.114 350.1.13.10 4.2.7.2.[id number] [facility] 2022-05-10 00:00:00 2022-05-10 00:00:00 Orders Only Doctor Unassigned, [place] [facility] 1.2840.114 350.1.13.10 4.2.7.2.[id number] [facility] 2022-05-07 00:00:00 2022-05-07 00:00:00 Telephone [facility] 1.2.840.114 350.1.13.10 4.2.7.2.[id number] [facility] 2022-05-03 13:45:00 2022-05-03 14:00:00 Animal Services Officer Visit Lab, Ang - Db [facility]ida [facility] OFF[facility]ILD[facility] 1.2.840.114 350.1.13.10 4.2.7.2.[id number] [facility] 2022-05-03 13:00:00 2022-05-03 13:47:06 [id number] 2022-05-03 13:00:00 2022-05-03 13:47:06 Office Visit [facility] 1.2.840.114 350.1.13.10 4.2.7.2.[id number] [facility] 2022-05-01 09:33:06 2022-05-01 23:59:00 Hospital Encounter BradReal ko [facility] Y[facility]I?[facility] 1.2.840.114 350.1.13.10 4.2.7.2.[id number] [facility] 2022-05-01 09:20:00 2022-05-01 09:53:13 Outpatient R YOCASTA HSIEHSHARMIN [facility] [id number] [facility] 2022-05-01 09:20:00 2022-05-01 09:53:13 Urgent Care Jori Yocastasharmin Choi, Attending [facility] 1..840.114 350.1.13.10 4.2.7.2.[id number] [facility] 2022-04-29 02:09:00 2022-04-29 02:26:00 Emergency X MAUDE WELLS [email or web address] ERT [id number] [facility] 2022-04-29 02:09:00 2022-04-29 02:26:00 Emergency Maude Wells S [facility] 1..840.114 350.1.13.10 4.2.7.2.[id number] [facility] 2022-04-16 09:30:00 2022-04-16 09:30:00 Outpatient R EDUARDO [facility] [id number] [facility] 2022-02-21 10:00:00 2022-02-21 10:00:00 Outpatient R MEHRAN BERG CHERYAL [facility] [id number] [facility] 2022-02-01 00:00:00 2022-02-01 00:00:00 Patient Secure Eduardo [facility] 1..840.114 350.1.13.10 4.2.7.2.[id number] [facility] 2022-01-31 11:15:00 2022-01-31 12:00:09 Outpatient R EDUARDO [facility] [id number] [facility] 2022-01-31 11:15:00 2022-01-31 12:00:09 Office Visit Eduardo Park [facility] 1..840.114 350.1.13.10 4.2.7.2.[id number] [facility] 2022-01-31 09:00:00 2022-01-31 09:00:00 Outpatient R JALEELMEHRAN MORIN OTIS FRANKTISH [facility] [id number] [facility] 2022-01-07 19:49:00 2022-01-07 22:41:00 Emergency X Yaquelin ELIAS [facility] [[email or web address]] ERT [id number] [facility] 2022-01-07 19:49:00 2022-01-07 22:41:00 Emergency Yaquelin Elias Sowmya [facility] 1..840.114 350.1.13.10 4.2.7.2.[id number] [facility] 2021-12-21 00:00:00 2021-12-21 00:00:00 Bandar Dillard [facility] 1..840.114 350.1.13.10 4.2.7.2.[id number] [facility] 2021-09-22 08:30:00 2021-09-22 09:39:42 Outpatient R JALEELMEHRAN MORIN OTIS [place] [facility] [id number] [facility] 2021-09-22 08:30:00 2021-09-22 09:39:42 Office Visit Otis Mehran [facility] 1..840.114 350.1.13.10 4.2.7.2.[id number] [facility] 2021-09-22 08:30:00 2021-09-22 08:30:00 Outpatient R OTIS FRANKTISH MEHRAN BERG [facility] [id number] [facility] 2021-09-20 21:12:00 2021-09-21 00:40:00 Emergency X TOMÁS ISABEL [facility] [[email or web address]] ERT [id number] [facility] 2021-09-20 21:12:00 2021-09-21 00:40:00 Emergency Tomás Isabel [facility] 1.840.114 350.1.13.10 4.2.7.2.[id number] [facility] 2021-09-20 21:12:00 2021-09-21 00:40:00 Emergency X TOMÁS ISABEL [facility] [[email or web address]] ERT [id number] [facility] 2021-09-20 09:00:00 2021-09-20 09:00:00 Outpatient R LISSETTE NARAYANAN [facility] [id number] Justus s [facility] 2021-09-20 00:00:00 2021-09-20 00:00:00 Orders Only Doctor Unassigned, [place] [facility] 1.84.114 350.1.13.10 4.2.7.2.[id number] [facility] 2021-09-19 11:00:00 2021-09-19 11:50:07 Office Visit Mehran Berg [facility] 1.84.114 350.1.13.10 4.2.7.2.[id number] [facility] 2021-09-19 11:00:00 2021-09-19 11:50:07 Outpatient R MEHRAN BERG CHERYAL [facility] [id number] [facility] 2021-09-19 11:00:00 2021-09-19 11:00:00 Outpatient R MEHRAN BERG CHERYAL [facility] [id number] [facility] 2021-07-14 00:00:00 2021-07-14 00:00:00 Bandar Dillard [facility] 1.840.114 350.1.13.10 4.2.7.2.[id number] [facility] 2021-07-05 09:00:00 2021-07-05 09:00:00 Outpatient LISSETTE MCKEON [facility] [id number] Justus arreola [facility] 2021-06-30 00:00:00 2021-06-30 00:00:00 Refill Ayo Mastersonful A [facility] 1.2.840.114 350.1.13.10 4.2.7.2.[id number] [facility] 2021-06-28 00:00:00 2021-06-28 00:00:00 Telephone ZelalemBetzaida berriosdiful A [facility] 1.2.840.114 350.1.13.10 4.2.7.2.[id number] [facility] 2021-06-27 00:00:00 2021-06-27 00:00:00 Refill Betzaida Mastersondiful A [facility] 1.2.840.114 350.1.13.10 4.2.7.2.[id number] [facility] 2021-06-26 00:00:00 2021-06-26 00:00:00 Telephone Ayo Mastersonful A [facility] 1.2840.114 350.1.13.10 4.2.7.2.[id number] [facility] 2021-06-26 00:00:00 2021-06-26 00:00:00 Orders Only Doctor Unassigned, [place] [facility] 1.2840.114 350.1.13.10 4.2.7.2.[id number] [facility] 2021-06-24 00:00:00 2021-06-24 00:00:00 Patient Secure Msg BrightwoodBetzaida berriosdiful A [facility] 1.2.840.114 350.1.13.10 4.2.7.2.[id number] [facility] 2021-06-24 00:00:00 2021-06-24 00:00:00 Patient Secure Msg Bandar Masterson [facility] 1.2.840.114 350.1.13.10 4.2.7.2.[id number] [facility] 2021-06-22 13:30:00 2021-06-22 14:19:39 Office Visit Bandar Masterson [facility] 1.2.840.114 350.1.13.10 4.2.7.2.[id number] [facility] 2021-06-22 13:30:00 2021-06-22 14:19:39 Outpatient R BANDAR MASTERSON [facility] [id number] [facility] 2021-06-22 13:30:00 2021-06-22 13:30:00 Outpatient R BANDAR MASTERSON [facility] [id number] [facility] 2021-06-14 09:00:00 2021-06-14 09:00:00 Outpatient R LISSETTE NARAYANAN [facility] [id number] [facility] 2021-05-24 07:45:06 2021-05-24 23:59:00 Hospital Encounter Eduardo Park [facility] 1..840.114 350.1.13.10 4.2.7.2.[id number] [facility] 2021-05-24 07:44:50 2021-05-24 07:44:50 Outpatient R PARK CLARK [facility] [id number] [facility] 2021-05-24 07:44:50 2021-05-24 07:44:50 Hospital Encounter Park Clark [facility] 1.2840.114 350.1.13.10 4.2.7.2.[id number] [facility] 2021-04-19 00:00:00 2021-04-19 00:00:00 Patient Secure Msg Doctor Unassigned, [place] [facility] 1.20.114 350.1.13.10 4.2.7.2.[id number] [facility] 2021-04-13 09:30:00 2021-04-13 09:59:21 Outpatient R EDUARDO [facility] [id number] [facility] 2021-04-13 08:52:36 2021-04-13 09:59:21 Office Visit Eduardo [facility] 1.284.114 350.1.13.10 4.2.7.2.[id number] [facility] 2021-04-13 09:30:00 2021-04-13 09:30:00 Outpatient R EDUARDO [facility] [id number] [facility] 2021-04-13 00:00:00 2021-04-13 00:00:00 Orders Only Doctor Unassigned, [place] [facility] 1.284114 350.1.13.10 4.2.7.2.[id number] [facility] 2020-10-12 05:20:00 2020-10-12 06:48:00 Emergency Nick Freire [facility] 1.284.114 350.1.13.10 4.2.7.2.[id number] [facility] 2020-09-12 00:00:00 2020-09-12 00:00:00 Telephone Bandar Masterson [facility] Office Building One 1.2840.114 350.1.13.10 4.2.7.2.[id number] [facility] 2020-09-10 00:00:00 2020-09-10 00:00:00 Orders Only Doctor Unassigned, [place] [facility] 1.2.840.114 350.1.13.10 4.2.7.2.[id number] [facility] 2020-08-18 00:00:00 2020-08-18 00:00:00 Patient Outreach Ramin Terrazas [email or web address] 1.2840.114 350.1.13.10 4.2.7.2.[id number] [facility] 2020-08-13 00:00:00 2020-08-13 00:00:00 Orders Only Doctor Unassigned, [place] [facility] 1.2840.114 350.1.13.10 4.2.7.2.[id number] [facility] 2020-08-01 00:00:00 2020-08-01 00:00:00 Telephone Bandar Masterson [facility] Office Building One 1.2840.114 350.1.13.10 4.2.7.2.[id number] [facility] 2020-07-30 00:00:00 2020-07-30 00:00:00 Orders Only Doctor Unassigned, [place] [facility] 1.2.840.114 350.1.13.10 4.2.7.2.[id number] [facility] 2020-07-04 00:00:00 2020-07-04 00:00:00 Orders Only Doctor Unassigned, [place] [facility] 1.2.840.114 350.1.13.10 4.2.7.2.[id number] [facility] 2020-06-20 11:35:00 2020-06-20 14:20:00 Emergency Alisa Ridley [facility] 1.840.114 350.1.13.10 4.2.7.2.[id number] [facility] 2020-06-20 11:00:00 2020-06-20 11:00:00 Outpatient R BETTY [facility] [place] [place] [id number] [facility] 2020-06-20 10:36:19 2020-06-20 10:51:19 Nurse Visit Nurse, Yosef Urgent Valarie Payne [facility] Office Building One .84.114 350.1.13.10 4.2.7.2.[id number] [facility] 2020-06-20 10:45:00 2020-06-20 10:45:00 Outpatient Fadi PAYNE [facility] [place] [id number] [facility] 2020-06-04 18:41:00 2020-06-04 20:59:00 Emergency Camille Saucedo [facility] 1.114 350.1.13.10 4.2.7.2.[id number] [facility] 2020-06-04 18:40:00 2020-06-04 19:00:00 Urgent Care Provider, [facility] Torito [facility] Office Building One .114 350.1.13.10 4.2.7.2.[id number] [facility] 2020-06-04 18:40:00 2020-06-04 18:40:00 Outpatient Fadi UGARTE LEN [facility] [id number] [facility] 2020-06-04 18:19:59 2020-06-04 18:34:59 Nurse Visit Nurse, [facility] Len Ugarte [facility] Office Building One 1.114 350.1.13.10 4.2.7.2.[id number] [facility] 2020-06-03 00:00:00 2020-06-03 00:00:00 Patient Secure Msg Bandar Masterson [facility] OFFICE BUILDING ONE 1.114 350.1.13.10 4.2.7.2.[id number] [facility] 2020-04-25 00:00:00 2020-04-25 00:00:00 Patient Secure Msg Doctor Unassigned, [place] [facility] 1.114 350.1.13.10 4.2.7.2.[id number] [facility] 2020-04-13 09:19:03 2020-04-13 11:09:56 Office Visit Park Clark [facility] Building 1.114 350.1.13.10 4.2.7.2.[id number] [facility] 2020-04-13 09:30:00 2020-04-13 09:30:00 Outpatient R PARK CLARK [facility] [id number] [facility] 2020-04-13 00:00:00 2020-04-13 00:00:00 Orders Only Doctor Unassigned, [place] [facility] 1.114 350.1.13.10 4.2.7.2.[id number] [facility] 2020-03-18 00:00:00 2020-03-18 00:00:00 RefZana Robledo [facility] Office Building One 1.2.840.114 350.1.13.10 4.2.7.2.[id number] [facility] 2020-03-01 00:00:00 2020-03-01 00:00:00 RefBandar Smyth [facility] Office Building One 1.840.114 350.1.13.10 4.2.7.2.[id number] [facility] 2020-01-28 00:00:00 2020-01-28 00:00:00 Refill Bandar Masterson [facility] Office Building One 1..114 350.1.13.10 4.2.7.2.[id number] [facility] 2019-12-31 00:00:00 2019-12-31 00:00:00 Refill Bandar Masterson [facility] Office Building One 1.114 350.1.13.10 4.2.7.2.[id number] [facility] 2019-12-07 14:15:00 2019-12-07 14:15:00 Outpatient R ZELALEMBETZAIDA BERRIOSKAMIRUPERT [facility] [id number] [facility] 2019-12-07 13:40:37 2019-12-07 14:03:49 Nurse Visit Nurse, [facility] Musa MetcalfBandar berrios [facility] Building 1..114 350.1.13.10 4.2.7.2.[id number] [facility] 2019-11-26 00:00:00 2019-11-26 00:00:00 Bandar Dillard [facility] Office Building One 1.0.114 350.1.13.10 4.2.7.2.[id number] [facility] 2019-10-25 00:00:00 2019-10-25 00:00:00 RefBandar Smyth [facility] Office Building One 1..114 350.1.13.10 4.2.7.2.[id number] [facility] 2019-10-20 00:00:00 2019-10-20 00:00:00 Patient Secure Bandar Mccracken [facility] nal Building 1..114 350.1.13.10 4.2.7.2.[id number] [facility] 2019-10-18 00:00:00 2019-10-18 00:00:00 RefBandar Smyth [facility] Office Building One 1.114 350.1.13.10 4.2.7.2.[id number] [facility] 2019-10-12 00:00:00 2019-10-12 00:00:00 Outpatient DUNG JACOME [facility] [id number] [facility] 2019-10-12 00:00:00 2019-10-12 00:00:00 Orders Only Doctor Unassigned, [place] [facility] 1..114 350.1.13.10 4.2.7.2.[id number] [facility] 2019-10-11 00:00:00 2019-10-11 00:00:00 RefBandar Smyth [facility] Office Building One 1..114 350.1.13.10 4.2.7.2.[id number] [facility] 2019-09-24 00:00:00 2019-09-24 00:00:00 Telephone Zana Espino [facility] Office Building One 1..114 350.1.13.10 4.2.7.2.[id number] [facility] 2019-09-23 10:59:11 2019-09-23 13:08:27 Urgent Care Pob1, Acute Care Clinic Kelly Figueroa [facility] Office Building One 1.114 350.1.13.10 4.2.7.2.[id number] [facility] 2019-09-23 11:40:00 2019-09-23 11:40:00 Outpatient R [facility] [id number] [facility] 2019-09-03 08:15:00 2019-09-03 08:15:00 Outpatient R BANDAR MASTERSON [facility] [id number] [facility] 2019-09-03 06:53:39 2019-09-03 07:08:39 Telemedici ne Visit Bandar Masterson [facility] Building 1.114 350.1.13.10 4.2.7.2.[id number] [facility] 2019-07-09 12:18:27 2019-07-09 13:36:48 Office Visit Bandar Masterson Kim [facility] Office Building One .114 350.1.13.10 4.2.7.2.[id number] [facility] 2019-07-06 19:34:58 2019-07-06 20:27:26 Urgent Care Green, Len Unknown, Attending [facility] 1.114 350.1.13.10 4.2.7.2.[id number] [facility] 2019-07-06 13:19:13 2019-07-06 14:00:16 Nurse Visit Nurse, Adc Fam Pob I Bandar Masterson [facility] Office Building One 1.114 350.1.13.10 4.2.7.2.[id number] [facility] 2019-06-22 00:00:00 2019-06-22 00:00:00 Refill Bandar Masterson [facility] hospital Professio nal Office [facility] One 1.2.840.114 350.1.13.10 4.2.7.2.[id number] [facility] 2019-05-14 12:54:03 2019-05-14 23:59:00 Outpatient R BANDAR MASTERSON [facility] [id number] [facility] Results Test Description Test Time Test Comments Results Resul t Comments Source XR Chest 2 2024-09-01 7 20:38:14 EXAM:XR CHEST 2 HISTORY: 44 years-old Female; Indication for study: persistent cough COMPARISON: Chest radiograph dated 02/21/2024 TECHNIQUE: Frontal and lateral chest radiographs were obtained. FINDINGS: Lungs/Pleura: Adequate lung volume. The lungs are clear with no focalconsolidation. There is no pleural effusion or pneumothorax. Heart/Mediastinum: The cardiomediastinal silhouette is normal. Bones and soft tissues: No acute abnormality detected. [facility] [place] [place] XR CHEST 1 2024-02-03 1 03:26:28 Ordering physician:Yaquelin ELIAS CLINICAL HISTORY: ? ?chest pain TECHNIQUE: Single view of the chest COMPARISON: ?05/01/2022 FINDINGS: No focal infiltrate, pleural effusion, or pneumothorax. Thecardiomediastinal silhouette is normal. The upper abdomen is unremarkable.No acute osseous abnormality. [facility] [id number] 02:59:33* Test Item Value Reference Range Interpretation Comme nts NT-proBNP (test code = 40811-5) 23 pg/mL <=125 Lab Interpretation (test cod e = 67333-3) Normal [facility] [place]Magnesium2024-09-21 02:50:30* Test Item Value Reference Range Interpretation Comme nts MAGNESIUM (test code = 4326905082) 1.8 mg/dL 1.7-2.4 Lab Interpretation (test cod e = 73800-4) Normal [facility] [place]. Metabolic Panel (76187)2024-02-22 02:50:10* Test Item Value Reference Range Interpretation Comme nts NA (test code = 2164622015) 137 mmol/L 135-145 K (test code = 4877211703) 3.2 mmol/L 3.5-5.0 L CL (test code = 2952431109) 102 mmol/L 98-108 CO2 TOTAL (test code = 5937892473) 25 mmol/L 23-31 AGAP (test code = 7341329252) 10 2-16 BUN (test code = 1246870994) 8 mg/dL 7-23 GLUCOSE (test code = 3953486295) 110 mg/dL 70-110 CREATININE (test code = 2160-0) 0.76 mg/dL 0.50-1.04 TOTAL BILI (test code = 3143635628) 1.0 mg/dL 0.1-1.1 CALCIUM (test code = 8974771784) 9.0 mg/dL 8.6-10.6 T PROTEIN (test code = 5665597256) 7.8 g/dL 6.3-8.2 ALBUMIN (test code = 4785829661) 4.5 g/dL 3.5-5.0 ALK PHOS (test code = 8390246534) 85 U/L 34-122 ALTv (test code = 1742-6) 33 U/L 5-35 AST(SGOT) (test code = 9993169457) 29 U/L 13-40 eGFR (test code = 48085-4) 99.9 mL/min/1.73m2 CKD-EPI eGFR (2020). Assuming creatinine has been stable day-to-day for at least three months, the eGFR indicates Category G1 (>= 90 mL/min/1.73 m2) Lab Interpretation (test code = 02419-3) Abnormal [facility] with [id number] 02:44:49* Test Item Value Reference Range Interpretation Comme nts WBC (test code = 6690-2) 12.79 4.30-11.10 H RBC (test code = 789-8) 5.53 3.93-5.25 H HGB (test code = 718-7) 9.7 g/dL 11.6-15.0 L HCT (test code = 4544-3) 34.1 % 35.7-45.2 L MCV (test code = 787-2) 61.7 fL 80.6-95.5 L MCH (test code = 785-6) 17.5 pg 25.9-32.8 L MCHC (test code = 786-4) 28.4 g/dL 31.6-35.1 L RDW-SD (test code = 83844-6) 40.2 fL 39.0-49.9 RDW-CV (test code = 788-0) 19.7 % 12.0-15.5 H PLT (test code = 777-3) 572 166-358 H MPV (test code = 71012-9) 9.3 fL 9.5-12.9 L NRBC/100 WBC (test code = 3501097148) 0.0 0.0-10.0 NRBC x10^3 (test code = 8600338940) See_Comment [Automated messa ge] The system which generated this result transmitted reference range: 10*3/?L. The reference range was not used to interpret this result as normal/abnormal. GRAN MAT (NEUT) % (test code = 770-8) 59.0 % IMM GRAN % (test code = 9583022727) 0.70 % LYMPH % (test code = 736-9) 27.6 % MONO % (test code = 5905-5) 7.7 % EOS % (test code = 713-8) 3.4 % BASO % (test code = 706-2) 1.6 % GRAN MAT x10^3(ANC) (test code = 4271897249) 7.54 10*3/uL 1.88-7.09 H IMM GRAN x10^3 (test code = 8233835712) 0.09 10*3/uL 0.00-0.06 H LYMPH x10^3 (test code = 731-0) 3.53 10*3/uL 1.32-3.29 H MONO x10^3 (test code = 742-7) 0.98 10*3/uL 0.33-0.92 H EOS x10^3 (test code = 711-2) 0.44 10*3/uL 0.03-0.39 H BASO x10^3 (test code = 704-7) 0.21 10*3/uL 0.01-0.07 H Lab Interpretation (test code = 35171-1) Abnormal [facility] [place], [place]VITAMIN [place], [id number] 20:34:43* Test Item Value Reference Range Interpretation Comme [facility] VIT D 25OH (test code = 19765-3) 27 ng/mL 25-80 DARIUSZ (test code = DARIUSZ) Deficiency: <20 ng/mLInsufficiency : 20-24 ng/mLOptimal: 25-80 ng/mL Lab Interpretation (test code = 11262-1) Normal [facility] [place], TXLIPID PANEL (73277)(TOTAL CHOLESTEROL, TRIGLYCERIDES, HDL)2022-11-06 20:26:42* Test Item Value Reference Range Interpretation Comme nts CHOL (test code = 5382687109) 198 mg/dL 120-200 HDL (test code = 5416333568) 44 mg/dL >=50 L HDLC RATIO (test code = 5404724413) 4.5 <=4.5 TRIG (test code = 8947565048) 238 mg/dL 30-170 H LDL CHOL (test code = 02211-3) 106 mg/dL <=160 VLDL (test code = 7711691502) 48 mg/dL 5-60 Lab Interpretation (test cod e = 27355-1) Abnormal [facility] [place], TXTHYROID STIMULATING [id number] 20:24:26 * Test Item Value Reference Range Interpretation Comme nts TSH (test code = 5778681671) 1.16 See_Comment [Automated VDI Laboratorya ge] The system which generated this result transmitted reference range: 0.45 - 4.70 mIU/L. The reference range was not used to interpret this result as normal/abnormal. Lab Interpretation (test code = 46740-2) Normal [facility] [place], TXFREE [id number] 20:10:20* Test Item Value Reference Range Interpretation Comme nts FREE T4 (test code = 1781016404) 1.00 See_Comment [Automated VDI Laboratorya ge] The system which generated this result transmitted reference range: 0.78 - 2.20 ng/dL:. The reference range was not used to interpret this result as normal/abnormal. Lab Interpretation (test code = 20677-5) Normal [facility] [place], TXGLYCOSYLATED HEMOGLOBIN (A1C)2022-11-06 19:51:59* Test Item Value Reference Range Interpretation Comme nts HGB A1C (test code = 4548-4) 5.6 % 4.0-5.7 DARIUSZ (test code = DARIUSZ) Reference RangesNormal: <5.7%Prediabetes: 5.7 - 6.4%Diabetes: > 6.5% Lab Interpretation (test code = 62246-8) Normal [facility] [place], TXTHYROID STIMULATING [id number] 01:09:26 * Test Item Value Reference Range Interpretation Comme nts TSH (test code = 5189621313) See_Comment [Automated VDI Laboratorya ge] The system which generated this result transmitted reference range: 0.45 - 4.70 mIU/L. The reference range was not used to interpret this result as normal/abnormal. Lab Interpretation (test code = 84994-0) Normal [facility] [place], TXFREE [id number] 00:55:41* Test Item Value Reference Range Interpretation Comme nts FREE T4 (test code = 6478199978) See_Comment [Automated VDI Laboratorya [employer]] The system which generated this result transmitted reference range: 0.78 - 2.20 ng/dL:. The reference range was not used to interpret this result as normal/abnormal. Lab Interpretation (test code = 75623-1) Normal [facility] [place], TXCOMP. METABOLIC PANEL (88169)2022-05-04 04:23:12* Test Item Value Reference Range Interpretation Comme nts NA (test code = 7312691252) 138 mmol/L 135-145 K (test code = 0065844462) 4.5 mmol/L 3.5-5.0 CL (test code = 0094426577) 102 mmol/L 98-108 CO2 TOTAL (test code = 9414858219) 28 mmol/L 23-31 AGAP (test code = 6967661993) 2-16 BUN (test code = 7833981354) 10 mg/dL 7-23 GLUCOSE (test code = 4173157532) 127 mg/dL 70-110 H CREATININE (test code = 9543621806) 0.69 mg/dL 0.50-1.04 TOTAL BILI (test code = 8944127329) 0.5 mg/dL 0.1-1.1 CALCIUM (test code = 8528264340) 9.6 mg/dL 8.6-10.6 T PROTEIN (test code = 5563931283) 7.8 g/dL 6.3-8.2 ALBUMIN (test code = 6390919155) 4.6 g/dL 3.5-5.0 ALK PHOS (test code = 8792051075) 90 U/L 34-122 ALTv (test code = 1742-6) 32 U/L 5-35 AST(SGOT) (test code = 1986887244) 36 U/L 13-40 eGFR (test code = 9746475345) mL/min/1.73m2 DARIUSZ (test code = DARIUSZ) Association of Glomerular Filtration Rate (GFR) and Staging of Kidney Disease* + --+ --+ ------+| GFR (mL/min/1.73 m2) ?| With Kidney Damage ?| ?Without Kidney Damage+ --------+ --------+ +| ?>90 ?| ?Stage one ?| ? Normal ?+ ---+ ---+ -------+| ?60-89 ?| ?Stage two ?| ? Decreased GFR ? + --+ --+ ------+| ?30-59 ?| ?Stage three ?| ? Stage three ? + --+ --+ ------+| ?15-29 ?| ?Stage four ? | ? Stage four ?+ ---+ ---+ -------+| ?<15 (or dialysis) ? ?| ?Stage five ? | ? Stage five ?+ ---+ ---+ -------+ *Each stage assumes the associated GFR level has been in effect for at least three months. ?Stages 1 to 5, with or without kidney disease, indicate chronic kidney disease. Notes: Determination of stages one and two (with eGFR >59mL/min/1.73 m2) requires estimation of kidney damage for at least three months as defined by structural or functional abnormalities of the kidney, manifested by either:Pathological abnormalities or Markers of kidney damage (including abnormalities in the composition of the blood or urine or abnormalities in imaging tests). Lab Interpretation (test code = 39542-3) Abnormal [facility] WITH [id number] 22:08:05* Test Item Value Reference Range Interpretation Comme nts WBC (test code = 6690-2) See_Comment H [Automated message] The system which generated this result transmitted reference range: 4.30 - 11.10 10*3/?L. The reference range was not used to interpret this result as normal/abnormal. RBC (test code = 789-8) See_Comment L [Automated message] The system which generated this result transmitted reference range: 3.93 - 5.25 10*6/?L. The reference range was not used to interpret this result as normal/abnormal. HGB (test code = 718-7) 9.9 g/dL 11.6-15.0 L HCT (test code = 4544-3) 27.0 % 35.7-45.2 L MCV (test code = 787-2) 76.5 fL 80.6-95.5 L MCH (test code = 785-6) 28.0 pg 25.9-32.8 MCHC (test code = 786-4) 36.7 g/dL 31.6-35.1 H RDW-SD (test code = 03559-1) 43.6 fL 39.0-49.9 RDW-CV (test code = 788-0) 25.8 % 12.0-15.5 H PLT (test code = 777-3) See_Comment H [Automated message] The system which generated this result transmitted reference range: 166 - 358 10*3/?L. The reference range was not used to interpret this result as normal/abnormal. MPV (test code = 86486-7) 10.1 fL 9.5-12.9 NRBC/100 WBC (test code = 0324522365) See_Comment [Automated message] The system which generated this result transmitted reference range: 0.0 - 10.0 /100 WBCs. The reference range was not used to interpret this result as normal/abnormal. NRBC x10^3 (test code = 7112789394) See_Comment [Automated message] The system which generated this result transmitted reference range: 10*3/?L. The reference range was not used to interpret this result as normal/abnormal. GRAN MAT (NEUT) % (test code = 770-8) 82.0 % IMM GRAN % (test code = 9516247338) 1.00 % LYMPH % (test code = 736-9) 14.3 % MONO % (test code = 5905-5) 2.0 % EOS % (test code = 713-8) 0.0 % BASO % (test code = 706-2) 0.7 % GRAN MAT x10^3(ANC) (test code = 4307638186) 11.11 10*3/uL 1.88-7.09 H IMM GRAN x10^3 (test code = 9960111265) 0.14 10*3/uL 0.00-0.06 H LYMPH x10^3 (test code = 731-0) 1.93 10*3/uL 1.32-3.29 MONO x10^3 (test code = 742-7) 0.27 10*3/uL 0.33-0.92 L EOS x10^3 (test code = 711-2) 0.03-0.39 L BASO x10^3 (test code = 704-7) 0.09 10*3/uL 0.01-0.07 H Lab Interpretation (test code = 42105-4) Abnormal [facility] WITH [id number] 22:08:05* Test Item Value Reference Range Interpretation Comme nts WBC (test code = 6690-2) See_Comment H [Automated message] The system which generated this result transmitted reference range: 4.30 - 11.10 10*3/?L. The reference range was not used to interpret this result as normal/abnormal. RBC (test code = 789-8) See_Comment L [Automated message] The system which generated this result transmitted reference range: 3.93 - 5.25 10*6/?L. The reference range was not used to interpret this result as normal/abnormal. HGB (test code = 718-7) 9.9 g/dL 11.6-15.0 L HCT (test code = 4544-3) 27.0 % 35.7-45.2 L MCV (test code = 787-2) 76.5 fL 80.6-95.5 L MCH (test code = 785-6) 28.0 pg 25.9-32.8 MCHC (test code = 786-4) 36.7 g/dL 31.6-35.1 H RDW-SD (test code = 32009-9) 43.6 fL 39.0-49.9 RDW-CV (test code = 788-0) 25.8 % 12.0-15.5 H PLT (test code = 777-3) See_Comment H [Automated message] The system which generated this result transmitted reference range: 166 - 358 10*3/?L. The reference range was not used to interpret this result as normal/abnormal. MPV (test code = 81258-7) 10.1 fL 9.5-12.9 NRBC/100 WBC (test code = 3815676292) See_Comment [Automated message] The system which generated this result transmitted reference range: 0.0 - 10.0 /100 WBCs. The reference range was not used to interpret this result as normal/abnormal. NRBC x10^3 (test code = 1479702518) See_Comment [Automated message] The system which generated this result transmitted reference range: 10*3/?L. The reference range was not used to interpret this result as normal/abnormal. GRAN MAT (NEUT) % (test code = 770-8) 82.0 % IMM GRAN % (test code = 5714041087) 1.00 % LYMPH % (test code = 736-9) 14.3 % MONO % (test code = 5905-5) 2.0 % EOS % (test code = 713-8) 0.0 % BASO % (test code = 706-2) 0.7 % GRAN MAT x10^3(ANC) (test code = 2454595076) 11.11 10*3/uL 1.88-7.09 H IMM GRAN x10^3 (test code = 8590443830) 0.14 10*3/uL 0.00-0.06 H LYMPH x10^3 (test code = 731-0) 1.93 10*3/uL 1.32-3.29 MONO x10^3 (test code = 742-7) 0.27 10*3/uL 0.33-0.92 L EOS x10^3 (test code = 711-2) 0.03-0.39 L BASO x10^3 (test code = 704-7) 0.09 10*3/uL 0.01-0.07 H Lab Interpretation (test code = 07629-9) Abnormal [facility] WITH [id number] 22:08:05* Test Item Value Reference Range Interpretation Comme nts WBC (test code = 6690-2) See_Comment H [Automated message] The system which generated this result transmitted reference range: 4.30 - 11.10 10*3/?L. The reference range was not used to interpret this result as normal/abnormal. RBC (test code = 789-8) See_Comment L [Automated message] The system which generated this result transmitted reference range: 3.93 - 5.25 10*6/?L. The reference range was not used to interpret this result as normal/abnormal. HGB (test code = 718-7) 9.9 g/dL 11.6-15.0 L HCT (test code = 4544-3) 27.0 % 35.7-45.2 L MCV (test code = 787-2) 76.5 fL 80.6-95.5 L MCH (test code = 785-6) 28.0 pg 25.9-32.8 MCHC (test code = 786-4) 36.7 g/dL 31.6-35.1 H RDW-SD (test code = 52761-5) 43.6 fL 39.0-49.9 RDW-CV (test code = 788-0) 25.8 % 12.0-15.5 H PLT (test code = 777-3) See_Comment H [Automated message] The system which generated this result transmitted reference range: 166 - 358 10*3/?L. The reference range was not used to interpret this result as normal/abnormal. MPV (test code = 31950-9) 10.1 fL 9.5-12.9 NRBC/100 WBC (test code = 6039291589) See_Comment [Automated message] The system which generated this result transmitted reference range: 0.0 - 10.0 /100 WBCs. The reference range was not used to interpret this result as normal/abnormal. NRBC x10^3 (test code = 2173890772) See_Comment [Automated message] The system which generated this result transmitted reference range: 10*3/?L. The reference range was not used to interpret this result as normal/abnormal. GRAN MAT (NEUT) % (test code = 770-8) 82.0 % IMM GRAN % (test code = 8188742709) 1.00 % LYMPH % (test code = 736-9) 14.3 % MONO % (test code = 5905-5) 2.0 % EOS % (test code = 713-8) 0.0 % BASO % (test code = 706-2) 0.7 % GRAN MAT x10^3(ANC) (test code = 4958379823) 11.11 10*3/uL 1.88-7.09 H IMM GRAN x10^3 (test code = 6422139974) 0.14 10*3/uL 0.00-0.06 H LYMPH x10^3 (test code = 731-0) 1.93 10*3/uL 1.32-3.29 MONO x10^3 (test code = 742-7) 0.27 10*3/uL 0.33-0.92 L EOS x10^3 (test code = 711-2) 0.03-0.39 L BASO x10^3 (test code = 704-7) 0.09 10*3/uL 0.01-0.07 H Lab Interpretation (test code = 27280-0) Abnormal [facility] [place] [id number] 15:26:20* Test Item Value Reference Range Interpretation Comme nts POCT Molecular Strep (test c ode = 29362-0) Negative Negative Lab Interpretation (test cod e = 33053-0) Normal [facility] [place], [place] Procedure Notes Date/Time Note Provider Source 2023-01-18 10:00:00 Formatting of this n ote might be different from the original. VASCULAR AND INTERVENTIONAL RADIOLOGY PROCEDURE NOTE Pre-procedure diagnosis: Thyroid nodule Post-procedure diagnosis: Same Procedure: Ultrasound-guided thyroid biopsy Findings: Successful ultrasound-guided FNA of isthmus nodule (3 25G passes) Complications: None Condition: Unchanged Estimated blood loss: Minimal Full dictated note to follow in PACS. Associated attestation - Samir Huerta MD - 01/18/2023 3:16 PM CDT I, Dr. Samir Huerta, have reviewed and agree with the resident's note. RAD-VASCULAR & INTERVENTIONAL RADIOLOGY [facility] Notes Date/Time Note Provider Source 2024-09-17 10:45:00 Images from the original note were not included. Venipuncture collection performed by clean technique on the left anticubitus. Total of 1 attempts were made. Slight pressure and a bandage/dressing were applied to the site(s). The patient experienced no complications. The following specimens were processed according to instructions and sent to [email or web address] laboratories per lab order on 09/17/2024 : LT BLUE SST 1 RED LAV 2 PPT DK GREEN (LiHep) DK GREEN (SodH) POSADA DK BLUE (K2) DK BLUE (S) ACD Blood Culture NIPT/NTD [facility] 2024-02-22 00:32:55 Pt given printed and verbal discharge instructions regarding palpitations, & headaches. Pt verbalized understanding of instructions, pt awake alert oriented, resp reg unlabored, skin w/d, color appropriate for race, moves all ext well,pt encouraged to follow up with pcp. Advised to seek medical attention for new/prolonged/worsening of symptoms. No adverse reaction to meds given in ER noted upon discharge. PIV d'cd, dressing to site, catheter in tact. Awake, alert oriented, resp reg unlabored, skin w/d, pt leaving amb with steady gait, in no apparent distress. [facility] 2024-02-21 20:25:04 Pt arrives ambulatory to ED reporting that she believes her BP is high, she has had a bad headache and has recently been having issues with her hearing, states it feels as though both ears are clogged up, and that she has a knot in her throat making it difficult to swallow, but that it comes and goes. She said she was prescribed abx about a week and a half ago but it has not helped. She reports that today she took her BP med, lisinopril/hctz 03/14.5, this am around 10am and then again around 1900. She also took 2 Excedrin @1900 as well, to try to help with the headache but has had no relief. Adina Ridley RN [facility] 2023-01-28 10:18:30 Formatting of this n ote might be different from the original. Called patient about the benign FNA results, she reports difficulty swallowing with discomforts, given the size of nodule and her symptoms, she would like to proceed with surgery, will refer her to surgical evaluation. Briefly discussed with her about surgical complications and she may need thyroid replacement lifelong after surgery, she expressed understanding and she will discuss with surgical team for details. [facility] 2023-01-22 11:47:09 Formatting of this n ote might be different from the original. Sent pt [facility] message letting her know Dr. Ortiz had ordered CT in place of the MRI. Advised for her to schedule f/u appt after to discuss results and further plan of care. [facility] 2023-01-22 09:13:01 Formatting of this n ote might be different from the original. We can order CT, not as good as MRI. If CT negative, then we might have to order LP. PN-NEUROLOGY STAFF [facility] 2023-01-17 16:33:58 Formatting of this n ote might be different from the original. Routing to provider for review and recommendations. [facility] 2023-01-17 10:37:08 Formatting of this n ote might be different from the original. Patient called saying she went to have her MRI this morning that Dr. Ortiz ordered, however, she was unable to have it done. They told her that since she has implants in her jaw they couldn't do it. She's wanting to know what to do now. Payton Bustos [facility] 2022-12-21 13:59:30 Formatting of this n ote might be different from the original. ZETIA 10MG TAB QTY: 90 LAST FILLED: [id number] Betzy Sherwood [facility]"
[2024-10-21 05:47] LABS: Absolute Basophils 0.2 K/uL (0-0.5); Absolute Eosinophils 0.4 K/uL (0-0.5); Absolute Lymphocytes (CBC) 3.4 K/uL (0.7-4.9); Absolute Monocytes 0.8 K/uL (0.1-1.3); Absolute Neutrophil 6.6 K/uL (1.8-8.0); Basophils % 1.4 % (0-1.3); Eosinophils % 3.4 % (0-4.4); Hematocrit 33.6 % (36.0-45.0); Hemoglobin 10.5 g/dL (12.0-15.0); Lymphocytes % 29.7 % (15.3-44.8); MCH 18.6 pg (27.0-35.0); MCHC 31.2 g/dL (32.0-36.0); MCV 59.6 fL (80-100); MPV 8.3 fL (7.6-11.3); Monocytes % 7.4 % (3.3-12.3); Neutrophils % 58.1 % (41.7-73.7); Nucleated Red Blood Cells % 0.1 % (0-0); Platelets 559 thou/uL (152-406); RBC Red Blood Cell Count 5.64 M/uL (3.86-4.86); Red Cell Distribution Width 19.5 % (12.1-15.2)
[2024-10-21 05:52] LABS: PT Prothrombin Time 11.9 SECONDS (10-13.0); Protime INR 1.05
[2024-10-21 06:09] LABS: ALT/SGPT 42 U/L (13-56); AST/SGOT 24 U/L (15-37); Albumin 3.4 g/dL (3.4-5.0); Albumin/Globulin Ratio 0.9 (1.1-1.8); Alkaline Phosphatase 82 U/L (45-117); Anion Gap 11.4 mEq/L (5.0-15.0); BUN Blood Urea Nitrogen 12 mg/dL (7-18); Bicarbonate 25 mEq/L (21-32); Bilirubin Direct 0.2 mg/dL (0-0.2); Bilirubin Indirect, Calculated 0.6 mg/dL (0.2-0.8); Bilirubin Total 0.8 mg/dL (0.2-1.0); C-Reactive Protein 3.39 mg/L (<3.00); Globulin 3.6 g/dL (2.3-3.5); Glomerular Filtration Rate 96 ml/min (=/>90); Glucose Level 117 mg/dL (74-106); Magnesium 1.9 mg/dL (1.6-2.4); NT PRO-BNP 16 pg/mL (<125); Potassium 3.4 mEq/L (3.5-5.1); Sodium Level 137 mEq/L (136-145)
[2024-10-21 06:14] LABS: Troponin High Sensitivity < 3.0 pg/mL (<58.9)
--- NOTE | 2024-10-21 06:21 | RAD REPORT ---
EXAM: CT Head/Brain Without Contrast HISTORY: syncope COMPARISON: CT Head/Brain Without Contrast 03/07/2019 TECHNIQUE: Head/brain axial images acquired without contrast. Coronal and sagittal reformats created. Exam performed according to departmental dose-optimization program which includes automated exposure control, adjustment of mA and/or kV according to patient size, and/or use of iterative recon struction technique. FINDINGS: No midline shift, mass effect, intracranial hemorrhage, or hydrocephalus. Brain parenchyma unremarkable. Minimal mucosal thickening in right maxillary, bilateral ethmoid, right maxillary, and sphenoid sinus es. No skull fracture or significant skull lesion. Minimal left mastoid air cell opacification. IMPRESSION: Unremarkable CT head/brain without contrast. Electronically signed by: Chase Rodrigues MD 10/21/2024 06:17 AM CDT Due to temporary technical issues with the PACS/[employer] reporting system, reports are being svitlana d by the in-house radiologist without review as a courtesy to ensure prompt reporting the interpreting radiologist is fully responsible for the content of the report. Transcribed Date/Time: 10/21/2024 6:21 AM
--- NOTE | 2024-10-21 06:25 | RAD REPORT ---
EXAM DESCRIPTION: Chest Single View CLINICAL HISTORY: CHEST PAIN COMPARISON: None TECHNIQUE: Single AP view of the chest. FINDINGS: Lung volumes adequate. Cardiac silhouette is normal in size. No pneumothorax. No large pleural effusion. No focal consolidation. No acute bony finding. IMPRESSION: No evidence of acute cardiopulmonary disease. Electronically signed by: Cheryl Self MD 10/21/2024 06:20 AM CDT RP TYG Due to temporary technical issues with the PACS/[employer] reporting system, reports are being svitlana d by the in-house radiologist without review as a courtesy to ensure prompt reporting the interpreting radiologist is fully responsible for the content of the report. Transcribed Date/Time: 10/21/2024 6:25 AM
[2024-10-21 06:40] LABS: Specific Gravity 1.009 (1.005-1.030); Urine Bacteria None Seen /HPF (<20); Urine Bilirubin NEGATIVE (Negative); Urine Blood Negative (Negative); Urine Clarity Extremely Turbid (Clear); Urine Color Light-Yellow (Yellow); Urine Glucose NEGATIVE (Negative); Urine Ketones NEGATIVE (Negative); Urine Micro Reflex YN NO BILL MICROSCOPIC; Urine Nitrite NEGATIVE (Negative); Urine Protein NEGATIVE (Negative); Urine RBC <5 /HPF (None Seen); Urine Urobilinogen Normal (Normal); Urine WBC <5 /HPF (<5); Urine pH 6.5 (5.0-7.0)
[2024-10-21 06:42] LABS: Specific Gravity 1.009 (1.005-1.030)
[2024-10-21 06:51] LABS: Barbiturates NEGATIVE (NEGATIVE); Benzodiazepines NEGATIVE (NEGATIVE); Cocaine NEGATIVE (NEGATIVE); METHAMPHETAM NEGATIVE (NEGATIVE); Methadone NEGATIVE (NEGATIVE); Opiates NEGATIVE (NEGATIVE); Phencyclidine NEGATIVE (NEGATIVE); THC Cannibis NEGATIVE (NEGATIVE)
--- NOTE | 2024-10-21 07:16 | ER ---
Nurse's Notes [facility] Name: Faiza Brown Age: 44 yrs Sex: Female : 1980 Arrival Date: 10/21/2024 Time: 05:20 Bed 17 Private MD: Diagnosis: Acute syncopal episode, atypical chest pain, acute generalized weakness Presentation: 10/21 05:21 Chief complaint: EMS states: Pt started having sharp chest pain last night that felt kd3 like "and ice pic going through the middle of her chest". Pt says she took her BP and noted that it was in the 200's. She took her regular dose of lisinopril and went to bed. Early this morning, she got up and took her BP again and noted it to be in the 190's. at that time the pt took a second dose of her lisinopril and shortly after, she had a syncopal episode while using the restroom. PT states that she estimates she was on the ground for approximately an hour before she woke up. Pt now reports no pain but reports numbness to the right arm. Coronavirus screen: Vaccine status: Patient reports receiving the 2nd dose of the covid vaccine. Ebola Screen: No symptoms or risks identified at this time. Initial Sepsis Screen: Does the patient meet any 2 criteria? No. Patient's initial sepsis screen is negative. Does the patient have a suspected source of infection? No. Patient's initial sepsis screen is negative. Risk Assessment: Do you want to hurt yourself or someone else? Patient reports no desire to harm self or others. Onset of symptoms was October 21, 2024. 05:21 Method Of Arrival: EMS: [facility] kd3 05:21 Acuity: SIL 3 kd3 Triage Assessment: 05:26 General: Appears in no apparent distress. Behavior is calm, cooperative. Pain: kd3 Complains of pain in chest. Cardiovascular: Capillary refill < 3 seconds Patient's skin is warm and dry. Historical: - Allergies: 05: Latex; kd3 - PMHx: 05:26 Hypertension; Myocardial infarction; kd3 - Immunization history:: Adult Immunizations up to date. - Infectious Disease History:: Denies. - Social history:: Smoking status: Patient denies any tobacco usage or history of. - Family history:: not pertinent. Screenin:33 [facility] ED Fall Risk Assessment (Adult) History of falling in the last 3 months, kd3 including since admission No falls in past 3 months (0 pts) Confusion or Disorientation No (0 pts) Intoxicated or Sedated No (0 pts) Impaired Gait No (0 pts) Mobility Assist Device Used No (0 pt) Altered Elimination No (0 pt) Score/Fall Risk Level 0 - 2 = Low Risk Maintained a safe environment. Abuse screen: Denies threats or abuse. Denies injuries from another. Nutritional screening: No deficits noted. Tuberculosis screening: No symptoms or risk factors identified. Assessment: 05:30 General: Appears in no apparent distress. Behavior is calm, cooperative. Pain: Denies kd3 pain. Pain radiates to right arm Pain began suddenly. Neuro: No deficits noted. Level of Consciousness is awake, alert, obeys commands, Oriented to person, place, time, situation. Cardiovascular: Capillary refill < 3 seconds Patient's skin is warm and dry. Pulses are palpable in right radial artery and left radial artery. Respiratory: Airway is patent Trachea midline Respiratory effort is even, unlabored, Respiratory pattern is regular, symmetrical. 06:30 Reassessment: No changes from previously documented assessment. Patient and/or family km10 updated on plan of care and expected duration. Pain level reassessed. Vital Signs: 05:21 BP 156 / 101; Pulse 70; Resp 19; Temp 97.7(O); Pulse Ox 98% on R/A; Weight 99.79 kg; kd3 Height 5 ft. 4 in. ; Pain 0/10; 05:32 BP 143 / 89; Pulse 65; Resp 16; Pulse Ox 98% on R/A; kd3 06:40 BP 137 / 78; Pulse 65; Resp 16; Pulse Ox 100% ; km10 05:21 Body Mass Index 37.76 (99.79 kg, 162.56 cm) kd3 05:21 Pain Scale: Adult kd3 Vitals: 06:40 Cardiac Rhythm Assessment Regular. km10 NIH Stroke Scale Scores: 07:16 NIHSS Score: 0 sp4 ED Course: 05:20 Patient arrived in ED. jj6 05:21 Jazmin Rosales, RN is Primary Nurse. kd3 05:26 Triage completed. kd3 05:26 Arm band placed on right wrist. kd3 05:29 Brando Herron MD is Attending Physician. sp4 05:33 Patient has correct armband on for positive identification. Provided Education on: kd3 syncope . Client placed on continuous cardiac and pulse oximetry monitoring. NIBP monitoring applied. phototypesetting equipment monitor on. 05:33 No provider procedures requiring assistance completed. Inserted saline lock: 20 gauge kd3 in left antecubital area, using aseptic technique. Blood collected. Flushed with 10 mL NS. Patient maintains SpO2 saturation greater than 95% on room air. 05:58 CT Head Brain wo Cont In Process Unspecified. EDMS 06:09 XRAY Chest (1 view) In Process Unspecified. EDMS 07:15 Santos Hager MD is Hospitalizing Provider. sp4 Administered Medications: No medications were administered Medication: 05:34 VIS not applicable for this client. kd3 Outcome: 07:16 Decision to Hospitalize by Provider. sp4 13:02 Patient left the ED. kc6 NIH Stroke Scale - NIH Stroke Score Date: 10/21/2024 Time: 07:16 Total Score = 0 10. Dysarthria (speech clarity - read or repeat words) - 0(Normal) 11. Extinction and Inattention (visual/tactile/auditory/spatial/personal) - 0(No abnormality) 1a. Level of Consciousness (LOC) - 0(Alert) 1b. Level of Consciousness (LOC) (Month \\T\\ Age) - 0(Both) 1c. LOC Commands (Open \\T\\ Closes Eyes/Artificial Limb Maker) - 0(Both) 2. Best Gaze (Lateral Gaze Paresis) - 0(Normal) 3. Visual Field Loss - 0(No visual loss) 4. Facial Palsy - 0(Normal) 5a. Left Arm: Motor (10-second hold) - 0(No drift) 5b. Right Arm: Motor (10-second hold) - 0(No drift) 6a. Left Leg: Motor (5-second hold - always test supine) - 0(No drift) 6b. Right Leg: Motor (5-second hold - always test supine) - 0(No drift) 7. Limb Ataxia (finger/nose \\T\\ heel/schultz - test with eyes open) - 0(Absent) 8. Sensory Loss (pinprick arms/legs/face) - 0(Normal) 9. Best Language: Aphasia (description/naming/reading) - 0(No aphasia) Initials: sp4 Signatures: Dispatcher [employer] Bianca Pearson jj6 Jazmin Rosales RN RN kd3 Yun Waldron RN RN kc6 Brando Herron MD MD sp4 Shannan Rueda RN RN km10
--- NOTE | 2024-10-21 07:16 | EDPHYS ---
Physician Documentation [facility] Name: Faiza Brown Age: 44 yrs Sex: Female : 1980 Arrival Date: 10/21/2024 Time: 05:20 Bed 17 Private MD: ED Physician Brando Herron HPI: 10/21 05:29 This 44 yrs old Female presents to ER via EMS with complaints of Chest Pain. sp4 07:12 Patient presents with acute syncopal episode at home associated with chest pain and sp4 generalized weakness. Historical: - Allergies: 05:26 Latex; kd3 - PMHx: 05:26 Hypertension; Myocardial infarction; kd3 - Immunization history:: Adult Immunizations up to date. - Infectious Disease History:: Denies. - Social history:: Smoking status: Patient denies any tobacco usage or history of. - Family history:: not pertinent. ROS: 07:12 Constitutional: Negative for fever, chills, and weight loss, positive for chest pain sp4 positive for syncopal episode positive for generalized weakness 07:12 All other systems are negative, Exam: 07:12 Constitutional: This is a well developed, well nourished patient who is awake, alert, sp4 and in no acute distress. Head/Face: Normocephalic, atraumatic. Eyes: Pupils equal round and reactive to light, extra-ocular motions intact. Lids and lashes normal. Conjunctiva and sclera are not injected. Cornea within normal limits. Periorbital areas with no swelling, redness, or edema. ENT: Nares patent. No nasal discharge, no septal abnormalities noted. Tympanic membranes are normal and external auditory canals are clear. Oropharynx with no redness, swelling, or masses, exudates, or evidence of obstruction, uvula midline. Mucous membranes moist. Neck: Trachea midline, no thyromegaly or masses palpated, and no cervical lymphadenopathy. Supple, full range of motion without nuchal rigidity, or vertebral point tenderness. Chest/axilla: Normal chest wall appearance and motion. Nontender with no deformity. No lesions are appreciated. Cardiovascular: Regular rate and rhythm with a normal S1 and S2. No gallops, murmurs, or rubs. Normal PMI, no JVD. No pulse deficits. Respiratory: Lungs have equal breath sounds bilaterally, clear to auscultation and percussion. No rales, rhonchi or wheezes noted. No increased work of breathing, no retractions or nasal flaring. Abdomen/GI: Soft, with normal bowel sounds. No distension or tympany. No guarding or rebound. No evidence of tenderness throughout. Back: No spinal tenderness. No costovertebral tenderness. Skin: Warm, dry with normal turgor. Normal color with no rashes, no lesions, and no evidence of cellulitis. MS/ Extremity: Pulses equal, no cyanosis. Neurovascular intact. Full, normal range of motion. Neuro: Awake and alert, GCS 15, oriented to person, place, time, and situation. Cranial nerves II-XII grossly intact. Motor strength 5/5 in all extremities. Sensory grossly intact. Psych: Awake, alert, with orientation to person, place and time. Behavior, mood, and affect are within normal limits 07:12 ECG was reviewed by the Attending Physician. EKG at 0 526 normal sinus rhythm rate 68 Vital Signs: 05:21 BP 156 / 101; Pulse 70; Resp 19; Temp 97.7(O); Pulse Ox 98% on R/A; Weight 99.79 kg; kd3 Height 5 ft. 4 in. ; Pain 0/10; 05:32 BP 143 / 89; Pulse 65; Resp 16; Pulse Ox 98% on R/A; kd3 06:40 BP 137 / 78; Pulse 65; Resp 16; Pulse Ox 100% ; km10 05:21 Body Mass Index 37.76 (99.79 kg, 162.56 cm) kd3 05:21 Pain Scale: Adult kd3 NIH Stroke Scale Scores: 07:16 NIHSS Score: 0 sp4 MDM: 05:31 Medical Screening Exam initiated sp4 07:14 Differential diagnosis: acute myocardial infarction, acute pericarditis, anxiety, sp4 coronary artery disease chest wall pain, congestive heart failure esophagitis, gastritis. HEART Score: History: Slightly Suspicious (0), ECG: Normal (0), Age: < or = 45 years (0), Risk Factors: 1 or 2 risk factors (1), Troponin: < or = 1 x Normal Limit (0), Total Score = 1. The patient was not given aspirin in the Emergency Department. Administered by EMS. Data reviewed: vital signs, nurses notes, lab test result(s), EKG, radiologic studies, CT scan, plain films. ED course: Stable for admission for further evaluation of syncope.. 10/21 05:30 Order name: Basic Metabolic Panel; Complete Time: 07:04 sp4 10/21 05:30 Order name: CBC with Diff sp4 10/21 05:30 Order name: LFT's; Complete Time: 07:04 sp4 10/21 05:30 Order name: Magnesium; Complete Time: 07:04 sp4 10/21 05:30 Order name: NT PRO-BNP; Complete Time: 07:04 sp4 10/21 05:30 Order name: PT-INR; Complete Time: 07:04 sp4 10/21 05:30 Order name: Troponin HS; Complete Time: 07:04 sp4 10/21 05:30 Order name: TSH; Complete Time: 07:04 sp4 10/21 05:30 Order name: T4 Free; Complete Time: 07:04 sp4 10/21 05:30 Order name: CRP; Complete Time: 07:04 4 10/21 05:31 Order name: UA W/ Microscopic; Complete Time: 07:04 sp4 10/21 05:31 Order name: Test, Urine; Complete Time: 07:04 sp4 10/21 05:31 Order name: Alcohol Level; Complete Time: 07:04 sp4 10/21 05:31 Order name: Urine Drug Screen; Complete Time: 07:04 sp4 10/21 06:04 Order name: CBC Smear Scan EDMS 10/21 07:58 Order name: CBC with Automated Diff EDMS 10/21 07:58 Order name: CBC with Automated Diff EDMS 10/21 07:58 Order name: Comprehensive Metabolic Panel EDMS 10/21 07:58 Order name: Comprehensive Metabolic Panel EDMS 10/21 07:58 Order name: Troponin High Sensitivity EDMS 10/21 07:58 Order name: Troponin High Sensitivity EDMS 10/21 07:58 Order name: Troponin High Sensitivity EDMS 10/21 10:12 Order name: Troponin High Sensitivity ld1 10/21 05:30 Order name: XRAY Chest (1 view) sp4 10/21 05:30 Order name: CT Head Brain wo Cont sp4 10/21 07:57 Order name: Echo with Doppler EDIA 10/21 05:30 Order name: Cardiac monitoring; Complete Time: 05:30 sp4 10/21 05:30 Order name: EKG - Nurse/Tech; Complete Time: 05: sp4 10/21 05:30 Order name: IV Saline Lock; Complete Time: : sp4 10/21 05:30 Order name: Labs collected and sent; Complete Time: : sp4 10/21 05:30 Order name: O2 Per Protocol; Complete Time: sp4 10/21 05:30 Order name: O2 Sat Monitoring; Complete Time: : sp4 EC:26 Rate is 68 beats/min. Rhythm is regular, Normal Sinus Rhythm. QRS [place] is Normal. [place] sp4 interval is normal. QRS interval is normal. QT interval is normal. No Q waves. T waves are Normal. No ST changes noted. Clinical impression: No evidence of ischemia. Interpreted by me. Reviewed by me. Administered Medications: No medications were administered Disposition Summary: 10/21/24 07:16 Hospitalization Ordered Notes: Hospitalization Status: Observation sp4 Provider: Santos Hager sp4 Condition: Stable sp4 Problem: new sp4 Symptoms: have improved sp4 Bed/Room Type: Standard sp4 Location: Telemetry/MedSurg (observation)(10/21/24 11:19) bd Room Assignment: 231(10/21/24 11:19) Diagnosis - Acute syncopal episode, atypical chest pain, acute generalized weakness sp4 Forms: - Medication Reconciliation Form sp4 - SBAR form sp4 - Leadership Thank You Letter sp4 NIH Stroke Scale - NIH Stroke Score Date: 10/21/2024 Time: 07:16 Total Score = 0 10. Dysarthria (speech clarity - read or repeat words) - 0(Normal) 11. Extinction and Inattention (visual/tactile/auditory/spatial/personal) - 0(No abnormality) 1a. Level of Consciousness (LOC) - 0(Alert) 1b. Level of Consciousness (LOC) (Month \T\ Age) - 0(Both) 1c. LOC Commands (Open \T\ Closes Eyes/Emergency Generator Mechanic) - 0(Both) 2. Best Gaze (Lateral Gaze Paresis) - 0(Normal) 3. Visual Field Loss - 0(No visual loss) 4. Facial Palsy - 0(Normal) 5a. Left Arm: Motor (10-second hold) - 0(No drift) 5b. Right Arm: Motor (10-second hold) - 0(No drift) 6a. Left Leg: Motor (5-second hold - always test supine) - 0(No drift) 6b. Right Leg: Motor (5-second hold - always test supine) - 0(No drift) 7. Limb Ataxia (finger/nose \T\ heel/schultz - test with eyes open) - 0(Absent) 8. Sensory Loss (pinprick arms/legs/face) - 0(Normal) 9. Best Language: Aphasia (description/naming/reading) - 0(No aphasia) Initials: sp4 Signatures: Dispatcher [employer] EDMS Radha Bob Kyli, RN RN kd3 Brnado Herron MD MD sp4 Corrections: (The following items were deleted from the chart) 05:30 05:30 BASIC METABOLIC PANEL+C.LAB.BRZ ordered. EDMS EDMS 05:30 05:30 CBC+H.LAB.BRZ ordered. EDMS EDMS 05:30 05:30 HEPATIC FUNCTION+C.LAB.BRZ ordered. EDMS EDMS 05:30 05:30 MAGNESIUM+C.LAB.BRZ ordered. EDMS EDMS 05:30 05:30 PROBNP+C.LAB.BRZ ordered. EDMS EDMS 05:30 05:30 PROTIME (+INR)+COAG.LAB.BRZ ordered. EDMS EDMS 05:30 05:30 Troponin High Sensitivity+C.LAB.BRZ ordered. EDMS EDMS 05:30 05:30 Chest Single View+RAD.RAD.BRZ ordered. EDMS EDMS 05:30 05:30 Head Brain Wo Cont+CT.RAD.BRZ ordered. EDMS EDMS 05:30 05:30 THYROID STIMULAT HORMONE+C.LAB.BRZ ordered. EDMS EDMS 05:30 05:30 T4 FREE+C.LAB.BRZ ordered. EDMS EDMS 09:26 07:16 Telemetry/MedSurg (Inpatient) sp4 bd 09:26 07:16 sp4 bd 10:13 10:13 Troponin High Sensitivity+C.LAB.BRZ ordered. EDMS EDMS 11:19 09:26 [facility] ER HOLD bd bd 11:19 09:26 ERHOLD- bd bd
[2024-10-21] MEDS ORDERED: ONDANSETRON 4 MG/2 ML VIAL IV PRN (07:55)
--- NOTE | 2024-10-21 08:01 | P.HP ---
Certification for Inpatient Patient admitted to: Observation With expected LOS: <2 Midnights Patient will require the following post-hospital care: None Practitioner: I am a practitioner with admitting privileges, knowledge of patient current condition, hospital course, and medical plan of care. Services: Services provided to patient in accordance with Admission requirements found in Title 42 Section 412.3 of the Code of Federal Regulations Patient History Date of Service: 10/21/24 Reason for admission: Syncope History of Present Illness: 44-year-old female with history of hypertension presents the emergency department chief complaint of syncope. She reports that she was monitoring her blood pressure overnight and it was markedly elevated, she took her lisinopril and her blood pressure was still around 190 systolic, a few hours later she took a second lisinopril and immediately after taking it walk to the bathroom. She was urinating and mixing she knew she woke up on the floor. She estimates the time that she was on the floor to be around 1 hour. She does report similar episodes in the past, she thinks maybe around 5 times in the last 20 years. Most of these episodes seem to be associated with times when she was using the restroom, urinating not having a bowel movement. She also reports some right upper extremity paresthesias/tingling, she cannot be clear about which side she was lying on when she was in the floor she does not remember. Patient was evaluated in the emergency department initial high sensitive troponin was normal, BNP was also normal at 16 chest x-ray and head CT were negative for acute findings. ED provider wishes to admit patient under observation for evaluation for syncope, ACS rule out. Allergies No Known Drug Allergies Allergy (Unverified 10/04/14 06:01) Unknown NKA Allergy (Uncoded 05/29/15 15:46) Unknown No Known Allergies Allergy (Uncoded 12/09/14 12:32) Unknown - Past Medical/Surgical History -: Hypertension -: Psychosocial/ Personal History: Lives at home with her family, cares for her aunt and triplets - Social History Alcohol use: No CD- Drugs: No Caffeine use: Yes Place of Residence: Home Review of Systems 10-point ROS is otherwise unremarkable Cardiovascular: Light Headedness, Other (Syncope) Physical Examination - Physical Exam General: Alert, In no apparent distress, Oriented x3 HEENT: Atraumatic, PERRLA Neck: Supple, 2+ carotid pulse no bruit, No LAD Respiratory: Clear to auscultation bilaterally, Normal air movement Cardiovascular: Regular rate/rhythm, Normal S1 S2 Gastrointestinal: Normal bowel sounds, No tenderness Musculoskeletal: No tenderness Integumentary: No rashes Neurological: Normal gait, Normal speech, Normal strength at 5/5 x4 extr, Normal affect - Studies Laboratory Data (last 24 hrs) 10/21/24 10/21/24 10/21/24 05:33 05:33 05:33 WBC 11.40 H Hgb 10.5 L Hct 33.6 L Plt Count 559 H PT 11.9 INR 1.05 Sodium 137 Potassium 3.4 L BUN 12 Creatinine 0.78 Glucose 117 H Magnesium 1.9 Total Bilirubin 0.8 AST 24 ALT 42 Alkaline Phosphatase 82 Assessment and Plan - Plan Assessment: Syncope Hypertension Plan: Syncope Report syncopal episode associated with using restroom/urinating Has had similar episodes in the past but not often Troponins, monitor on telemetry, obtain echocardiogram Cardiology consultation Denies shortness of breath, chest pain at this time, nontachycardic doubt PE Obtain orthostatic vital signs Hypertension Continue home medications when verified DVT PPX: Lovenox Code status: Full Discharge Plan: Home Plan to discharge in: 24 Hours - Advance Directives Does patient have a Living Will: No Does patient have a Durable POA for Healthcare: No Critical Care: No Time Spent Managing Pts Care (In Minutes): 65
[2024-10-21 09:59] LABS: Platelet Estimate ADEQ; White Blood Cell Scan OK (OK)
[2024-10-21 10:00] LABS: Blood Morphology Comment NOTED (NOT SEEN); Hypochromasia 2+; Microcytosis 3+
[2024-10-21] MEDS: ENOXAPARIN 40 MG/0.4 ML SQ SCH (11:00)
[2024-10-21] MEDS ORDERED: ENOXAPARIN 40 MG/0.4 ML SQ ONE (11:06)
[2024-10-21 13:15] VITALS: O2SAT 100
[2024-10-21 13:39] VITALS: BMI 38.2
--- NOTE | 2024-10-21 14:19 | ECHO ---
HEIGHT: 5 ft 4 in WEIGHT: 223 lb 0 oz DATE OF STUDY: 10/21/[address]: Albaro Hopper NP 2-DIMENSIONAL: YES M.MODE: YES DOPPLER: YES COLOR FLOW: YES TDS: PORTABLE: YES DEFINITY: BUBBLE STUDY: DIAGNOSIS: SYNCOPE/ HYPERTENSION CARDIAC HISTORY: CATHERIZATION: NO SURGERY: NO PROSTHETIC VALVE: NO PACEMAKER: NO MEASUREMENTS (cm) DIASTOLIC (NORMALS) SYSTOLIC (NORMALS) IVSd 1.1 (0.6-1.2) LA Diam 3.7 (1.9-4.0) LVEF 60-65% LVIDd 4.1 (3.5-5.7) LVIDs 2.5 (2.0-3.5) %FS 39% LVPWd 1.0 (0.6-1.2) Ao Diam 2.7 (2.0-3.7) 2 DIMENSIONAL ASSESSMENT: RIGHT ATRIUM: NORMAL LEFT ATRIUM: NORMAL RIGHT VENTRICLE: NORMAL LEFT VENTRICLE: NORMAL TRICUSPID VALVE: NORMAL MITRAL VALVE: NORMAL PULMONIC VALVE: NORMAL AORTIC VALVE: NORMAL PERICARDIAL EFFUSION: NONE AORTIC ROOT: NORMAL LEFT VENTRICULAR WALL MOTION: NORMAL DOPPLER/COLOR FLOW: NORMAL COMMENTS: 1. NORMAL LEFT VENTRICULAR SYSTOLIC FUNCTION, EJECTION FRACTION 60-65%, NORMAL WALL MOTION 2. NORMAL DIASTOLIC FUNCTION TECHNOLOGIST: KEVIN RUBI
[2024-10-21] MEDS ORDERED: MORPHINE 2 MG/ML SYR IV PRN (16:55)
[2024-10-21] MEDS: ACETAMINOPHEN 325 MG TABLET PO ONE (20:35)
[2024-10-21] MEDS ORDERED: HYDRALAZINE HCL 20 MG/ML VIAL IV PRN (20:58)
[2024-10-21] MEDS: lisinopriL 10 MG TAB PO SCH (21:40)
[2024-10-21] MEDS: MELATONIN 3 MG TABLET PO ONE ×2 (23:13→23:21)
[2024-10-22 05:37] LABS: Absolute Basophils 0.1 K/uL (0-0.5); Absolute Eosinophils 0.5 K/uL (0-0.5); Absolute Lymphocytes (CBC) 3.2 K/uL (0.7-4.9); Absolute Monocytes 0.9 K/uL (0.1-1.3); Absolute Neutrophil 4.8 K/uL (1.8-8.0); Basophils % 1.1 % (0-1.3); Eosinophils % 4.8 % (0-4.4); Hematocrit 30.9 % (36.0-45.0); Hemoglobin 9.6 g/dL (12.0-15.0); Lymphocytes % 34.2 % (15.3-44.8); MCH 18.7 pg (27.0-35.0); MPV 8.7 fL (7.6-11.3); Monocytes % 9.1 % (3.3-12.3); Neutrophils % 50.8 % (41.7-73.7); Nucleated Red Blood Cells % 0.1 % (0-0); Platelets 486 thou/uL (152-406); RBC Red Blood Cell Count 5.13 M/uL (3.86-4.86); Red Cell Distribution Width 19.5 % (12.1-15.2)
[2024-10-22 05:38] LABS: MCV 60.3 fL (80-100)
[2024-10-22 05:47] LABS: ALT/SGPT 33 U/L (13-56); AST/SGOT 17 U/L (15-37); Albumin 3.1 g/dL (3.4-5.0); Albumin/Globulin Ratio 0.9 (1.1-1.8); Alkaline Phosphatase 66 U/L (45-117); Anion Gap 10.6 mEq/L (5.0-15.0); BUN Blood Urea Nitrogen 15 mg/dL (7-18); Bicarbonate 23 mEq/L (21-32); Bilirubin Total 0.9 mg/dL (0.2-1.0); Globulin 3.3 g/dL (2.3-3.5); Glomerular Filtration Rate 89 ml/min (=/>90); Glucose Level 123 mg/dL (74-106); Potassium 3.6 mEq/L (3.5-5.1); Protein, Total 6.4 g/dL (6.4-8.2); Sodium Level 137 mEq/L (136-145)
[2024-10-22 05:58] LABS: Troponin High Sensitivity < 3.0 pg/mL (<58.9)
[2024-10-22 06:06] VITALS: BP 105/56; TEMP 98.7
[2024-10-22] MEDS: POTASSIUM 25 MEQ EFFERV TAB PO ONE (07:42)
--- NOTE | 2024-10-22 08:56 | P.DS ---
Admission Date: 10/21/24 Discharge Date: 10/22/24 Disposition: ROUTINE DISCHARGE Discharge Condition: GOOD Reason for Admission: Syncope Brief History of Present Illness: 44-year-old female with history of hypertension presents the emergency department chief complaint of syncope. She reports that she was monitoring her blood pressure overnight and it was markedly elevated, she took her lisinopril and her blood pressure was still around 190 systolic, a few hours later she took a second lisinopril and immediately after taking it walk to the bathroom. She was urinating and mixing she knew she woke up on the floor. She estimates the time that she was on the floor to be around 1 hour. She does report similar episodes in the past, she thinks maybe around 5 times in the last 20 years. Most of these episodes seem to be associated with times when she was using the restroom, urinating not having a bowel movement. She also reports some right upper extremity paresthesias/tingling, she cannot be clear about which side she was lying on when she was in the floor she does not remember. Patient was evaluated in the emergency department initial high sensitive troponin was normal, BNP was also normal at 16 chest x-ray and head CT were negative for acute findings. ED provider wishes to admit patient under observation for evaluation for syncope, ACS rule out. Hospital Course: Assessment: Syncope Hypertension Patient was admitted to the hospital under observation for syncope. Troponins were trended and negative x 4, EKG was without ischemic changes. Echocardiogram was also performed during hospitalization which showed normal LVEF, normal diastolic function and no significant valvular issues. No further syncopal episodes were observed for arrhythmias on telemetry. She was seen by cardiology recommends outpatient follow-up likely for Holter monitor. Patient is stable for discharge outpatient follow-up with cardiology and her PCP Continue home medications as previously prescribed Vital Signs/Physical Exam: Temp Pulse Resp BP Pulse Ox 98.7 F 73 16 105/56 L 99 10/22/24 04:00 10/22/24 04:00 10/22/24 04:00 10/22/24 04:00 10/22/24 04:00 General: Alert, In no apparent distress, Oriented x3 HEENT: Atraumatic, PERRLA Neck: Supple, JVD not distended Respiratory: Clear to auscultation bilaterally, Normal air movement Cardiovascular: Regular rate/rhythm, Normal S1 S2 Gastrointestinal: Normal bowel sounds, No tenderness Musculoskeletal: No tenderness Integumentary: No rashes Neurological: Normal speech, Normal affect Laboratory Data at Discharge: WBC 9.50 thou/uL (4.3-10.9) 10/22/24 05:09 Hgb 9.6 g/dL (12.0-15.0) L D 10/22/24 05:09 Hct 30.9 % (36.0-45.0) L 10/22/24 05:09 Plt Count 486 thou/uL (152-406) H 10/22/24 05:09 PT 11.9 SECONDS (10-13.0) 10/21/24 05:33 INR 1.05 10/21/24 05:33 Sodium 137 mEq/L (136-145) 10/22/24 05:09 Potassium 3.6 mEq/L (3.5-5.1) 10/22/24 05:09 BUN 15 mg/dL (7-18) 10/22/24 05:09 Creatinine 0.83 mg/dL (0.55-1.02) 10/22/24 05:09 Glucose 123 mg/dL (74-106) H 10/22/24 05:09 Magnesium 1.9 mg/dL (1.6-2.4) 10/21/24 05:33 Total Bilirubin 0.9 mg/dL (0.2-1.0) 10/22/24 05:09 AST 17 U/L (15-37) 10/22/24 05:09 ALT 33 U/L (13-56) 10/22/24 05:09 Alkaline Phosphatase 66 U/L (45-117) 10/22/24 05:09 Home Medications: Lisinopril/Hydrochlorothiazide [Lisinopril-Hctz 10-12.5 mg Tab] 1 tab PO BEDTIME 10/21/24 Physician Discharge Instructions: Patient was admitted to the hospital under observation for syncope. Troponins were trended and negative x 4, EKG was without ischemic changes. Echocardiogram was also performed during hospitalization which showed normal LVEF, normal diastolic function and no significant valvular issues. No further syncopal episodes were observed for arrhythmias on telemetry. She was seen by cardiology recommends outpatient follow-up likely for Holter monitor. Patient is stable for discharge outpatient follow-up with cardiology and her PCP Continue home medications as previously prescribed Diet: Regular Activity: Ad edgar Followup: Gibson Cook MD [ACTIVE - CAN ADMIT] - 1 Week Batool Dubose NP [Primary Care Provider] - 1-2 Weeks Time spent managing pt's care (in minutes): 37
--- NOTE | 2024-10-27 12:45 | EKG ---
Test Date: 2024-10-21 Test Time: 05:26:58 [employer] Inspecting Dispatcher: RALPH MEASUREMENT RESULTS: Intervals: Rate: 68 MI: 162 QRSD: 112 QT: 434 QTc: 461 Neeses: P: 42 MI: 162 QRS: 22 T: 13 INTERPRETIVE STATEMENTS: Normal sinus rhythm Normal ECG Compared to ECG 03/07/2019 08:54:47 No significant changes Electronically Signed On 10-27-24 12:31:25 CDT by Gibson Cook
== END 2024-10-22 08:52 | disposition home or self-care (01) ==
LOC: ER 05:20 → 2ND 11:26
PROVIDERS: ADMIT Hospitalist; ATTEND Hospitalist
DX: R55 Syncope and collapse (principal); I10 Essential (primary) hypertension; R20.2 Paresthesia of skin
CPT/HCPCS: 93005; 93306; 85025 ×2; 81001; 80048; 36415; 83735; 81025; 85610; 80076; 84443; 84484 ×4; 84439; 80053; 83880; 80307; 86140; 70450; 71045; 99284; 82077; J1650; G0378; J2270